=== PATIENT | female | born 1940 | race Caucasian/White ===

== ENCOUNTER → 2020-02-13 11:51 | Outpatient (CLI) | payer MEDICARE, OTHER, SELFPAY ==
--- NOTE | ~2020-02-13 | XR_ITS ---
XR cervical spine 4-5V DATE: 02/13/2020 12:27 INDICATION: Neck pain TECHNIQUE: Upright AP, open-mouth, lateral and swimmer views COMPARISON: None FINDINGS: There is straightening and mild reversal of the cervical spine. C1 and C2 are normally aligned and the odontoid process is intact. No fracture or dislocation or lock ed facet. No prevertebral soft tissue swelling. There is mild anterolisthesis at C2-3. There is moderately prominent degenerative disc disease at C3-4. There is severe degenerative disease and mild retrolisthesis at C4-5 and C5-6. There is severe degene rative disease at C6-7. There is uncovertebral joint spurring at C3-4, C4-5, C5-6 and C6-7. IMPRESSION: Straightening/reversal cervical curvature Extensive degenerative disc disease at C4-5 through C6-7, with associated mild retrolisthesis at C4-5 and C5-6 Reviewed, dictated and finalized at location A.
--- NOTE | ~2020-02-13 | XR_ITS ---
EXAMINATION: XR ankle LT min 3V DATE: 02/13/2020 12:27 INDICATION: Left ankle pain. TECHNIQUE: 4 views of left ankle were obtained. COMPARISON: None. FINDINGS: Bone alignment is normal. No fracture. Joint spaces are well maintained. There are enthesop hytes at the plantar and posterior aspects of calcaneal tuberosity. Ankle soft tissue swelling is not ed. IMPRESSION: 1. No fracture. Reviewed, dictated and finalized at location A. IMPRESSION: 1. No fracture.
== END ==
PROVIDERS: PCP Family Medicine; Visit Provider Family Medicine
DX: M25.572 Pain in left ankle and joints of left foot (principal); M50.323 Other cervical disc degeneration at C6-C7 level
CPT/HCPCS: 72050; 73610

== ENCOUNTER 2020-03-23 09:05 | Outpatient (CLI) | payer MEDICARE, OTHER, SELFPAY ==
--- NOTE | ~2020-03-23 | XR_ITS ---
EXAMINATION: XR ankle LT min 3V DATE: 03/23/2020 09:39 INDICATION: Left ankle pain. TECHNIQUE: 3 views of left ankle with weightbearing were obtained. COMPARISON: Left ankle radiographs 02/13/2020 FINDINGS: Pes planus is noted. No fracture. There is a 5.2 cm lesion in the intramedullary space of d istal tibial metadiaphysis in a pattern of chondroid matrix, likely an enchondroma. Osteopenia is not ed. Joint spaces are normal. There are enthesophytes at the plantar and posterior aspects of calcanea l tuberosity. Ankle soft tissue swelling is noted. IMPRESSION: 1. Pes planus. 2. Sclerotic lesion in distal tibial metadiaphysis, likely an enchondroma. Reviewed, dictated and finalized at location B. CTOR OF OPTIMIZATION
== END 2020-03-23 09:06 | disposition home or self-care (01) ==
LOC: CHSLAB 09:08
PROVIDERS: PCP Family Medicine; Visit Provider Orthopaedic Surgery
DX: M25.572 Pain in left ankle and joints of left foot (principal)
CPT/HCPCS: 73610

== ENCOUNTER 2020-04-07 14:05 | Outpatient (CLI) | payer MEDICARE, OTHER, SELFPAY ==
--- NOTE | ~2020-04-07 | MM_ITS ---
EXAMINATION: MM screening fallon BI w miladis HISTORY: Screening mammogram TECHNIQUE: Craniocaudal and mediolateral oblique 3-D tomosynthesis images were obtained and synthetic 2-D images were generated. CAD analysis was submitted and interpreted. COMPARISON: 12/13/2018, 03/15/2017, 03/08/2016 bilateral digital screening mammogram examinations BREAST PARENCHYMAL COMPOSITION: The breasts are almost entirely fatty. FINDINGS: There are scattered bilateral benign calcifications as well as some arterial calcification. There is no evidence of suspicious mass, calcification, or architectural distortion to suggest malig ivan in either breast. There has been no suspicious interval change. IMPRESSION: 1. No mammographic evidence of malignancy. 2. Recommend routine screening mammography in one year. BI-RADS Category 2: Benign finding(s). Reviewed, dictated and finalized at location A. 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
--- NOTE | ~2020-04-07 | DEXA_ITS ---
Bone Density Report Name: Taylor Perez Age: 79 Sex: Female Ethnicity: White Date of : 1940 Indication: osteopenia; height loss; prior fracture; hysterectomy; Referring Provider: YECENIA MEHTA Study: Bone densitometry was performed. Exam Date: April 07, 2020 Accession number: [id number] Bone Density: Region BMD T-score Z-score Classification AP Spine (L1, L2, L3) 0.906 -1.0 1.6 Normal Femoral Neck (Right) 0.490 -3.2 -0.9 Osteoporosis Total Hip (Right) 0.680 -2.2 -0.1 Osteopenia World Health Organization criteria for BMD impression classify patients as: Normal (T-score at or above -1.0), Osteopenia (T-score between -1.0 and -2.5), or Osteoporosis (T-score at or below -2.5). 10-year Fracture Risk: FRAX not reported because: Some T-score for Spine Total or Hip Total or Femoral Neck at or below -2.5 Prior hip or vertebral fracture Previous Exams: Region Exam Age BMD T-score BMD Change BMD Change Date g/cm2 vs Baseline vs Previous AP Spine(L1, L2, L3) 04/07/2020 79 0.906 -1.0 0.154(20.5%)# 0.065(7.8%)* 03/15/2017 76 0.840 -1.6 0.089(11.8%)# 0.015(1.8%)# 02/12/2015 74 0.825 -1.8 0.073(9.8%)# 0.077(10.3%)# 12/15/2010 69 0.748 -2.5 -0.004(-0.5%) 0.016(2.2%) 10/21/2008 67 0.732 -2.6 -0.020(-2.6%) -0.020(-2.6%) 03/23/2005 64 0.752 -2.4 Total Hip(Right) 04/07/2020 79 0.680 -2.2 0.016(2.4%)# 0.007(1.0%) 03/15/2017 76 0.673 -2.2 0.009(1.4%)# -0.014(-2.0%)# 02/12/2015 74 0.687 -2.1 0.023(3.5%)# -0.010(-1.4%)# 12/15/2010 69 0.697 -2.0 0.033(5.0%)* 0.039(6.0%)* 10/21/2008 67 0.657 -2.3 -0.007(-1.0%) -0.007(-1.0%) 03/23/2005 64 0.664 -2.3 *Denotes significance at 95% confidence level, LSC for AP Spine = 0.022 g/cm2, LSC for Total Hip = 0.027 g/cm2 Clinical Information Provided by Patient: Have had a previous hip or vertebral fracture Has had a low trauma fracture Has used the following medications: Vitamin D, Calcium Has the following medical conditions: Hysterectomy Patient maximum height was 64 Menopause Age: 49 No regular weight bearing exercise Drinks caffeinated beverages Onset of menses at age 10 Number of children 2 Impression: The patient has established osteoporosis, based on the Right Femoral Neck T-score and the existence of a prior fracture. The patient has risk factors, including: previous fracture. No significant bone loss was observed. Discussion: HIGH RISK OF FRACTURE. BONE DENSITY IS UNDESIRABLY
== END 2020-04-07 14:06 | disposition home or self-care (01) ==
LOC: ANHIMG 14:08
PROVIDERS: PCP Family Medicine; Visit Provider Family Medicine
DX: Z12.31 Encounter for screening mammogram for malignant neoplasm of breast (principal); Z78.0 Asymptomatic menopausal state; M81.0 Age-related osteoporosis without current pathological fracture; M16.11 Unilateral primary osteoarthritis, right hip
CPT/HCPCS: 77063; 77067; 77080

== ENCOUNTER 2020-06-29 17:20 | Emergency (ER) | payer MEDICARE, OTHER, SELFPAY ==
--- NOTE | ~2020-06-29 | XR_ITS ---
XR ankle LT min 3V DATE: 06/29/2020 17:58 INDICATION: Left ankle pain following twisting injury. Ashley a pop. TECHNIQUE: 4 views COMPARISON: 03/23/2020 left ankle FINDINGS: Diffuse osteopenia. Plantar calcaneal enthesopathy. There is mild to moderate medial soft tissue swelling of the ankle. No fracture or dislocation of the ankle or disruption of the ankle mortise is detected. No periosteal reaction or bone destruction. Probable os tibiale externum, normal variant. IMPRESSION: Mild to moderate medial soft tissue swelling of the ankle No fracture or dislocation is evident Reviewed, dictated and finalized at location A.
[2020-06-29 17:32] VITALS: BP 130/88; PULSE 80; RESP 18; TEMP 36.6; O2SAT 98
--- NOTE | 2020-06-29 17:44 | ED.LOWEXIN ---
HPI - Extremity Injury (Lower) General Chief Complaint: Fall Stated Complaint: pain in L ankle Time Seen by Provider: 06/29/20 17:40 Source: patient and RN notes reviewed Mode of arrival: wheelchair Limitations: no limitations History of Present Illness complaint: ankle injury Onset (ago): hour(s) (2) Injury: Left: ankle Type of Injury: eversion Place: home Severity: moderate Relieving factors: nothing Exacerbating factors: weight bearing, movement and palpation Context: fall and walking Associated symptoms: snap/pop sensation Other symptoms: none Treatments prior to arrival: cold therapy Related Data Home Medications Medication Instructions Recorded Confirmed brimonidine 0.1 % eye drops 1 drop EACH EYE Q8H 05/14/19 06/29/20 cholecalciferol (vitamin D3) 50 2,000 unit PO DAILY 05/14/19 06/29/20 mcg (2,000 unit) tablet coenzyme Q10 100 mg capsule 100 mg PO DAILY 05/14/19 06/29/20 ibuprofen 200 mg tablet 200 mg PO Q6H PRN 05/14/19 06/29/20 multivitamin 1 tablet PO DAILY 05/14/19 06/29/20 C,E,zinc,copper [id number] See Rx Instructions .ROUTE .COMPLEX 03/23/20 06/29/20 omega-3 fatty acids 1,000 mg 1,000 mg PO DAILY 03/23/20 06/29/20 capsule vitamin B complex 1 tablet PO DAILY 03/23/20 06/29/20 Allergies Allergy/AdvReac Type Severity Reaction Status Date / Time cephalexin Allergy Unknown Unknown Verified 03/23/20 11:00 meperidine Allergy Unknown Unknown Verified 03/23/20 11:00 alendronate sodium AdvReac Intermediate upset Verified 03/23/20 11:00 [From Fosamax] stomach Review of Systems Review of Systems: All systems reviewed & are unremarkable except as noted in HPI and below PMFSH Past Medical History Medical History Ankle arthritis Arthritis Bleeding nose GERD (gastroesophageal reflux disease) Hearing loss High cholesterol Hoarseness HTN (hypertension) Vitamin D deficiency disease Wears glasses Surgical History Surgical History H/O: hysterectomy History of hip surgery History of knee surgery Family History Family History Mother Family history of malignant neoplasm Family history of lymphoma, Onset Age: 81 Sibling Family history of diabetes mellitus in first degree relative Father Family history of pancreatic cancer, Onset Age: 58 Other Arthritis Cerebrovascular accident Diabetes mellitus Family history of lung cancer High cholesterol Hypertension Social History Social History Smoking status: Never smoker Alcohol intake: never Gender identity (if verbalized by the patient): Female Exam Const: General: healthy appearing, no acute distress and alert Nutritional Appearance: well nourished Orientation/consciousness: patient oriented x3 HENMT: Head: normal to inspection Ears: external ears normal Eyes: Conjunctivae: conjunctivae normal Pupils: Equal, round and reactive pupils present EOM: EOMs intact bilaterally Neck: Neck: normal visual inspection Resp: Effort & Inspection: normal respiratory effort Auscultation: clear to auscultation bilaterally Cardio: Rate: regular rate Rhythm: regular rhythm GI: GI Palp: Yes Soft to palpation and No Tenderness to palpation present (GI) Auscultation: normal bowel sounds Back/Spine/Pelvis: Cervical Spine: cervical ROM normal Thoracic/Lumbar Spine: thoraco-lumbar ROM normal Skin: General skin exam: normal color Rashes: no rashes Neuro: General: patient oriented x3, moves all extremities, no meningeal signs and no focal motor deficits Speech: normal speech Extrem: General: normal exam except as noted and no clubbing, cyanosis or edema Left lower extremity: ankle Details: tenderness Location: of the medial malleolus, swelling Details: medially and abnormal ROM Details: pain with ac
[2020-06-29 18:48] VITALS: BP 130/80; PULSE 90; RESP 18; TEMP 36.6; O2SAT 98
--- NOTE | 2020-07-06 17:15 | PC.NURSE ---
late note 06/29/2020 1830 air splint applied 1845 toes laya well, no discomforter
== END 2020-06-29 18:49 | disposition home or self-care (01) ==
PROVIDERS: Emergency Provider Emergency Medicine; PCP Family Medicine
DX: S93.402A Sprain of unspecified ligament of left ankle, initial encounter (principal); W19.XXXA Unspecified fall, initial encounter
CPT/HCPCS: 29515; 73610; 99282; 99283; L4350

== ENCOUNTER → 2021-08-18 12:16 | Outpatient (CLI) | payer MEDICARE, OTHER, SELFPAY ==
--- NOTE | ~2021-08-18 | XR_ITS ---
EXAM: XR thoracic spine 2V, [id number] HISTORY: M54.6 - Pain in thoracic spine COMPARISON: None available FINDINGS: Severely decreased bone density. Scoliosis. Multilevel mild degenerative disc disease. Sen escent lung changes. Aortic ectasia. Cholecystectomy. IMPRESSION: No acute osseous finding in the chest, ribs or thoracic spine. Reviewed, dictated and finalized at location K. IMPRESSION: No acute osseous finding in the chest, ribs or thoracic spine.
== END ==
PROVIDERS: PCP Family Medicine; Visit Provider Family Medicine
DX: M54.6 Pain in thoracic spine (principal); R07.81 Pleurodynia
CPT/HCPCS: 71101; 72070

== ENCOUNTER 2021-08-22 15:18 | Emergency (ER) | payer MEDICARE, OTHER, SELFPAY ==
--- NOTE | ~2021-08-22 | XR_ITS ---
EXAM: XR ankle LT min 3V HISTORY: ankle fracture on foot radiographs COMPARISON: X-ray of left foot, same date. FINDINGS: Transverse fracture of the medial malleolus, with lateral displacement. Oblique fracture o f the left distal fibula, extending to the joint line, with lateral displacement. Lateral displacemen t of the talus relative to the tibial plafond. No definite posterior malleolus fracture. Overlying so ft tissue swelling. IMPRESSION: Laterally displaced bimalleolar left ankle fracture, with lateral tibiotalar dislocation. Reviewed, dictated and finalized at location K. IMPRESSION: Laterally displaced bimalleolar left ankle fracture, with lateral tibiotalar di slocation.
--- NOTE | ~2021-08-22 | XR_ITS ---
EXAM: XR finger 4th LT min 2V, XR finger 5th LT min 2V HISTORY: abnormality on hand exam COMPARISON: X-ray hand, same date FINDINGS: Decreased mineralization. Mild scattered degenerative changes, most severe in the left fif th DIP. Curvilinear ossific density projects along posterior aspect of the left fourth PIP, likely an avulsion fracture fragment from the proximal fourth middle phalange. No other fracture detected. IMPRESSION: Likely small avulsion fracture of the dorsal aspect of the left fourth middle phalange. Reviewed, dictated and finalized at location K. IMPRESSION: Likely small avulsion fracture of the dorsal aspect of the left fourth middle p halange.
--- NOTE | ~2021-08-22 | XR_ITS ---
EXAM: XR foot LT min 3V HISTORY: lateral pain and swelling after rolling it COMPARISON: None available FINDINGS: Decreased mineralization. No foot fracture or dislocation. No lytic or blastic lesion. Mil d hallux valgus. Mild degenerative change at the first MTP. Large os articularis. No erosion or perio steal change. Incidental note of medial and lateral malleolus fractures with overlying soft tissue sw elling. IMPRESSION: Incidental note of medial and lateral malleolus fractures, recommend dedicated ankle x-rays for furth er evaluation. No acute osseous finding in the left foot. Reviewed, dictated and finalized at location K. IMPRESSION: Incidental note of medial and lateral malleolus fractures, recommend dedicated ankle x-rays for further evaluation. No acute osseous finding in the left foot.
--- NOTE | ~2021-08-22 | XR_ITS ---
EXAM: XR hand LT min 3V HISTORY: pain swelling after a fall @ 4-5th digits COMPARISON: None available FINDINGS: Normal mineralization. No definite acute fracture or dislocation. Linear opacity projectin g over the fourth or fifth digit in the lateral view of uncertain significance. Lateral view is limit ed due to overlapping fingers. Old ulnar styloid fracture. No lytic or blastic lesion. Scattered mild degenerative changes. No erosion or periosteal change. Soft tissues within normal limits. IMPRESSION: Radiopacity probably projecting over the fourth PIP, may represent a fracture fragment artifact or de bris. Recommend dedicated radiographs of the fourth and fifth fingers. Reviewed, dictated and finalized at location K. IMPRESSION: Radiopacity probably projecting over the fourth PIP, may represent a fracture f ragment artifact or debris. Recommend dedicated radiographs of the fourth and f ifth fingers.
[2021-08-22 17:15] VITALS: BP 188/99; PULSE 71; RESP 18; TEMP 36.6; O2SAT 97
--- NOTE | 2021-08-22 18:12 | ED.GENADULT ---
HPI - General Adult General Chief complaint: Fall Stated complaint: left ankle injury Source: patient and family Mode of arrival: ambulatory Limitations: no limitations History of Present Illness HPI narrative: Taylor is an 80F with a PMH of osteoporosis, GERD, HTN, and OA that presented to the ED after a fall. She had an inversion ankle sprain and rolled out of a chair and landed on her left hand. She did not hit her head or neck. There was no LOC. He developed a lot of swelling and pain in her left ankle and hand so she came to the ED. Related Data Home Medications Medication Instructions Recorded Confirmed cholecalciferol (vitamin D3) 50 2,000 unit PO DAILY 05/14/19 09/14/21 mcg (2,000 unit) tablet (Vitamin D3) coenzyme Q10 100 mg capsule (Co 100 mg PO DAILY 05/14/19 09/14/21 Q-10) pyridoxine (vitamin B6) 100 mg 100 mg PO DAILY 03/02/21 09/14/21 tablet brimonidine 0.2 % eye drops 1 drp EACH EYE BID 09/02/21 09/14/21 calcium citrate 250 mg 2 tablet PO BID 09/14/21 09/14/21 calcium-vitamin D3 5 mcg (200 unit) tablet (Citracal Regular) cyanocobalamin (vitamin B-12) 1,000 mcg PO DAILY 09/14/21 09/14/21 1,000 mcg tablet famotidine 1 tablet PO DAILY 09/14/21 09/14/21 multivitamin 1 tablet PO DAILY 09/14/21 09/14/21 w-min#[id number] 2.8 mg-500 mcg-500 mcg tablet vitamin A-vitamin C-vit E-min 1 tablet PO DAILY 09/14/21 09/14/21 tablet Allergies Allergy/AdvReac Type Severity Reaction Status Date / Time alendronate sodium AdvReac Intermediate upset Verified 09/06/21 12:24 [From Fosamax] stomach cephalexin AdvReac Unknown YEAST Verified 09/06/21 12:24 INFECTION meperidine AdvReac Unknown LOW BLOOD Verified 09/06/21 12:24 PRESSURE, N/V Review of Systems Constitutional: Constitutional: Reports no additional constitutional complaints Eyes: Eyes: Reports no additional eye complaints ENT: Reports system reviewed and no additional complaints, except as documented Cardiovascular: Cardiovascular: Reports no additional cardiovascular complaints Respiratory: Respiratory: Reports no additional respiratory complaints Gastrointestinal: Gastrointestinal: Reports no additional gastrointestinal complaints Genitourinary: Genitourinary: Reports no additional female genitourinary complaints Musculoskeletal: Musculoskeletal: Reports as per HPI Integumentary/Breasts: Skin/Breast: Reports system reviewed and no additional complaints, except as docu Neurologic: Reports system reviewed and no additional complaints, except as documented Psychiatric: Psychiatric: Reports no additional psychiatric complaints Endocrine: Endocrine: Reports no additional endocrine complaints Hematologic/Lymphatic: Hematologic/Lymphatic: Reports no additional hematologic/lymphatic complaints Allergic/Immunologic: Allergic/Immunologic: Reports no additional allergic/immunologic complaints [facility] Past Medical History Medical History Arthritis Gastroesophageal reflux disease Glaucoma Hearing loss High cholesterol Hypertension Osteopenia Skin cancer Vitamin D deficiency disease Surgical History Surgical History History of abdominal supracervical subtotal hysterectomy (04/2014) History of benign breast biopsy History of bilateral salpingo-oophorectomy (04/2014) History of colonoscopy Internal hemorrhoids and diverticulosis. History of laparoscopic cholecystectomy (08/2016) History of meniscectomy of right knee (08/2012) History of open reduction and internal fixation (ORIF) procedure (09/06/21) Displaced left ankle trimalleolar fracture. History of repair of hip fracture (09/2008) Internal fixation with gamma nail of a left intertrochanteric hip fracture. History of sacrocolpopexy (04/2014) For uterine prolapse. Status post trigger finger release (08/2009) Right 3rd finger.
[2021-08-22] MEDS: HYDROcodone/acetaminophen (*CRX) 5-325 MG TABLET 1 TAB PO (18:45)
--- NOTE | 2021-08-22 19:29 | PC.NURSE ---
report to GALILEA prater
[2021-08-22 19:30] VITALS: BP 169/110; PULSE 75; RESP 20; O2SAT 99
--- NOTE | 2021-08-22 19:33 | PC.NURSE ---
report to GALILEA prater
[2021-08-22 19:40] VITALS: BP 174/76; PULSE 72; RESP 20; O2SAT 97
--- NOTE | 2021-08-22 21:29 | PC.NURSE ---
Pt resting in bed c family at side, ice in place to splinted Lt ankle/foot. Awaiting call back from [facility] for bed placement.
[2021-08-22 21:35] VITALS: BP 183/105; PULSE 76; RESP 20; O2SAT 96
[2021-08-22 22:47] LABS: SARS-CoV-2 Ag Negative (Negative)
[2021-08-23 00:04] VITALS: BP 120/88; PULSE 65; RESP 20; TEMP 36.4; O2SAT 100
--- NOTE | 2021-08-23 00:40 | PC.NURSE ---
Report given to [facility] for pt transfer. Pt stable, no c/o at this time.
== END 2021-08-23 00:45 | disposition short-term general hospital (02) ==
PROVIDERS: Emergency Provider Family Medicine; PCP Family Medicine
DX: S82.892A Other fracture of left lower leg, initial encounter for closed fracture (principal); S62.655A Nondisplaced fracture of middle phalanx of left ring finger, initial encounter for closed fracture; W19.XXXA Unspecified fall, initial encounter; Z20.822 Contact with and (suspected) exposure to COVID-19; I10 Essential (primary) hypertension; K21.9 Gastro-esophageal reflux disease without esophagitis
CPT/HCPCS: 73130; 73140; 73610; 73630; 87426; 99285; A9270; C9803

== ENCOUNTER 2021-08-23 02:05 | Inpatient (IN) | payer MEDICARE, OTHER, SELFPAY ==
--- NOTE | ~2021-08-23 | XR_ITS ---
XR surgery orthopedic DATE: 08/24/2021 15:53 INDICATION: Bimalleolar ankle fracture/lateral dislocation TECHNIQUE: 2 spot views of the left ankle 27.6 seconds fluoroscopy time 1.75 mGy COMPARISON: 08/22/2021 left ankle FINDINGS: Again noted is a bimalleolar fracture/lateral dislocation. There is mild residual lateral d isplacement at the medial and lateral malleolar fractures and lateral subluxation. IMPRESSION: Bimalleolar fracture/lateral subluxation Reviewed, dictated and finalized at [facility]. Reviewed, dictated and finalized at [facility].
--- NOTE | ~2021-08-23 | CT_ITS ---
EXAMINATION: CT ankle LT wo con DATE: 08/26/2021 14:45 INDICATION: Left ankle fracture and pain status post reduction. TECHNIQUE: Computed tomography (CT) of the left ankle was performed without intravenous contrast. Aut omated exposure control and iterative reconstruction technique were employed. The dose-length product was 303.68 mGy-cm. 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 There is a comminuted, predominantly oblique fracture of medial malleolus. The main distal fracture fragment demonstrates 2 mm lateral displacement and 2 mm posterio r displacement. There is a comminuted, predominantly oblique fracture of distal fibula. The medial as pect of the fracture line is 3 mm proximal to the level of the tibial plafond posteriorly and at the level of the tibial plafond anteriorly. The main distal fracture fragment demonstrates 3 mm lateral d isplacement. There is a comminuted, predominantly coronal fracture of posterior malleolus with less t silver 2 mm displacement. There are small subchondral cysts of the talar dome. There is mild midfoot ost eoarthritis. There are enthesophytes at the posterior and plantar aspects of calcaneal tuberosity. IMPRESSION: 1. Trimalleolar ankle fracture with interval improvement in alignment. Reviewed, dictated and finalized at [facility].
--- NOTE | ~2021-08-23 | XR_ITS ---
EXAM: XR hand LT min 3V HISTORY: TRAUMA, PAIN, SWELLING LEFT HAND 4TH DIGIT COMPARISON: 08/22/2021. FINDINGS: Decreased mineralization. Redemonstration of the small avulsion fracture off the dorsal as pect of the left fourth middle phalange. No other acute fracture or dislocation. No lytic or blastic lesion. Scattered mild degenerative changes. Old ulnar styloid fracture. No erosion or periosteal michell nge. Soft tissues within normal limits. IMPRESSION: Stable small avulsion fracture off the dorsal aspect of the left fourth middle phalange. Reviewed, dictated and finalized at [facility].
[2021-08-23 01:34] VITALS: BP 156/96; PULSE 72; RESP 18; TEMP 37.1; O2SAT 95; BMI 27.8
--- NOTE | 2021-08-23 04:04 | ADMGEN ---
This patient, Taylor Perez, was admitted to 3 [facility] Surg Room 330-02 at 0115. Patient/family oriented to hospital policies and general routines including ID bracelet, bed and alarms, visiting hours, pain management, procedures, bathroom and other care routines, personal items, smoking policy, room service/diet, and visiting hours. Information on how to activate the Rapid Response Team has been discussed. Patient/Family are encouraged to report perceived risks to care and to ask questions if they do not understand what they are told or what they should do.
--- NOTE | 2021-08-23 12:47 | PM.CNOR ---
Assessment and Plan Assessment and plan (1) Bimalleolar ankle fracture: Qualifiers: Encounter type: initial encounter Fracture type: closed Laterality: left Qualified Code(s): S82.842A - Displaced bimalleolar fracture of left lower leg, initial encounter for closed fracture Code(s): S82.843A - Displaced bimalleolar fracture of unspecified lower leg, initial encounter for closed fracture Status: Acute Assessment and Plan: ALISON IS A 80 YO FEMALE WITH HX OF LEFT ANKLE INJURY AND NOW WITH A LEFT BIMALLEOLAR ANKLE FRACTURE WITH SIGNIFICANT DISPLACEMENT. SHE WILL NEED ORIF LEFT ANKLE. SHE WILL NEED TO BE EXAMINED UNDER GENERAL ANESTHESIA AND HER SKIN EXAMINED FOR ANY SIGNIFICANT SWELLING AND ECCHYMOSIS. SHE MAY REQUIRE A REPEAT CLOSED REDUCTION WITH SPLINTING IN ORDER TO ALLOW FOR DECREASE IN SOFT TISSUE SWELLING AND IMPROVEMENT OF HER ECCHYMOSIS IF SHE IS TOO SWOLLEN. XRAYS WERE REVIEWED AND SHOW A DISPLACED LEFT BIMALLEOLAR ANKLE FRACTURE. DISCUSSED NONOPERATIVE AND OPERATIVE TREATMENT OPTIONS WITH THE PATIENT. THE PATIENT'S QUESTIONS WERE ANSWERED. THE PATIENT DESIRES OPERATIVE TREATMENT. DISCUSSED __CLOSED REDUCTION AND SPLINTING WITH POSSIBLE ORIF LEFT ANKLE FRACTURE . RISKS OF SURGERY INCLUDING BUT NOT LIMITED TO NEUROVASCULAR DAMAGE, WOUND COMPLICATIONS, BLOOD CLOT, PULMONARY EMBOLUS, STROKE, VA, ANESTHETIC RISKS UP TO AND INCLUDING WERE REVIEWED. CONTINUED PAIN AND POSSIBLE DYSFUNCTION WERE EXPLAINED. NO GUARANTEES WERE OFFERED. THE PATIENT UNDERSTANDS AND WISHES TO PROCEED. History of Present Illness HPI Consult date: 08/23/21 Chief complaint: Ankle Fracture Narrative: ALISON IS HERE FOR HER LEFT ANKLE INJURY SHE SUSTAINED YESTERDAY AFTERNOON. SHE WAS SEEN IN THE ED AT [facility] THEN TRANSFERRED TO [place] FOR DEFINITIVE TREATMENT. SHE UNDERWENT CLOSED REDUCTION IN THE ED AND PLACED IN A SPLINT FOR A LEFT BIMALLEOLAR ANKLE FRACTURE. SHE C/O LEFT ANKLE PAIN. SHE DENIES ANY OTHER LOWER OR UPPER EXTREMITY PAIN ASIDE FROM LEFT HAND PAIN. SHE HAS ECCHYMOSIS AND TENDERNESS AND DIFFICULTY MOVING THE 4TH FINGER. Review of Systems Review of Systems: All systems reviewed & are unremarkable except as noted in HPI and below Constitutional: Constitutional: Reports no additional constitutional complaints Eyes: Eyes: Reports no additional eye complaints ENT: Reports system reviewed and no additional complaints, except as documented Cardiovascular: Cardiovascular: Reports no additional cardiovascular complaints Respiratory: Respiratory: Reports no additional respiratory complaints Gastrointestinal: Gastrointestinal: Reports no additional gastrointestinal complaints Genitourinary: Genitourinary: Reports no additional female genitourinary complaints Musculoskeletal: Musculoskeletal: Reports as per HPI and Reports other (LEFT HAND PAIN) Integumentary/Breasts: Skin/Breast: Reports system reviewed and no additional complaints, except as docu Neurologic: Reports system reviewed and no additional complaints, except as documented Psychiatric: Psychiatric: Reports no additional psychiatric complaints Endocrine: Endocrine: Reports no additional endocrine complaints Hematologic/Lymphatic: Hematologic/Lymphatic: Reports no additional hematologic/lymphatic complaints Allergic/Immunologic: Allergic/Immunologic: Reports no additional allergic/immunologic complaints PMF Past Medical History Medical History Ankle arthritis Anosmia Arthritis Bleeding nose GERD (gastroesophageal reflux disease) Hearing loss High cholesterol Hoarseness HTN (hypertension) Vitamin D deficiency disease Wears glasses Surgical History Surgical History H/O: hysterectomy History of hip surgery History of knee surgery Family History Family History (Reviewed 08/23/21 @ 12:51 by Bridger Stephenson
--- NOTE | 2021-08-23 13:03 | WPDHPUPDATE1 ---
History and Physical Update Update Date/Time: 08/23/21 13:03 History and Physical has been reviewed, including an updated exam of the patient. There are NO changes in the patient's condition. Risks, benefits, and alternatives have been discussed and questions answered. Patient agrees to proceed with procedure.
[2021-08-23 13:48] VITALS: BP 177/85; PULSE 75; RESP 18; TEMP 36.5; O2SAT 97
--- NOTE | 2021-08-23 13:52 | PM.IMHP ---
H&P: HPI History of Present Illness Date/Time: 08/23/21 13:52 Chief Complaint: fall from stool w traumatic injury Narrative: 80-year-old female with glaucoma, GERD, osteoarthritis, hypertension, and diet-controlled high cholesterol is brought to the emergency room after falling from his stool where we she was sitting trying to trial any peer if she. Patient states that she fell down to her left side striking her 4th finger and her ankle. She was unable to stand without assistance and was immediately brought to the emergency room where she was found to a bimalleolar fracture and a small avulsion fracture of the left 4th middle phalange. Review of systems is positive for chronic joint pains associated with her osteoarthritis and ongoing dysphagia to pills which she has previously undergone esophageal dilation with Gastroenterology. 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 De Jesus so she can establish with him. Review of Systems Review of Systems: All systems reviewed & are unremarkable except as noted in HPI and below PMFSH Past Medical History Medical History Ankle arthritis Anosmia Arthritis Bleeding nose GERD (gastroesophageal reflux disease) Hearing loss High cholesterol Hoarseness HTN (hypertension) Vitamin D deficiency disease Wears glasses Surgical History Surgical History H/O: hysterectomy History of hip surgery History of knee surgery Family History Family History Mother Family history of malignant neoplasm Family history of lymphoma, Onset Age: 81 Sibling Family history of diabetes mellitus in first degree relative Father Family history of pancreatic cancer, Onset Age: 58 Other Arthritis Cerebrovascular accident Diabetes mellitus Family history of lung cancer High cholesterol Hypertension Social History Social History Smoking status: Never smoker Second hand tobacco smoke exposure: No Alcohol intake: former Substance use: never Substance use type: does not use Gender identity (if verbalized by the patient): Female Spiritual care concerns: No Meds Home Medications and Allergies Home Medications Medication Instructions Recorded Confirmed Type brimonidine 0.1 % eye drops 1 drop EACH EYE Q8H 05/14/19 08/23/21 History cholecalciferol (vitamin D3) 50 2,000 unit PO DAILY 05/14/19 08/23/21 History mcg (2,000 unit) tablet coenzyme Q10 100 mg capsule 100 mg PO DAILY 05/14/19 08/23/21 History ibuprofen 200 mg tablet 200 mg PO Q6H PRN 05/14/19 08/23/21 History multivitamin 1 tablet PO DAILY 05/14/19 08/23/21 History pyridoxine (vitamin B6) 100 mg 100 mg PO DAILY 03/02/21 08/23/21 History tablet quinapril 40 mg tablet 40 mg PO DAILY #90 tablet 03/08/21 08/23/21 Rx metoprolol tartrate 50 mg PO DAILY 08/23/21 08/23/21 History Allergies Allergy/AdvReac Type Severity Reaction Status Date / Time cephalexin Allergy Unknown Unknown Verified 08/03/21 10:03 meperidine Allergy Unknown Unknown Verified 08/03/21 10:03 alendronate sodium AdvReac Intermediate upset Verified 08/03/21 10:03 [From Fosamax] stomach Vital Signs Vital Signs - 24 hr 08/23/21 01:34 08/23/21 13:48 Temperature 98.7 F 97.7 F Pulse Rate 72 75 Respiratory Rate 18 18 Blood Pressure 156/96 H 177/85 H Pulse Oximetry 95 97 Exam Const: General: comfortable and no acute distress HENMT: Mouth: Yes moist mucous membranes Eyes: General: appearance normal, both eyes and all related structures Sclera: sclerae normal EOM: EOMs intact bilaterally Neck: Neck: supple and no JVD Lymphatic: lymphadenopathy not noted Resp: Effort & Inspection: normal res
--- NOTE | 2021-08-23 15:38 | WPDANESEPPF ---
Anes - Initial Pre Proc Eval Procedure: Operation Date: 08/23/21 17:00 Proposed Procedures p Closed, Possible Open Reduction Internal Fixation Left Ankle Fracture - Bridger Ernst MD Date/Time: 08/23/21 15:38 Surgeon: Swapnil Wilson MD Pre Op Diagnosis: Ankle Fracture Patient Data Age: 80 Gender: F Height: 1.63 m Weight: 73.4 kg Last Vital Signs Temp 36.5 C 08/23/21 13:48 Pulse 75 08/23/21 13:48 Resp 18 08/23/21 13:48 BP 177/85 H 08/23/21 13:48 Pulse Ox 97 08/23/21 13:48 Allergies Allergy/AdvReac Type Severity Reaction Status Date / Time cephalexin Allergy Unknown Unknown Verified 08/03/21 10:03 meperidine Allergy Unknown Unknown Verified 08/03/21 10:03 alendronate sodium AdvReac Intermediate upset Verified 08/03/21 10:03 [From Fosamax] stomach Home Medications Medication Instructions Recorded Confirmed Type brimonidine 0.1 % eye drops 1 drop EACH EYE Q8H 05/14/19 08/23/21 History cholecalciferol (vitamin D3) 50 2,000 unit PO DAILY 05/14/19 08/23/21 History mcg (2,000 unit) tablet coenzyme Q10 100 mg capsule 100 mg PO DAILY 05/14/19 08/23/21 History ibuprofen 200 mg tablet 200 mg PO Q6H PRN 05/14/19 08/23/21 History multivitamin 1 tablet PO DAILY 05/14/19 08/23/21 History pyridoxine (vitamin B6) 100 mg 100 mg PO DAILY 03/02/21 08/23/21 History tablet quinapril 40 mg tablet 40 mg PO DAILY #90 tablet 03/08/21 08/23/21 Rx metoprolol tartrate 50 mg PO DAILY 08/23/21 08/23/21 History Patient hx anesthesia problems: none Family hx anesthesia problems: none Results Review: All pre-operative results and documents have been reviewed as part of the pre-operative evaluation. [facility] Past Medical History Medical History Ankle arthritis Anosmia Arthritis Bleeding nose GERD (gastroesophageal reflux disease) Hearing loss High cholesterol Hoarseness HTN (hypertension) Vitamin D deficiency disease Wears glasses Surgical History Surgical History H/O: hysterectomy History of hip surgery History of knee surgery Family History Family History Mother Family history of malignant neoplasm Family history of lymphoma, Onset Age: 81 Sibling Family history of diabetes mellitus in first degree relative Father Family history of pancreatic cancer, Onset Age: 58 Other Arthritis Cerebrovascular accident Diabetes mellitus Family history of lung cancer High cholesterol Hypertension Social History Social History Smoking status: Never smoker Second hand tobacco smoke exposure: No Alcohol intake: former Substance use: never Substance use type: does not use Gender identity (if verbalized by the patient): Female Spiritual care concerns: No Anes - Eval Final PreProcedure Day of Procedure 08/23/21 15:38 Patient weight: overweight Heart: regular rate and rhythm Lungs: clear to auscultation Airway: Mallampati scale class II Neurological: other (alert) Last oral intake: >/= 8 hours ASA classification: III Emergent: no Anesthetic plan: proceed Anesthesia type and monitoring: general LMA and standard monitoring Results Review: All pre-operative results and documents have been reviewed as part of the pre-operative evaluation. Informed Consent: The patient's anesthetic plan and its attendant risks and benefits were discussed with the patient/family/POA. Questions were solicited and answers provided to the satisfaction of the patient/family/POA.
[2021-08-23 15:50] VITALS: BP 162/91; PULSE 81; RESP 20; TEMP 37.4; O2SAT 99
[2021-08-23] MEDS: LACTATED RINGERS 1,000 ML 30 ML IV CONT (15:51)
--- NOTE | 2021-08-23 15:58 | SUR.PREOP ---
CASE CANCELLED. WILL BE TOMORROW. DR CUMMINGS IN TO SPEAK TO PT.
--- NOTE | 2021-08-23 16:02 | SUR.PREOP ---
NOTIFIED FLOOR, PT RETURNING.
[2021-08-23] MEDS: HYDROcodone/acetaminophen (*CRX) 5-325 MG TABLET 1 TAB PO (17:17)
[2021-08-23] MEDS: DOCUSATE SODIUM 100 MG CAPSULE PO (17:18)
[2021-08-23] MEDS: DEXTROSE 5%/0.9% SOD CHL 1,000 ML 85 ML IV CONT (17:18)
[2021-08-23 20:45] VITALS: PULSE 95; RESP 18; O2SAT 95
[2021-08-23] MEDS: BRIMONIDINE TARTRATE 0.1% 5 ML OPHTH DROPS 1 DROP EACH EYE (20:47)
[2021-08-23 22:00] VITALS: BP 135/72; PULSE 95; RESP 18; TEMP 36.6; O2SAT 95
[2021-08-24] VITALS (12 sets, daily range): BP systolic 105–168; BP diastolic 74–98; PULSE 78–96; RESP 12–19; TEMP 36.2–36.7; O2SAT 92–100
[2021-08-24] MEDS: HYDROcodone/acetaminophen (*CRX) 5-325 MG TABLET 1 TAB PO (06:15)
[2021-08-24 06:21] LABS: Basophils Percent Auto 0.5 % (0.2-1.2); Eosinophils Absolute Auto 0.1 K/mm3 (0-0.3); Eosinophils Percent Auto 1.7 % (0-4.4); Hematocrit 37.7 % (37.0-47.0); Hemoglobin 12.5 g/dL (12.0-15.0); Immature Granulocyte Absolute 0.04 K/mm3 (0.00-0.031); Immature Granulocyte Percent A 0.5 % (0-0.5); Lymphocytes Absolute Auto 1.93 K/mm3 (0.9-3.2); Lymphocytes Percent Auto 25.2 % (18.3-44.2); Mean Corpuscular HGB Conc 33.2 g/dl (32-36); Mean Corpuscular Hemoglobin 34.2 pg (26-34); Mean Platelet Volume 10.3 fl (7.4-10.4); Monocytes Absolute Auto 0.9 K/mm3 (0.1-0.6); Monocytes Percent Auto 11.9 % (2.6-8.5); Neutrophils Absolute Auto 4.6 K/mm3 (1.3-6.7); Neutrophils Percent Auto 60.2 % (45.5-73.1); Platelet Count Result 150 k/mm3 (150-375); Red Blood Count 3.66 M/mm3 (4.2-5.4); Red Cell Distribution Width 12.6 % (11.5-14.5); White Blood Count 7.7 K/mm3 (4.5-10.0)
[2021-08-24 06:38] LABS: Anion Gap 6 mmol/L (8-16); Blood Urea Nitrogen 14 mg/dL (7-17); Calcium 8.2 mg/dL (8.4-10.2); Carbon Dioxide 23 mmol/L (22-30); Chloride 109 mmol/L (98-107); Estimated CRCL calculation 53 ml/min; Estimated Glomerular Filt Rate > 60; Glucose 105 mg/dL (65-110); Magnesium 1.9 mg/dL (1.6-2.3); Potassium 3.6 mmol/L (3.4-5.0); Sodium 138 mmol/L (137-145)
[2021-08-24] MEDS: CHOLECALCIFEROL 1,000 UNITS TABLET 2000 UNITS PO (10:34)
[2021-08-24] MEDS: METOPROLOL TARTRATE 50 MG TAB PO (10:35)
[2021-08-24] MEDS: PYRIDOXINE HCL 50 MG TABLET 100 MG PO (10:35)
[2021-08-24] MEDS: DOCUSATE SODIUM 100 MG CAPSULE PO ×2 (10:35→18:34)
[2021-08-24] MEDS: MULTIVITAMINS THERAPEUTIC TAB (*BKC) 1 TABLET PO (10:35)
[2021-08-24] MEDS: lisinopriL 20 MG TABLET 40 MG PO (10:36)
--- NOTE | 2021-08-24 11:22 | WPDHPUPDATE1 ---
History and Physical Update Update Date/Time: 08/24/21 11:22 History and Physical has been reviewed, including an updated exam of the patient. There are NO changes in the patient's condition. Risks, benefits, and alternatives have been discussed and questions answered. Patient agrees to proceed with procedure.
--- NOTE | 2021-08-24 12:41 | WPDGICN ---
Assessment and Plan Assessment and plan (1) Dysphagia: Code(s): R13.10 - Dysphagia, unspecified Status: Acute Assessment and Plan: Patient has difficulty swallowing feeling as though large pills become stuck in the upper portion of her chest in the throat area. I would recommend an EGD to evaluate this more thoroughly. However given her acute ankle fracture which will require surgery would defer this would suggest that EGD be performed as an outpatient. Patient has had previous exam by Dr. Kemp. She has become aware of Dr. De Jesus by advertise mailing in the past or I can perform this procedure. Would recommend elective outpatient referral for EGD to Gastroenterology at [place] for EGD. (2) Bimalleolar ankle fracture: Qualifiers: Encounter type: initial encounter Fracture type: closed Laterality: left Qualified Code(s): S82.842A - Displaced bimalleolar fracture of left lower leg, initial encounter for closed fracture Code(s): S82.843A - Displaced bimalleolar fracture of unspecified lower leg, initial encounter for closed fracture Status: Acute Assessment and Plan: Ankle fracture is currently being addressed by surgery anticipate surgical repair today. GI Consult Note Consult date/time: 08/24/21 12:41 HPI: Taylor Perez is a 80 year old female I am asked to see for dysphagia. Patient was in her usual state of health until yesterday when she fell and suffered an ankle fracture. She present emergency room was found to have a by malleolar ankle fracture. Surgery is anticipated today. Patient on review of systems with primary care service was found to have complaints of dysphagia. She states she has had dysphagia for many years. Review of records reveal in 2017 she underwent endoscopy by Dr. Kemp which revealed gastritis but no evidence of esophageal difficulties. Patient reports at 1 point she saw in [place] is unclear whether esophageal dilatation was performed. Patient states that she currently has difficulty with large pills. She feels as though the stick in the upper portion of her chest. Review of Systems Review of Systems: All systems reviewed & are unremarkable except as noted in HPI and below PMFSH Past Medical History Medical History Ankle arthritis Anosmia Arthritis Bleeding nose GERD (gastroesophageal reflux disease) Hearing loss High cholesterol Hoarseness HTN (hypertension) Vitamin D deficiency disease Wears glasses Surgical History Surgical History H/O: hysterectomy History of hip surgery History of knee surgery Family History Family History Mother Family history of malignant neoplasm Family history of lymphoma, Onset Age: 81 Sibling Family history of diabetes mellitus in first degree relative Father Family history of pancreatic cancer, Onset Age: 58 Other Arthritis Cerebrovascular accident Diabetes mellitus Family history of lung cancer High cholesterol Hypertension Social History Social History Smoking status: Never smoker Second hand tobacco smoke exposure: No Alcohol intake: former Substance use: never Substance use type: does not use Gender identity (if verbalized by the patient): Female Spiritual care concerns: No Meds Home Medications and Allergies Home Medications Medication Instructions Recorded Confirmed Type brimonidine 0.1 % eye drops 1 drop EACH EYE Q8H 05/14/19 08/23/21 History cholecalciferol (vitamin D3) 50 2,000 unit PO DAILY 05/14/19 08/23/21 History mcg (2,000 unit) tablet coenzyme Q10 100 mg capsule 100 mg PO DAILY 05/14/19 08/23/21 History ibuprofen 200 mg tablet 200 mg PO Q6H PRN 05/14/19 08/23/21 History mu
--- NOTE | 2021-08-24 14:15 | PM.IMPN ---
Progress Note: A&P Assessment and Plan (1) Bimalleolar ankle fracture: Qualifiers: Encounter type: initial encounter Fracture type: closed Laterality: left Qualified Code(s): S82.842A - Displaced bimalleolar fracture of left lower leg, initial encounter for closed fracture Code(s): S82.843A - Displaced bimalleolar fracture of unspecified lower leg, initial encounter for closed fracture Status: Acute (2) Bimalleolar avulsion fracture of left ankle: Code(s): S82.842A - Displaced bimalleolar fracture of left lower leg, initial encounter for closed fracture Status: Acute (3) Ankle fracture: Code(s): S82.899A - Other fracture of unspecified lower leg, initial encounter for closed fracture Status: Inactive (4) Phalanx, distal fracture of finger: Code(s): S62.639A - Displaced fracture of distal phalanx of unspecified finger, initial encounter for closed fracture Status: Inactive (5) Thoracic back pain: Code(s): M54.6 - Pain in thoracic spine Status: Acute (6) GERD (gastroesophageal reflux disease): Qualifiers: Esophagitis presence: without esophagitis Qualified Code(s): K21.9 - Gastro-esophageal reflux disease without esophagitis Code(s): K21.9 - Gastro-esophageal reflux disease without esophagitis Status: Acute (7) HTN (hypertension): Qualifiers: Hypertension type: essential hypertension Qualified Code(s): I10 - Essential (primary) hypertension Code(s): I10 - Essential (primary) hypertension Status: Acute Additional Plan admit to med surg VS per protocol pain control cont home meds NPO for surgery finger splint per ortho awaiting orthopedic surgery Seen by GI see recommendations for swallowing issues Subjective Date/time seen: 08/24/21 14:15 Interval history: 80-year-old female with glaucoma, GERD, osteoarthritis, hypertension, and diet-controlled high cholesterol is brought to the emergency room after falling from his stool where we she was sitting trying to trial any peer if she. Patient states that she fell down to her left side striking her 4th finger and her ankle. Pt seen by orthopedics going for surgery today Pt having swallowing issues seen by GI today see recommendations Review of Systems Review of Systems: All systems reviewed & are unremarkable except as noted in HPI and below Exam Const: General: cooperative and healthy appearing; No in distress Nutritional Appearance: overweight Orientation/consciousness: oriented to person HENMT: Head: normal to inspection Resp: Effort & Inspection: no respiratory distress Auscultation: no rhonchi and no wheezes Cardio: Rate: regular rate Rhythm: regular rhythm GI: Inspection: normal to inspection GI Palp: No abdominal tenderness, No Guarding due to palpation present (GI) and No Hepatomegaly present Auscultation: normal bowel sounds Neuro: General: oriented to person Extrem: General: normal exam except as noted Left lower extremity: ankle (wrapped in soft splint ); abnormal ROM Objective Data Vital Signs Vital Signs: Vital Signs - 24 hr 08/23/21 15:50 08/23/21 20:45 08/23/21 22:00 Temperature 37.4 C 36.6 C Pulse Rate 81 95 95 Respiratory Rate 20 18 18 Blood Pressure 162/91 H 135/72 Pulse Oximetry 99 95 95 08/24/21 05:27 08/24/21 10:35 Temperature 36.6 C Pulse Rate 96 96 Respiratory Rate 18 Blood Pressure 168/88 H Pulse Oximetry 93 Intake/Output Intake/Output: Intake & Output 08/21/21 08/22/21 08/23/21 08/24/21 23:59 23:59 23:59 23:59 Intake Total 50 100 Output Total 900 600 Balance -850 -500 Meds/Results Medications: Active Medications Generic Name Dose Route Start Last Admin Trade Name Freq PRN Reason Stop Dose Admin Acetaminophen 650 mg 08/23/21 02:05 Acetaminophen 325 Mg Tablet PO Q4H PRN Mild Pain (1-3) or Fever Hydrocodone Bitart/Acetaminophen 1 t
--- NOTE | 2021-08-24 14:24 | WPDANESEFPP ---
Anes - Eval Final PreProcedure Day of Procedure 08/24/21 14:24 Patient weight: overweight Heart: regular rate and rhythm Lungs: clear to auscultation Airway: Mallampati scale class II Neurological: alert and oriented Last oral intake: >/= 8 hours ASA classification: III Emergent: no Anesthetic plan: proceed Anesthesia type and monitoring: general LMA and standard monitoring Results Review: All pre-operative results and documents have been reviewed as part of the pre-operative evaluation. Informed Consent: The patient's anesthetic plan and its attendant risks and benefits were discussed with the patient/family/POA. Questions were solicited and answers provided to the satisfaction of the patient/family/POA.
[2021-08-24] MEDS: LACTATED RINGERS 1,000 ML 30 ML IV CONT (15:47)
--- NOTE | 2021-08-24 16:10 | W.PM.PROC2 ---
Procedure Note - Detailed Date of Procedure 08/24/21 Pre-op Diagnosis LEFT BIMALLEOLAR ANKLE FRACTURE Post-op Diagnosis Same Procedure Performed CLOSED REDUCTION LEFT ANKLE FRACTURE Surgeon Bridger Ernst MD Anesthesia General Description of Procedure THE PATIENT WAS TAKEN TO THE OPERATING ROOM IN STABLE CONDITION AND PLACED UNDER GENERAL ANESTHESIA. THE LEFT ANKLE SPLINT WAS REMOVED. THE SKIN WAS EXAMINED. THERE WAS EXTENSIVE ECCHYMOSIS ON BOTH THE MEDIAL AND LATERAL SIDES OF THE ANKLE AND SEVERE SWELLING. IT WAS CONCLUDED THAT THE ANKLE WAS NOT APPROPRIATE FOR ORIF DUE TO SOFT TISSUE SWELLING. THE ANKLE THEN WAS REDUCED AND PLACED IN A MANJINDER RYAN SPLINT. THE PATIENT'S GENERAL ANESTHESIA WAS REVERSED AND WAS SENT TO RECOVERY ROOM IN STABLE CONDITION Estimated Blood Loss 0 Complications No immediate complications Condition Stable Disposition PACU
[2021-08-24] MEDS: fentaNYL CITRATE INJ (*CRX) 100 MCG/2 ML VIAL 25 MCG IV PUSH ×4 (16:15→16:30)
[2021-08-24] MEDS: SENNA/DOCUSATE SODIUM TABLET 2 TAB PO (18:37)
[2021-08-24] MEDS: BRIMONIDINE TARTRATE 0.1% 5 ML OPHTH DROPS 1 DROP EACH EYE (22:33)
[2021-08-24] MEDS: HYDROcodone/acetaminophen (*CRX) 7.5-325 MG TABLET 1 TAB PO (22:37)
[2021-08-25] VITALS: BP 151/88; PULSE 83; RESP 18; TEMP 36.2; O2SAT 93
[2021-08-25 05:48] VITALS: BP 121/95; PULSE 70; RESP 18; TEMP 36.1; O2SAT 95
--- NOTE | 2021-08-25 07:49 | WPDGIPROGNO ---
Progress Note: A&P Assessment and Plan (1) Dysphagia: Code(s): R13.10 - Dysphagia, unspecified Status: Acute Assessment and Plan: Patient with chronic dysphagia. Will plan on elective outpatient EGD when her ankle fractures been healed. At the present time soft diet advised. Any large pills should be crushed or liquid for ID given. EGD should be deferred until her acute medical illness is stabilized. This can be performed electively as an outpatient. (2) Bimalleolar ankle fracture: Qualifiers: Encounter type: initial encounter Fracture type: closed Laterality: left Qualified Code(s): S82.842A - Displaced bimalleolar fracture of left lower leg, initial encounter for closed fracture Code(s): S82.843A - Displaced bimalleolar fracture of unspecified lower leg, initial encounter for closed fracture Status: Acute Subjective Date/time seen: 08/25/21 07:49 Patient alert comfortable this morning. Able to swallow most food without any difficulty. Her ankle has not yet been fixed. she does report some difficulty with large pills swallowing. This is a chronic condition. Review of Systems Review of Systems: All systems reviewed & are unremarkable except as noted in HPI and below Exam Narrative: Physical exam reveals patient to be alert. Vital signs stable. HEENT exam is unremarkable. Patient is anicteric. Lungs are clear. Heart without murmur. Abdomen soft nontender with no organomegaly. Extremities reveal left ankle in a bandage. Objective Data Vital Signs Vital Signs: Vital Signs - 24 hr 08/24/21 10:35 08/24/21 14:28 08/24/21 15:47 Temperature 98.0 F 97.2 F L Pulse Rate 96 78 85 Respiratory Rate 16 12 Blood Pressure 105/98 H 164/86 H Pulse Oximetry 98 100 08/24/21 16:00 08/24/21 16:15 08/24/21 16:30 Temperature Pulse Rate 87 85 87 Respiratory Rate 14 16 14 Blood Pressure 157/84 H 155/86 H 152/80 H Pulse Oximetry 98 98 94 08/24/21 16:46 08/24/21 17:02 08/24/21 17:19 Temperature Pulse Rate 87 90 96 Respiratory Rate 12 16 12 Blood Pressure 156/84 H 144/78 H 155/84 H Pulse Oximetry 95 100 100 08/24/21 19:16 08/24/21 20:00 08/25/21 00:00 Temperature 97.2 F L 97.2 F L Pulse Rate 95 95 83 Respiratory Rate 19 19 18 Blood Pressure 153/74 H 151/88 H Pulse Oximetry 92 92 93 08/25/21 05:48 Temperature 97.0 F L Pulse Rate 70 Respiratory Rate 18 Blood Pressure 121/95 H Pulse Oximetry 95 Intake/Output Intake/Output: Intake & Output 08/22/21 08/23/21 08/24/21 08/25/21 23:59 23:59 23:59 23:59 Intake Total 50 790 Output Total 900 1575 750 Balance -850 -785 -750 Meds/Results Medications: Active Medications Generic Name Dose Route Start Last Admin Trade Name Freq PRN Reason Stop Dose Admin Acetaminophen 650 mg 08/24/21 17:31 Acetaminophen 325 Mg Tablet PO Q6H PRN Pain Rated 1-3 Hydrocodone Bitart/Acetaminophen 1 tab 08/24/21 17:31 08/24/21 22:37 Hydrocodone/Acetaminophen (*Crx) 7.5-325 Mg Tablet PO 1 tab Q6H PRN Administration Pain Rated 4-6 Al Hydrox/Mg Hydrox/Simethicone 30 ml 08/23/21 02:05 Mag Hydrox/Al Hydrox/Simeth 30 Ml Udc PO QID PRN Dyspepsia Bisacodyl 10 mg 08/23/21 02:05 Bisacodyl 10 Mg Suppository RECTAL ONCE PRN Constipation Brimonidine Tartrate 1 drop 08/23/21 14:00 08/25/21 07:06 Brimonidine Tartrate 0.1% 5 Ml Ophth Drops EACH EYE Not Given Q8HR ALIICA Diazepam 5 mg 08/24/21 17:31 Diazepam (*Crx) 5 Mg Tablet PO Q8H PRN Muscle Spasm Docusate Sodium 100 mg 08/23/21 09:00 08/24/21 18:34 Docusate Sodium 100 Mg Capsule PO 100 mg BID ALICIA Administration Fentanyl Citrate 25 mcg 08/23/21 15:39 08/24/21 16:30 Fentanyl Citrate Inj (*Crx) 100 Mcg/2 Ml Vial IV PUSH 25 mcg Q2M PRN Administration Pain Hydralazine HCl 10 mg 08/23/21 13:52 Hydralazine Hcl 20 Mg/Ml Vial IV PUSH Q8H PRN
[2021-08-25 08:00] VITALS: PULSE 70; RESP 18; O2SAT 95
[2021-08-25] MEDS: CHOLECALCIFEROL 1,000 UNITS TABLET 2000 UNITS PO (09:38)
[2021-08-25] MEDS: lisinopriL 20 MG TABLET 40 MG PO (09:38)
[2021-08-25] MEDS: METOPROLOL TARTRATE 50 MG TAB PO (09:39)
[2021-08-25] MEDS: MULTIVITAMINS THERAPEUTIC TAB (*BKC) 1 TABLET PO (09:39)
[2021-08-25] MEDS: DOCUSATE SODIUM 100 MG CAPSULE PO (09:39)
[2021-08-25] MEDS: PYRIDOXINE HCL 50 MG TABLET 100 MG PO (09:39)
[2021-08-25] MEDS: SENNA/DOCUSATE SODIUM TABLET 2 TAB PO (09:40)
[2021-08-25] MEDS: polyethylene glycoL 3350 17 GM POWD.PACK PO (09:40)
--- NOTE | 2021-08-25 13:45 | PM.IMPN ---
Progress Note: A&P Assessment and Plan (1) Bimalleolar ankle fracture: Qualifiers: Encounter type: initial encounter Fracture type: closed Laterality: left Qualified Code(s): S82.842A - Displaced bimalleolar fracture of left lower leg, initial encounter for closed fracture Code(s): S82.843A - Displaced bimalleolar fracture of unspecified lower leg, initial encounter for closed fracture Status: Acute (2) Bimalleolar avulsion fracture of left ankle: Code(s): S82.842A - Displaced bimalleolar fracture of left lower leg, initial encounter for closed fracture Status: Acute (3) Ankle fracture: Code(s): S82.899A - Other fracture of unspecified lower leg, initial encounter for closed fracture Status: Inactive (4) Phalanx, distal fracture of finger: Code(s): S62.639A - Displaced fracture of distal phalanx of unspecified finger, initial encounter for closed fracture Status: Inactive (5) Thoracic back pain: Code(s): M54.6 - Pain in thoracic spine Status: Acute (6) GERD (gastroesophageal reflux disease): Qualifiers: Esophagitis presence: without esophagitis Qualified Code(s): K21.9 - Gastro-esophageal reflux disease without esophagitis Code(s): K21.9 - Gastro-esophageal reflux disease without esophagitis Status: Acute (7) HTN (hypertension): Qualifiers: Hypertension type: essential hypertension Qualified Code(s): I10 - Essential (primary) hypertension Code(s): I10 - Essential (primary) hypertension Status: Acute Additional Plan admit to med surg VS per protocol pain control cont home meds Unfortunately pt unable to have ORIF due to significant amount of swelling around ankle pt requesting to go to Rehab placement and then return for surgery cannot manage her a home Pt having swallowing issues seen by GI today, EGD can be done later Subjective Date/time seen: 08/25/21 13:45 Interval history: 80-year-old female with glaucoma, GERD, osteoarthritis, hypertension, and diet-controlled high cholesterol is brought to the emergency room after falling from his stool where we she was sitting trying to trial any peer if she. Patient states that she fell down to her left side striking her 4th finger and her ankle. Unfortunately pt unable to have ORIF due to significant amount of swelling around ankle pt requesting to go to Rehab placement and then return for surgery cannot manage her a home Pt having swallowing issues seen by GI today, EGD can be done later Review of Systems Review of Systems: All systems reviewed & are unremarkable except as noted in HPI and below Exam Const: General: cooperative, healthy appearing, comfortable and no acute distress; No in distress Nutritional Appearance: overweight Orientation/consciousness: oriented to person HENMT: Head: normal to inspection Resp: Effort & Inspection: normal respiratory effort and no respiratory distress Auscultation: clear to auscultation bilaterally, no rhonchi and no wheezes Cardio: Rate: regular rate Rhythm: regular rhythm GI: Inspection: normal to inspection and non-distended Auscultation: normal bowel sounds Urinary Catheter: Urinary Catheter: patent and draining and urine clear Skin: General skin exam: normal color and no rashes or lesions noted Neuro: General: oriented to person Cognition (Neuro): normal cognition Speech: normal speech Motor exam (neuro): 5/5 motor strength present throughout (LLE not evaluated ) Extrem: General: normal exam except as noted Left lower extremity: ankle (wrapped in soft splint ); abnormal ROM Psych: Mental Status: mental status grossly normal Affect: normal affect and No Anxious affect present Objective Data Vital Signs Vital Signs: Vital Signs - 24 hr 08/24/21 14:28 08/24/21 15:47 08/24/21 16:00 Temperature 36.7 C 36.2 C L Pulse Rate 78 85 87 Respiratory Rate 16 12 14
[2021-08-25] MEDS: BRIMONIDINE TARTRATE 0.1% 5 ML OPHTH DROPS 1 DROP EACH EYE (15:31)
[2021-08-25 20:00] VITALS: PULSE 92; RESP 18; O2SAT 99
[2021-08-25] MEDS: HYDROcodone/acetaminophen (*CRX) 7.5-325 MG TABLET 1 TAB PO (21:40)
[2021-08-25 22:00] VITALS: BP 134/90; PULSE 72; RESP 18; TEMP 37; O2SAT 94
[2021-08-26] MEDS: HYDROcodone/acetaminophen (*CRX) 7.5-325 MG TABLET 1 TAB PO ×3 (03:15→17:34)
[2021-08-26 06:00] VITALS: BP 137/65; PULSE 92; RESP 18; TEMP 36.2; O2SAT 99
[2021-08-26 08:00] VITALS: PULSE 92; RESP 18; O2SAT 99
[2021-08-26] MEDS: PYRIDOXINE HCL 50 MG TABLET 100 MG PO (09:17)
[2021-08-26] MEDS: SENNA/DOCUSATE SODIUM TABLET 2 TAB PO (09:17)
[2021-08-26] MEDS: MULTIVITAMINS THERAPEUTIC TAB (*BKC) 1 TABLET PO (09:18)
[2021-08-26] MEDS: DOCUSATE SODIUM 100 MG CAPSULE PO (09:18)
[2021-08-26] MEDS: METOPROLOL TARTRATE 50 MG TAB PO (09:18)
[2021-08-26] MEDS: CHOLECALCIFEROL 1,000 UNITS TABLET 2000 UNITS PO (09:18)
[2021-08-26] MEDS: lisinopriL 20 MG TABLET 40 MG PO (09:19)
[2021-08-26 11:01] LABS: EDCOVIDSCREEN Negative (Negative)
[2021-08-26 14:00] VITALS: BP 146/74; PULSE 77; RESP 16; TEMP 36.9; O2SAT 97
--- NOTE | 2021-08-26 15:04 | PM.DS ---
DS: Admitting Diagnosis Discharge Date August 26, 2021 Admitting Diagnosis Ankle fracture DS: Discharge Diagnosis Discharge Diagnosis (1) Bimalleolar avulsion fracture of left ankle: Code(s): S82.842A - Displaced bimalleolar fracture of left lower leg, initial encounter for closed fracture Status: Acute (2) Ankle fracture: Code(s): S82.899A - Other fracture of unspecified lower leg, initial encounter for closed fracture Status: Inactive Assessment and Plan: Unable to operate at this time secondary to swelling, being discharged to rehab with close outpatient management by Orthopedic surgery to determine when she can have her ORIF (3) Phalanx, distal fracture of finger: Code(s): S62.639A - Displaced fracture of distal phalanx of unspecified finger, initial encounter for closed fracture Status: Inactive Assessment and Plan: Finger splinting per Ortho (4) GERD (gastroesophageal reflux disease): Qualifiers: Esophagitis presence: without esophagitis Qualified Code(s): K21.9 - Gastro-esophageal reflux disease without esophagitis Code(s): K21.9 - Gastro-esophageal reflux disease without esophagitis Status: Acute (5) HTN (hypertension): Qualifiers: Hypertension type: essential hypertension Qualified Code(s): I10 - Essential (primary) hypertension Code(s): I10 - Essential (primary) hypertension Status: Acute (6) Dysphagia: Code(s): R13.10 - Dysphagia, unspecified Status: Acute Assessment and Plan: Consult placed to GI for chronic dysphagia with associated history of esophageal dilation and need for outpatient management DS: Summary Hospital Course Reason for hospitalization: Fall with ankle pain Hospital Course: 80-year-old female with past medical history significant for GERD, osteoarthritis, hypertension and diet-controlled hyperlipidemia is presenting to the ER after she fell off of a stool. She states she had her 4th finger in her ankle. She was unable to bear weight on her foot. In the ER, she was found to have a by malleolar fracture and a small avulsion fracture of the left 4th middle phalanges. Of note, she has chronic dysphagia and needs to find a carrier driver nearby so Dr. De Jesus was consulted for close outpatient management due to her history of requiring esophageal dilation. GI recommended an EGD done on outpatient basis after her ankle is corrected and stabilized. Orthopedic surgery took the patient to the OR on August 24 and it was found that the ankle was not appropriate for repair secondary to significant soft tissue swelling. Therefore, the ankle was reduced and placed in a Nathaniel Fernandez splint and they recommended discharge to rehab facility until swelling goes down and an ORIF can be done safely. Patient was discharged in good condition to rehab facility with close outpatient management by Gastroenterology Orthopedic surgery. Status at Discharge Functional status at discharge: uses cane/walker Overall status at discharge: patient is progressing back to baseline Time Spent with Patient Time attestation: Total time spent providing and/or coordinating discharge services: Time spent: Greater than 30 minutes Exam Const: General: no acute distress HENMT: Mouth: Yes moist mucous membranes Eyes: General: appearance normal, both eyes and all related structures Resp: Auscultation: clear to auscultation bilaterally Cardio: Rate: regular rate Rhythm: regular rhythm GI: Inspection: non-distended GI Palp: Yes Soft to palpation and No Tenderness to palpation present (GI) Skin: General skin exam: no rashes or lesions noted Extrem: Other: Splint in place to left lower extremity DS: Data Data Completed and Pending Labs on day of discharge: Labs from last 24 hours 08/26/21 10:32 SARS-CoV-2 IgG/IgM Ag?Rapid Negative Discharge Plan Discharge Attending physician on discharge: Syl
--- NOTE | 2021-08-26 16:17 | PC.NURSE ---
Attempt to call report to receiving facility x2. Nursing did not answer phone. Call back number given to facility.
== END 2021-08-26 18:30 | DRG 563 ==
PROVIDERS: Hospitalist; Orthopaedic Surgery; Admitting Provider Internal Medicine; PCP Family Medicine; Visit Provider Student in an Organized Health Care Education/Training Program
PROC: 0QSHXZZ Reposition Left Tibia, External Approach (ICD-10-PCS; principal; 2021-08-24 15:00)
DX: S82.842A Displaced bimalleolar fracture of left lower leg, initial encounter for closed fracture (principal); S62.625A Displaced fracture of middle phalanx of left ring finger, initial encounter for closed fracture; R13.10 Dysphagia, unspecified; W08.XXXA Fall from other furniture, initial encounter; Z20.822 Contact with and (suspected) exposure to COVID-19; E55.9 Vitamin D deficiency, unspecified; E78.00 Pure hypercholesterolemia, unspecified; H91.90 Unspecified hearing loss, unspecified ear; H40.9 Unspecified glaucoma; I10 Essential (primary) hypertension; K21.9 Gastro-esophageal reflux disease without esophagitis; M54.6 Pain in thoracic spine; M19.079 Primary osteoarthritis, unspecified ankle and foot
CPT/HCPCS: 36415; 73130; 73700; 80048; 83735; 85025; 87426; 97110; 97161; 97165; 97530; 97535; A9270; C9803; J1100; J2405; J2704; J3010; J7042; J7120

== ENCOUNTER 2021-09-06 12:10 | Inpatient (IN) | payer MEDICARE, OTHER, SELFPAY ==
[2021-09-02 09:04] VITALS: BMI 27.7
--- NOTE | 2021-09-02 09:33 | PC.NURSE ---
Report to the Outpatient Waiting Room, entrance under the green pavilion located off [facility], at time ___6:00AM____ on date __09/06/21 . OR Time: __7:30AM . - You and your visitor will be asked a series of questions to screen for COVID 19 for your protection. - Only one visitor is allowed at this time. - The patient visitor is requested to leave or wait in car when not with patient. - A mask is required within the hospital. Patients may have clear liquids (water, carbonated beverages, clear teas, apple juice) until 3 hours prior to surgery with a maximum of 20 ounces. - No food from midnight until time of surgery - Infants may have breast milk until 4 hours before surgery, formula 6 hours prior to surgery. - Children will be allowed to drink immediately following surgery. If applicable, please bring a bottle or sippy cup to assist with drinking. Juice, water, soda, and popsicles are readily available. For infants on formula, please bring formula the day of surgery. Pacifiers are allowed. Take the following medications with a SIP of water the morning of surgery: __METOPROLOL, EYE DROPS, HYDROCODONE NEEDED Medications to discontinue per physician HOLD ALL VITAMINS/SUPPLEMENTS 3 DAYS PRE-OP Date to take last dose 09/02/21 Please no make-up, nail kyrgyz, hairspray, perfume, deodorant, or body powder the day of surgery. No jewelry (including any body piercings) or valuables the day of surgery, leave them at home. Please take a shower or bath the night before, or the morning of, surgery with an antibacterial soap. Wear comfortable, loose fitting clothing. Children are encouraged to wear pajamas. - Jewelry must be removed prior to entering the operating room. Rings and piercings that are not removed may be cut off. - The hospital will not accept responsibility for valuables. - Please leave all valuables, including medications, at home the day of surgery. If you are going home after surgery, a licensed cdl truck driver must drive you home. - NO public transportation without another adult. - We recommend that an adult stay with you for 24 hours following discharge. - We also recommend that you do not drive, make important decision, drink alcoholic beverages, or take any drugs that were not prescribed by your health care provider for at least 24 hours after your discharge time. For Pediatric surgeries, we recommend two adults accompany the child home (only one inside the building at this time). Follow any additional instructions given to you from your surgeon. If you or anyone in your household have experienced Covid symptoms in the past week, please notify your surgeon or the nurse liaison at the phone number below for possible testing. Telephone instructions given to __PATIENT AND TERESA (SNF NURSE)__and asked if any additional questions and then verbalized understanding. Patient advised to call surgeon office or pre surgery nurse liaison [phone] if any additional questions.
--- NOTE | 2021-09-03 08:23 | PM.IMHP ---
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 Patient originally injured her ankle on 08/22. She lost balance falling at home. She went to the emergency room had x-rays done which showed a displaced bimalleolar ankle fracture. She had a subsequent CT scan done of the ankle which did show subtle impaction of the posterior lateral margin of the distal tibia as well. So this is a trimalleolar ankle fracture. She has had significant swelling and surgery has been delayed to allow the swelling to reduce enough so that it would be safe to proceed with surgery. She presents today for ORIF of the left ankle. Chief Complaint: Left ankle trimalleolar ankle fracture. Review of Systems Review of Systems: All systems reviewed & are unremarkable except as noted in HPI and below PMFSH Past Medical History Medical History Ankle arthritis Anosmia Arthritis Bleeding nose GERD (gastroesophageal reflux disease) Hearing loss High cholesterol Hoarseness HTN (hypertension) Vitamin D deficiency disease Wears glasses Surgical History Surgical History H/O: hysterectomy History of hip surgery History of knee surgery Family History Family History Mother Family history of malignant neoplasm Family history of lymphoma, Onset Age: 81 Sibling Family history of diabetes mellitus in first degree relative Father Family history of pancreatic cancer, Onset Age: 58 Other Arthritis Cerebrovascular accident Diabetes mellitus Family history of lung cancer High cholesterol Hypertension Social History Social History Smoking status: Never smoker Second hand tobacco smoke exposure: No Alcohol intake: never Substance use: never Substance use type: does not use Living arrangements: with family Additional living arrangements comments: NORMALLY LIVES WITH , IN RESIDENTIAL CURRENTLY Gender identity (if verbalized by the patient): Female Spiritual care concerns: No Meds Home Medications and Allergies Home Medications Medication Instructions Recorded Confirmed Type cholecalciferol (vitamin D3) 50 2,000 unit PO DAILY 05/14/19 09/02/21 History mcg (2,000 unit) tablet coenzyme Q10 100 mg capsule 100 mg PO DAILY 05/14/19 09/02/21 History ibuprofen 200 mg tablet 200 mg PO Q6H PRN 05/14/19 09/02/21 History multivitamin 1 tablet PO DAILY 05/14/19 09/02/21 History pyridoxine (vitamin B6) 100 mg 100 mg PO DAILY 03/02/21 09/02/21 History tablet quinapril 40 mg tablet 40 mg PO DAILY #90 tablet 03/08/21 09/02/21 Rx metoprolol tartrate 75 mg PO BID 08/23/21 09/02/21 History docusate sodium 100 mg PO BID #30 cap 08/26/21 09/02/21 Rx polyethylene glycol 3350 [Miralax] 17 g PO QAM #30 ea 08/26/21 09/02/21 Rx brimonidine 1 drp EACH EYE BID 09/02/21 09/02/21 History cyanocobalamin (vitamin B-12) 2,000 mcg PO DAILY 09/02/21 09/02/21 History ferrous sulfate 325 mg PO DAILY 09/02/21 09/02/21 History hydrocodone-acetaminophen 1 tablet PO Q4-6H PRN 09/02/21 09/02/21 History Allergies Allergy/AdvReac Type Severity Reaction Status Date / Time alendronate sodium AdvReac Intermediate upset Verified 09/02/21 08:53 [From Fosamax] stomach cephalexin AdvReac Unknown YEAST Verified 09/02/21 08:53 INFECTION meperidine AdvReac Unknown LOW BLOOD Verified 09/02/21 08:53 PRESSURE, N/V Exam Narrative: 80-year-old female alert pleasant. As a 5/ she had moderate swelling in the left ankle. No blistering noted. Prominent bruising noted. 2+ dorsalis pedis pulse palpable. She complains of no numbness or tingling in the foot. Resp: Auscultation: clear to auscu
[2021-09-06] VITALS (19 sets, daily range): BP systolic 129–171; BP diastolic 64–94; PULSE 66–91; RESP 12–18; TEMP 36.3–37; O2SAT 95–100
--- NOTE | ~2021-09-06 | XR_ITS ---
EXAMINATION: XR surgery orthopedic DATE: 09/06/2021 09:51 INDICATION: ORIF left ankle fracture. TECHNIQUE: 7 fluoroscopic images of the left ankle were obtained during procedure performed by Dr. Alfie lowry. Radiologist was not present for the imaging or procedure. The amount of fluoroscopy time used during this procedure was 1.3 minutes. COMPARISON: Left ankle radiographs dated 08/22/[address] dated 08/26/2021 FINDINGS: Interval open reduction internal fixation of the previously seen trimalleolar fracture of the left an kle. The lateral malleolar fractures fixed with lateral plate and screws and the medial malleolar fra ctures fixed with a pair of cannulated lag screws. The posterior malleolar fracture is unfixed. Align ment appears near-anatomic. No other fractures identified. Joint spaces appear relatively preserved. Expected small amount of postoperative intra-articular gas at the tibiotalar joint. IMPRESSION: 1. Near-anatomic alignment post internal fixation of a trimalleolar fracture at the left ankle. Reviewed, dictated and finalized at location B.
[2021-09-06] MEDS: LACTATED RINGERS 1,000 ML 30 ML IV CONT ×2 (06:35→10:20)
[2021-09-06] MEDS: KETOROLAC 15 MG/ML VIAL (*BKC) IV PUSH (06:42)
--- NOTE | 2021-09-06 06:51 | WPDANESEPPF ---
Anes - Initial Pre Proc Eval Procedure: Operation Date: 09/06/21 07:30 Proposed Procedures p Open Reduction Internal Fixation Left Ankle Trimalleolar Fracture - Antolin Milian MD Date/Time: 09/06/21 06:51 Surgeon: Antolin Milian MD Pre Op Diagnosis: Displaced Left Ankle Trimalleolar Fracture Patient Data Age: 80 Gender: F Height: 1.6 m Weight: 71 kg Allergies Allergy/AdvReac Type Severity Reaction Status Date / Time alendronate sodium AdvReac Intermediate upset Verified 09/02/21 08:53 [From Fosamax] stomach cephalexin AdvReac Unknown YEAST Verified 09/02/21 08:53 INFECTION meperidine AdvReac Unknown LOW BLOOD Verified 09/02/21 08:53 PRESSURE, N/V Home Medications Medication Instructions Recorded Confirmed Type cholecalciferol (vitamin D3) 50 2,000 unit PO DAILY 05/14/19 09/02/21 History mcg (2,000 unit) tablet coenzyme Q10 100 mg capsule 100 mg PO DAILY 05/14/19 09/02/21 History ibuprofen 200 mg tablet 200 mg PO Q6H PRN 05/14/19 09/02/21 History multivitamin 1 tablet PO DAILY 05/14/19 09/02/21 History pyridoxine (vitamin B6) 100 mg 100 mg PO DAILY 03/02/21 09/02/21 History tablet quinapril 40 mg tablet 40 mg PO DAILY #90 tablet 03/08/21 09/02/21 Rx metoprolol tartrate 75 mg PO BID 08/23/21 09/02/21 History docusate sodium 100 mg PO BID #30 cap 08/26/21 09/02/21 Rx polyethylene glycol 3350 [Miralax] 17 g PO QAM #30 ea 08/26/21 09/02/21 Rx brimonidine 1 drp EACH EYE BID 09/02/21 09/02/21 History cyanocobalamin (vitamin B-12) 2,000 mcg PO DAILY 09/02/21 09/02/21 History ferrous sulfate 325 mg PO DAILY 09/02/21 09/02/21 History hydrocodone-acetaminophen 1 tablet PO Q4-6H PRN 09/02/21 09/02/21 History Patient hx anesthesia problems: none Family hx anesthesia problems: none Results Review: All pre-operative results and documents have been reviewed as part of the pre-operative evaluation. [facility] Past Medical History Medical History Ankle arthritis Anosmia Arthritis Bleeding nose GERD (gastroesophageal reflux disease) Hearing loss High cholesterol Hoarseness HTN (hypertension) Vitamin D deficiency disease Wears glasses Surgical History Surgical History H/O: hysterectomy History of hip surgery History of knee surgery Family History Family History Mother Family history of malignant neoplasm Family history of lymphoma, Onset Age: 81 Sibling Family history of diabetes mellitus in first degree relative Father Family history of pancreatic cancer, Onset Age: 58 Other Arthritis Cerebrovascular accident Diabetes mellitus Family history of lung cancer High cholesterol Hypertension Social History Social History Smoking status: Never smoker Second hand tobacco smoke exposure: No Alcohol intake: never Substance use: never Substance use type: does not use Living arrangements: with family Additional living arrangements comments: NORMALLY LIVES WITH , IN LONG-TERM CURRENTLY Gender identity (if verbalized by the patient): Female Spiritual care concerns: No Anes - Eval Final PreProcedure Day of Procedure 09/06/21 06:51 Patient weight: overweight Heart: regular rate and rhythm Lungs: clear to auscultation Airway: Mallampati scale class II Neurological: alert and oriented Last oral intake: >/= 8 hours ASA classification: III Emergent: no Anesthetic plan: proceed Anesthesia type and monitoring: general LMA and standard monitoring Results Review: All pre-operative results and documents have been reviewed as part of the pre-operative evaluation. Informed Consent: The patient's anesthetic plan and its attendant risks and benefits were discussed with the patient/family/POA. Questions were solicited an
--- NOTE | 2021-09-06 07:01 | SUR.PREOP ---
HAIR REMOVAL AND SCRUB HELD, ESTRELLA WRAP REMAINS IN PLACE
--- NOTE | 2021-09-06 07:20 | WPDHPUPDATE1 ---
History and Physical Update Update Date/Time: 09/06/21 07:20 History and Physical has been reviewed, including an updated exam of the patient. Swelling is vastly improved. There is a 1.5 by 1 cm area of dark purple skin over the shelli medial portion of ankle with intact epithelium. Risks, benefits, and alternatives have been discussed and questions answered. Patient agrees to proceed with procedure.
--- NOTE | 2021-09-06 07:22 | SUR.PREOP ---
DR. BAPTISTE HERE TO SEE PT , PROCEEDING WITH SURGERY, HAIR REMOVAL AND SCRUB DONE.
[2021-09-06] MEDS: CLINDAMYCIN 900 MG/D5W 50 ML 900 MG/50 ML PIGGYBACK 50 MG IVPB (07:30)
[2021-09-06] MEDS: ceFAZolin 2 GM/D5W 50 ML 2 GM/50 ML BAG IVPB (07:52)
[2021-09-06] MEDS: ceFAZolin SODIUM 1 GM VIAL IRRIGATION (08:15)
[2021-09-06 08:27] LABS: Appearance Urine Cloudy (Clear); Bilirubin Urine Negative (Negative); Blood Urine 1+ (Negative); Glucose Urine UA Negative (Negative); Ketones Urine Negative (Negative); Leukocyte Esterase Ur 2+ LEU/UL (Negative); Nitrate Urine Positive (Negative); Protein Urine 1+ mg/dL (Negative); Specific Grav Ur 1.015 (1.001-1.035); Urobilinogen Urine 0.2 mg/dL (<2.0); pH Urine 7.5 (5.0-9.0)
[2021-09-06 08:29] LABS: Add Urine Microscopic? YES; Color Urine Light Yellow (Yellow)
[2021-09-06 08:34] LABS: Bacteria Urine Trace /hpf; Mucus Urine Rare /lpf; Squamous Epithelial Cell Urine Rare /hpf (Few); WBC Clumps Urine Present /HPF; WBC Urine 51-75 /hpf
--- NOTE | 2021-09-06 10:35 | W.PM.PROC2 ---
Procedure Note - Detailed Date of Procedure 09/06/21 Pre-op Diagnosis Displaced Left Ankle Trimalleolar Fracture Post-op Diagnosis Same Procedure Performed Open reduction internal fixation of left ankle trimalleolar fracture without fixation of posterior lip Surgeon Antolin Milian MD [employer] Anesthesia General Description of Procedure Patient was brought to the operating room and general anesthesia was administered. She received clindamycin and vancomycin preoperatively. The clindamycin was in error. She should have received Ancef 2 g and this was given before the tourniquet was elevated. The left leg was scrubbed with the chlorhexidine cloth. It was prepped with DuraPrep covered with Ioban. A 5 in longitudinal incision was made centered over the lateral malleolus fracture which was Dias B type. We knew from the CT scan that there was extensive comminution. The fracture was 16 days ago so there was some organized hematoma that was removed. The fracture was difficult to reduce despite appropriate exposure. We therefore approach the medial side through a 2 in longitudinal incision exposing the fracture and removing organized hematoma and achieving a reduction with a towel clip and stabilizing this with a single K-wire. There was some limited comminution posteriorly but the medial and anterior surfaces of the medial malleolus and corresponding tibial metaphysis were intact. We then reduced a large lateral lateral malleolus fragment to the shaft and this was stabilized by a X Braid suture. A clamp was left on the distal spike of the shaft fragment compressing the lateral malleolus to the spike. 1/3 tubular locking plate 7 holes was carefully contoured applied to the fracture. A cortical screw was placed and compression mode in the 3rd from most proximal hole allowing the compression of plate to bone to further reduce the lateral malleolus. We maintain length lateral malleolus with a towel clip on the distal fragment proximal to the very distal tip which was also a separate comminuted fragment and this aligned the mortise anatomically under fluoro and with tension on the lateral malleolus maintain to achieve proper length of the lateral malleolus construct, 2 locking screws were placed in the distal fragment. On release of traction from the towel clip, the fracture was noted to be stable. We placed 3 more locking screws 2 in the proximal 2 holes and 1 in the 4th from proximal pole leaving the remaining screw that was over the zone of marked comminution of the primary fracture without a screw. We had cortical contact anteriorly because of the cerclage suture but we had a notable defect posteriorly where there were numerous flakes of bone and the posterior soft tissues leaving a defect posteriorly and we planned to use AppLovin demineralized bone matrix 1 cc, paste. Placement of the DBM was deferred until the very end of the operation. We then approached the medial side again. The Arthrex set not have K-wires so we used the 4.0 cannulated Synthes screw set and placed 2 parallel K-wires perpendicular fracture after achieving anatomic reduction holding it with a bone clamp. The bone quality of the surface the medial malleolus was normal but the cancellous bone in the tibial metaphysis was extremely soft. We placed 250 mm longer threaded cannulated screws and fortunately both of these achieved fair purchase and excellent compression and anatomic alignment of the malleolus fracture was achieved. Final fluoroscopic images were obtained which showed the small posterior malleolus fracture fragment was lateral minimal displacement. Ankle alignment was anatomic. We had the tourniquet down at about 65 minutes while we were placing the last screws in the lateral malleolus and we did put up again when bleeding made visualization difficult for the medial malleolus and it was put down again I think total tourniquet time was approximately 80 minutes.
[2021-09-06] MEDS: fentaNYL CITRATE INJ (*CRX) 100 MCG/2 ML VIAL 25 MCG IV PUSH ×6 (10:37→11:32)
--- NOTE | 2021-09-06 12:33 | ADMGEN ---
This patient, Taylor Perez, was admitted to 2 Medical Room 257-01. Patient/family oriented to hospital policies and general routines including ID bracelet, bed and alarms, visiting hours, pain management, procedures, bathroom and other care routines, personal items, smoking policy, room service/diet, and visiting hours. Information on how to activate the Rapid Response Team has been discussed. Patient/Family are encouraged to report perceived risks to care and to ask questions if they do not understand what they are told or what they should do. Report received from GALILEA Kumar.
--- NOTE | 2021-09-06 13:05 | WPDCN ---
Assessment and Plan Assessment and plan (1) Displaced trimalleolar fracture of left ankle: Code(s): S82.852A - Displaced trimalleolar fracture of left lower leg, initial encounter for closed fracture Status: Acute Assessment and Plan: Postoperative day 0, status post ORIF trimalleolar fracture. Wound care, pain control, and DVT prophylaxis deferred to Dr. Milian. (2) Hypertension: Code(s): I10 - Essential (primary) hypertension Status: Acute Assessment and Plan: Blood pressures were reviewed and they are stable postoperatively. Continue antihypertensives and monitor daily. (3) Glaucoma: Code(s): H40.9 - Unspecified glaucoma Status: Acute Assessment and Plan: Continue eyedrops. (4) Urinary tract infection: Code(s): N39.0 - Urinary tract infection, site not specified Status: Acute Assessment and Plan: Likely due to Geronimo catheter that was in place while she was at rehab. Geronimo catheter has been removed. Empiric ceftriaxone, pending urine culture. Additional Plan Thank you for allowing us to participate in this patient's care. Please do not hesitate to contact us with any questions. Supervising physician for this medical consultation is Dr. Chintan Palomo. HPI Data of Consult Date/Time: 09/06/21 13:05 Requesting Physician: Antolin Milian MD Reason for consultation: Post-operative medical management. Primary Care Provider: Mora Canada MD Consult Narrative Narrative: This is a very pleasant 80-year-old female with hypertension who was admitted today by Dr. Milian for fixation of a trimalleolar fracture of the left ankle. She lost her balance and sustained a ground level fall on 08/22/2021 at which time imaging showed a displaced by malleolar fracture. A subsequent however confirmed a trimalleolar fracture. Due to significant swelling surgery has been delayed and she was brought in today for repair. Her surgery was performed under general anesthesia with no immediate complication documented an and estimated blood loss of 50 mL. At the time my evaluation she is resting comfortably and she has minimal discomfort. She has been up to the chair and to the bathroom with assistance and is doing well. On discharge she will likely go to a rehab facility before returning home in fact she has been at [facility] since her fracture she has been nonweightbearing. Today she reported suprapubic discomfort and her urinalysis is consistent with the UTI and apparently she has had a Geronimo catheter in since admission to [facility]. Currently she has no complaints and she specifically denies fever, chills, sweats, nausea, and vomiting. Review of Systems Review of Systems: Twelve systems were reviewed. No fever, chills, or sweats. No recent cold or flu symptoms. No sick contacts. No chest pain or shortness of breath. No history of venous thromboembolism. Except as documented, all other systems were reviewed and are negative. [facility] Past Medical History Medical History Arthritis Gastroesophageal reflux disease Glaucoma Hearing loss High cholesterol Hypertension Osteopenia Skin cancer Vitamin D deficiency disease Surgical History Surgical History History of abdominal supracervical subtotal hysterectomy (04/2014) History of benign breast biopsy History of bilateral salpingo-oophorectomy (04/2014) History of colonoscopy Internal hemorrhoids and diverticulosis. History of laparoscopic cholecystectomy (08/2016) History of meniscectomy of right knee (08/2012) History of open reduction and internal fixation (ORIF) procedure (09/06/21) Displaced left ankle trimalleolar fracture. History of repair of hip fracture (09/2008) Internal fixation with gamma nail of a left intertroc
[2021-09-06] MEDS: oxyCODONE HCL (*CRX) 2.5 MG TAB IR PO ×3 (13:11→21:04)
[2021-09-06] MEDS: GENTAMICIN SULFATE INJ 120 MG in DEXTROSE 5% 100 ML 100 MG IVPB (13:11)
[2021-09-06] MEDS: BRIMONIDINE TARTRATE 0.2% OP SOLN 5 ML BTL 1 DROP EACH EYE (16:18)
[2021-09-06] MEDS: SENNA/DOCUSATE SODIUM TABLET 2 TAB PO (16:18)
[2021-09-06] MEDS: ACETAMINOPHEN 500 MG TABLET 1000 MG PO (17:05)
[2021-09-06] MEDS: METOPROLOL TARTRATE 25 MG TABLET 75 MG PO (21:04)
[2021-09-06] MEDS: FAMOTIDINE 20 MG TABLET PO (21:04)
[2021-09-07] VITALS (9 sets, daily range): BP systolic 102–160; BP diastolic 51–82; PULSE 70–86; RESP 16–18; TEMP 36.2–36.9; O2SAT 93–97
[2021-09-07 06:04] LABS: Anion Gap 4 mmol/L (8-16); Blood Urea Nitrogen 15 mg/dL (7-17); Calcium 8.3 mg/dL (8.4-10.2); Carbon Dioxide 29 mmol/L (22-30); Chloride 107 mmol/L (98-107); Estimated CRCL calculation 51 ml/min; Estimated Glomerular Filt Rate > 60; Glucose 95 mg/dL (65-110); Potassium 3.8 mmol/L (3.4-5.0); Sodium 140 mmol/L (137-145)
[2021-09-07 06:11] LABS: Basophils Percent Auto 0.6 % (0.2-1.2); Eosinophils Absolute Auto 0.1 K/mm3 (0-0.3); Eosinophils Percent Auto 1.2 % (0-4.4); Hematocrit 30.2 % (37.0-47.0); Hemoglobin 10.2 g/dL (12.0-15.0); Immature Granulocyte Absolute 0.02 K/mm3 (0.00-0.031); Immature Granulocyte Percent A 0.3 % (0-0.5); Lymphocytes Absolute Auto 1.82 K/mm3 (0.9-3.2); Lymphocytes Percent Auto 27.7 % (18.3-44.2); Mean Corpuscular HGB Conc 33.8 g/dl (32-36); Mean Corpuscular Volume 100.7 fl (80-100); Mean Platelet Volume 9.2 fl (7.4-10.4); Monocytes Absolute Auto 0.7 K/mm3 (0.1-0.6); Monocytes Percent Auto 10.8 % (2.6-8.5); Neutrophils Absolute Auto 3.9 K/mm3 (1.3-6.7); Neutrophils Percent Auto 59.4 % (45.5-73.1); Platelet Count Result 268 k/mm3 (150-375); Red Cell Distribution Width 12.3 % (11.5-14.5); White Blood Count 6.6 K/mm3 (4.5-10.0)
--- NOTE | 2021-09-07 06:30 | PM.PNORT ---
Subjective Subjective Date/Time Seen: 09/07/21 06:30 POD 1 alert avss, NVI pain is well controlled, pt will work with PT today , pt wants to discuss options for rehab. Pt urine cx is pending, will start bactrim till cx are done Objective Data Vital Signs Vital Signs: Vital Signs - 24 hr 09/06/21 10:25 09/06/21 10:40 09/06/21 10:55 Temperature 36.8 C Pulse Rate 79 76 91 Respiratory Rate 16 15 16 Blood Pressure 139/83 143/82 H 130/83 Pulse Oximetry 99 100 95 Oxygen Delivery Simple Face Mask Simple Face Mask Simple Face Mask Oxygen Flow Rate 8 8 8 09/06/21 11:10 09/06/21 11:25 09/06/21 11:40 Temperature Pulse Rate 77 88 78 Respiratory Rate 18 18 13 Blood Pressure 141/94 H 140/67 129/70 Pulse Oximetry 99 95 100 Oxygen Delivery Room Air Nasal Cannula Nasal Cannula Oxygen Flow Rate 2 2 09/06/21 11:55 09/06/21 12:20 09/06/21 12:35 Temperature 36.3 C L 36.8 C Pulse Rate 83 80 85 Respiratory Rate 12 16 16 Blood Pressure 145/66 H 147/76 H 133/74 Pulse Oximetry 99 100 99 Oxygen Delivery Nasal Cannula Oxygen Flow Rate 2 09/06/21 13:00 09/06/21 14:20 09/06/21 14:25 Temperature 36.6 C Pulse Rate 83 Respiratory Rate 16 Blood Pressure 144/75 H Pulse Oximetry 98 Oxygen Delivery Room Air Room Air Oxygen Flow Rate 09/06/21 14:00 09/06/21 12:30 09/06/21 12:50 Temperature 36.4 C Pulse Rate 85 Respiratory Rate 18 Blood Pressure 135/71 Pulse Oximetry 97 100 97 Oxygen Delivery Nasal Cannula Room Air Oxygen Flow Rate 2 09/06/21 18:33 09/06/21 20:04 09/06/21 21:04 Temperature 37.0 C Pulse Rate 91 86 83 Respiratory Rate 18 Blood Pressure 134/64 Pulse Oximetry 99 98 Oxygen Delivery Room Air Oxygen Flow Rate 09/06/21 21:52 09/06/21 20:00 09/07/21 01:48 Temperature 36.3 C L 36.8 C Pulse Rate 83 83 80 Respiratory Rate 18 18 18 Blood Pressure 135/64 160/81 H Pulse Oximetry 96 96 97 Oxygen Delivery Room Air Oxygen Flow Rate 09/07/21 05:55 Temperature 36.9 C Pulse Rate 73 Respiratory Rate 18 Blood Pressure 134/70 Pulse Oximetry 94 Oxygen Delivery Oxygen Flow Rate Intake/Output Intake/Output: Intake & Output 09/04/21 09/05/21 09/06/21 09/07/21 23:59 23:59 23:59 23:59 Intake Total 3030 400 Output Total 300 Balance 2730 400 Meds/Results Medications: Active Medications Generic Name Dose Route Start Last Admin Trade Name Freq PRN Reason Stop Dose Admin Acetaminophen 1,000 mg 09/06/21 18:00 09/07/21 00:00 Acetaminophen 500 Mg Tablet PO 1,000 mg Q6HR ALICIA Administration Apixaban 2.5 mg 09/07/21 09:00 Apixaban 2.5 Mg Tablet PO 10/11/21 21:01 Q12HR ALICIA Brimonidine Tartrate 1 drop 09/06/21 17:00 09/06/21 16:18 Brimonidine Tartrate 0.2% Op Soln 5 Ml Btl EACH EYE 1 drop BID ALICIA Administration Calcium Citrate 1 tablet 09/06/21 17:00 09/06/21 16:18 Calcium Citrate 315 Mg/Vitamin D 250 Units Tab PO 1 tablet BID ALICIA Administration Famotidine 20 mg 09/06/21 21:00 09/06/21 21:04 Famotidine 20 Mg Tablet PO 20 mg Q12HR ALICIA Administration Hydroxyzine Pamoate 50 mg 09/06/21 12:10 Hydroxyzine Pamoate 25 Mg Capsule PO Q4H PRN Itching Vancomycin HCl 1,000 mg in 250 mls @ 250 mls/hr 09/06/21 19:00 09/06/21 19:43 Vancomycin 1,000 Mg/D5w 250 Ml IVPB 09/07/21 07:59 Infused Q12H ALICIA Infusion Cefazolin Sodium 1 gm in 50 mls @ 100 mls/hr 09/06/21 16:00 09/07/21 00:29 Ancef 1 Gm/D5w 50 Ml Pm IVPB 09/07/21 08:29 Infused Q8H ALICIA Infusion Ceftriaxone Sodium/Dextrose 1 gm in 50 mls @ 100 mls/hr 09/07/21 01:00 09/07/21 00:54 Rocephin 1 Gm/D5w 50 Ml IVPB 100 mls/hr Q24H ALICIA Administration Lisinopril 40 mg 09/07/21 09:00 Lisinopril 20 Mg Tablet PO DAILY ALICIA Metoprolol Tartrate 75 mg 09/06/21 21:00 09/06/21 21:04 Metoprolol Tartrate 25 Mg Tablet PO 75 mg Q12HR ALICIA Administration Naloxone HCl 0.1 mg 09/06/21 12:1
[2021-09-07] MEDS: oxyCODONE HCL (*CRX) 2.5 MG TAB IR PO ×6 (06:35→20:47)
[2021-09-07] MEDS: ACETAMINOPHEN 500 MG TABLET 1000 MG PO ×4 (06:35→17:50)
[2021-09-07] MEDS: BRIMONIDINE TARTRATE 0.2% OP SOLN 5 ML BTL 1 DROP EACH EYE ×2 (09:20→17:53)
[2021-09-07] MEDS: polyethylene glycoL 3350 17 GM POWD.PACK PO (09:20)
[2021-09-07] MEDS: METOPROLOL TARTRATE 25 MG TABLET 75 MG PO ×2 (09:21→20:48)
[2021-09-07] MEDS: APIXABAN 2.5 MG TABLET PO ×2 (09:21→20:48)
[2021-09-07] MEDS: lisinopriL 20 MG TABLET 40 MG PO (09:21)
[2021-09-07] MEDS: SENNA/DOCUSATE SODIUM TABLET 2 TAB PO ×2 (09:21→17:50)
[2021-09-07] MEDS: hydrOXYzine pamoate 25 MG CAPSULE 50 MG PO (09:22)
[2021-09-07] MEDS: CHOLECALCIFEROL 1,000 UNITS TABLET 2000 UNITS PO (09:22)
[2021-09-07] MEDS: FAMOTIDINE 20 MG TABLET PO ×2 (09:22→20:48)
--- NOTE | 2021-09-07 09:42 | PM.IMPN ---
Progress Note: A&P Assessment and Plan (1) Displaced trimalleolar fracture of left ankle: Code(s): S82.852A - Displaced trimalleolar fracture of left lower leg, initial encounter for closed fracture Status: Acute Assessment and Plan: Postoperative day 1, status post ORIF trimalleolar fracture. Wound care, pain control, and DVT prophylaxis deferred to Dr. Milian. (2) Hypertension: Code(s): I10 - Essential (primary) hypertension Status: Acute Assessment and Plan: Blood pressures were reviewed and they are stable postoperatively. Continue antihypertensives and monitor daily. (3) Glaucoma: Code(s): H40.9 - Unspecified glaucoma Status: Acute Assessment and Plan: Continue eyedrops. (4) Urinary tract infection: Code(s): N39.0 - Urinary tract infection, site not specified Status: Acute Assessment and Plan: Likely due to Geronimo catheter that was in place while she was at rehab. Geronimo catheter has been removed. Patient is currently on IV antibiotics will transition to oral antibiotics this evening. Pending urine cultures Obtain a post residual void bladder scan Subjective Date/time seen: 09/07/21 09:42 Interval history: Patient is alert and oriented x4. She is sitting up in the chair performed occupational therapy needs. Patient denies any acute pain however she does complain of emptying her bladder. Will obtain an bladder scan post residual voids. Patient has been on iv antibioticx3 will transition to cefdinir this evening. Patient denies any acute dysphagia. She was on room air. No acute events reported by RN during the night. Patient did report that she lives with her significant other and has difficulty mobilizing. Case Management on board for home health needs. Review of Systems Review of Systems: All systems reviewed & are unremarkable except as noted in HPI and below Exam Narrative: General: Well-developed female appearing younger than her stated age. Weight: 60.9 kg. BMI: 26.9. HEENT: PERRL, EOMI. Sclerae anicteric. Oral mucosa moist. Oropharynx clear. Neck: Supple. Respiratory: Lungs are clear to auscultation bilaterally. Cardiovascular: Regular rate and rhythm with S1-S2. Gastrointestinal: Abdomen is soft, nontender, and nondistended with positive bowel sounds. Skin: Warm and dry. No rash or lesions on limited exam. Extremities: No cyanosis, clubbing, or edema. Radial and pedal pulses intact. Musculoskeletal: Left lower leg is casted. Sensation intact in the toes distal to the surgical site. Neurological: Alert. Cranial nerves 2-12 grossly intact. No gross focal deficits to casual conversation. Psychiatric: Pleasant and cooperative with normal mood and affect. Judgment and insight intact. Objective Data Vital Signs Vital Signs: Vital Signs - 24 hr 09/06/21 10:25 09/06/21 10:40 09/06/21 10:55 Temperature 98.3 F Pulse Rate 79 76 91 Respiratory Rate 16 15 16 Blood Pressure 139/83 143/82 H 130/83 Pulse Oximetry 99 100 95 Oxygen Delivery Simple Face Mask Simple Face Mask Simple Face Mask Oxygen Flow Rate 8 8 8 09/06/21 11:10 09/06/21 11:25 09/06/21 11:40 Temperature Pulse Rate 77 88 78 Respiratory Rate 18 18 13 Blood Pressure 141/94 H 140/67 129/70 Pulse Oximetry 99 95 100 Oxygen Delivery Room Air Nasal Cannula Nasal Cannula Oxygen Flow Rate 2 2 09/06/21 11:55 09/06/21 12:20 09/06/21 12:35 Temperature 97.3 F L 98.3 F Pulse Rate 83 80 85 Respiratory Rate 12 16 16 Blood Pressure 145/66 H 147/76 H 133/74 Pulse Oximetry 99 100 99 Oxygen Delivery Nasal Cannula Oxygen Flow Rate 2 09/06/21 13:00 09/06/21 14:20 09/06/21 14:25 Temperature 97.8 F Pulse Rate 83 Respiratory Rate 16 Blood Pressure 144/75 H Pulse Oximetry 98 Oxygen Delivery Room Air Room Air Oxygen Flow Rate 09/06/21 14:00 09/06/21 12:30 09/06/21 12:50 Temperature 97.6 F Pulse Rate 85
[2021-09-07] MEDS: CEFDINIR 300 MG CAPSULE PO (20:48)
[2021-09-08] VITALS (7 sets, daily range): BP systolic 115–141; BP diastolic 62–75; PULSE 69–90; RESP 14–18; TEMP 36.4–36.8; O2SAT 92–97
[2021-09-08] MEDS: oxyCODONE HCL (*CRX) 2.5 MG TAB IR PO ×7 (00:04→21:56)
[2021-09-08] MEDS: ACETAMINOPHEN 500 MG TABLET 1000 MG PO ×4 (00:04→18:19)
[2021-09-08 05:54] LABS: Basophils Percent Auto 0.5 % (0.2-1.2); Eosinophils Absolute Auto 0.2 K/mm3 (0-0.3); Eosinophils Percent Auto 3.6 % (0-4.4); Hematocrit 31.4 % (37.0-47.0); Hemoglobin 10.3 g/dL (12.0-15.0); Immature Granulocyte Absolute 0.02 K/mm3 (0.00-0.031); Immature Granulocyte Percent A 0.3 % (0-0.5); Lymphocytes Absolute Auto 2.03 K/mm3 (0.9-3.2); Lymphocytes Percent Auto 33.6 % (18.3-44.2); Mean Corpuscular HGB Conc 32.8 g/dl (32-36); Mean Corpuscular Hemoglobin 33.8 pg (26-34); Mean Platelet Volume 8.9 fl (7.4-10.4); Monocytes Absolute Auto 0.7 K/mm3 (0.1-0.6); Monocytes Percent Auto 10.9 % (2.6-8.5); Neutrophils Absolute Auto 3.1 K/mm3 (1.3-6.7); Neutrophils Percent Auto 51.1 % (45.5-73.1); Platelet Count Result 267 k/mm3 (150-375); Red Blood Count 3.05 M/mm3 (4.2-5.4); Red Cell Distribution Width 12.6 % (11.5-14.5); White Blood Count 6.1 K/mm3 (4.5-10.0)
[2021-09-08 06:09] LABS: Alanine Aminotransferase 43 U/L (6-35); Albumin Level 3.3 g/dL (3.5-5.1); Alkaline Phosphatase 89 U/L (38-126); Anion Gap 2 mmol/L (8-16); Aspartate Amino Transferase 46 U/L (14-36); Bilirubin,Total 0.5 mg/dL (0.2-1.3); Blood Urea Nitrogen 13 mg/dL (7-17); Calcium 8.5 mg/dL (8.4-10.2); Carbon Dioxide 28 mmol/L (22-30); Chloride 105 mmol/L (98-107); Estimated CRCL calculation 51 ml/min; Estimated Glomerular Filt Rate > 60; Glucose 92 mg/dL (65-110); Potassium 3.7 mmol/L (3.4-5.0); Sodium 135 mmol/L (137-145)
[2021-09-08] MEDS: CEFDINIR 300 MG CAPSULE PO ×2 (07:57→21:56)
[2021-09-08] MEDS: SENNA/DOCUSATE SODIUM TABLET 2 TAB PO (07:57)
[2021-09-08] MEDS: BRIMONIDINE TARTRATE 0.2% OP SOLN 5 ML BTL 1 DROP EACH EYE ×2 (07:58→16:20)
[2021-09-08] MEDS: CHOLECALCIFEROL 1,000 UNITS TABLET 2000 UNITS PO (07:58)
[2021-09-08] MEDS: lisinopriL 20 MG TABLET 40 MG PO (07:58)
[2021-09-08] MEDS: METOPROLOL TARTRATE 25 MG TABLET 75 MG PO ×2 (07:58→21:56)
[2021-09-08] MEDS: FAMOTIDINE 20 MG TABLET PO ×2 (07:58→21:56)
[2021-09-08] MEDS: APIXABAN 2.5 MG TABLET PO ×2 (07:59→21:56)
--- NOTE | 2021-09-08 09:41 | PM.IMPN ---
Progress Note: A&P Assessment and Plan (1) Displaced trimalleolar fracture of left ankle: Code(s): S82.852A - Displaced trimalleolar fracture of left lower leg, initial encounter for closed fracture <Meghana Kinza Horn PA-C - Last Filed: 09/08/21 09:50> Status: Acute <Meghana JMatthieu Stimac, PA-C - Last Filed: 09/08/21 09:50> Assessment and Plan: Postoperative day 2, status post ORIF trimalleolar fracture. Tolerated procedure well. Pain is well controlled. Wound care, pain control, and DVT prophylaxis deferred to Dr. Milian. Continue PT/OT <Meghana J. Stimac, PA-C - Last Filed: 09/08/21 09:50> (2) Hypertension: Code(s): I10 - Essential (primary) hypertension <Meghana JMatthieu Billingsac, PA-C - Last Filed: 09/08/21 09:50> Status: Acute <Meghana J. Stimac, PA-C - Last Filed: 09/08/21 09:50> Assessment and Plan: Blood pressures were reviewed and have remained stable. Last BP 124/62 Continue antihypertensives and monitor daily. <Meghana J. Stimac, PA-C - Last Filed: 09/08/21 09:50> (3) Glaucoma: Code(s): H40.9 - Unspecified glaucoma <Meghana J. Manuelitoac, PA-C - Last Filed: 09/08/21 09:50> Status: Acute <Meghana J. Stimac, PA-C - Last Filed: 09/08/21 09:50> Assessment and Plan: No acute issues Continue eyedrops. <Meghana J. Stimac, PA-C - Last Filed: 09/08/21 09:50> (4) Urinary tract infection: Code(s): N39.0 - Urinary tract infection, site not specified <Meghana J. Stimac, PA-C - Last Filed: 09/08/21 09:50> Status: Acute <Meghana J. Stimac, PA-C - Last Filed: 09/08/21 09:50> Assessment and Plan: Likely due to Geronimo catheter that was in place while she was at rehab. Geronimo catheter removed Urine culture with growth of Gram-negative bacilli, final cultures pending Continue with p.o. cefdinir while awaiting final culture and susceptibility report. Tailor antibiotics accordingly <Meghana Horn PA-C - Last Filed: 09/08/21 09:50> Subjective Date/time seen: 09/08/21 09:41 Taylor Perez is an 80-year-old female with a history hypertension, hyperlipidemia, osteopenia who is seen in follow-up for left ankle fracture s/p ORIF on 09/06/2021. She is doing well today. States her ankle pain is 0/10. She is tolerating therapy. She was able to get up and use the bedside commode today. She did some exercises on the side of the bed was able to transfer to the chair. She reports a good appetite. She denies shortness breath, cough, chest pain. She had a regular bowel movement yesterday. Denies dysuria, hematuria, urgency, or frequency. No nausea or vomiting. <Meghana Horn PA-C - Last Filed: 09/08/21 09:50> Review of Systems Review of Systems: All systems reviewed & are unremarkable except as noted in HPI and below <MARTINEZ Hillman Last Filed: 09/08/21 09:50> Exam Narrative: General: Well-nourished, well-appearing 80-year-old female, sitting up in bed, comfortable, NARD Neuro: awake, alert and oriented x4, speech clear, no focal neuro deficits noted HEENMT: normocephalic, atraumatic, EOMI, sclerae anicteric, moist oral mucosa Respiratory: clear to auscultation bilaterally, nonlabored breathing Cardio: regular rate, regular rhythm with S1-S2 Abdomen: nondistended, normoactive bowel sounds, soft, nontender to palpation Extremities: Left ankle wrapped in splint, able to wiggle left toes, brisk capillary refill, sensation intact, RLE without edema, erythema, or tenderness to palpation, right DP pulse 2+ Skin: no rashes or lesions, warm and dry Psych: appropriate mood and affect, judgment and insight intact <MARTINEZ Hillman Last Filed: 09/08/21 09:50> Objective Data Vital Signs Vital Signs: Vital Signs - 24 hr 09/07/21 09:55 09/07/21 13:55 09/07/21 18:00 Temperature 97.1 F L 98.4 F 97.6 F Pulse Rate 74 70 86 Respiratory Rate 16 18 18 Blood Pressure 138/
--- NOTE | 2021-09-08 12:35 | PCOTNOTE ---
Attempted to see patient for OT, patient lying in bed and reports just getting into bed. Patient declined ADLs at this time - I'd like to rest...I'm tired. Patient not seen for OT. Will continue plan of care tomorrow.
--- NOTE | 2021-09-08 16:49 | PM.PNORT ---
Progress Note: A&P Assessment and Plan (1) Displaced trimalleolar fracture of left ankle: Code(s): S82.852A - Displaced trimalleolar fracture of left lower leg, initial encounter for closed fracture Status: Acute Plan Patient is now postop day 2. After open reduction internal fixation of trimalleolar left ankle fracture. Her urine from the catheter is growing greater than 100,000 CFU of g negative bacillus. Identification and susceptibilities should be available tomorrow. They are not available yet today. She is taking Cefdiner as prescribed by the hospitalist service until we know the susceptibilities. She is asymptomatic with respect to this. Her left ankle is doing well. She has it properly elevated and she is quite comfortable she has no pain she has intact sensation the foot and wiggles her toes. She is on Eliquis for DVT prophylaxis. She is more alert today. It seems yesterday when I saw her she had just a little bit of confusion. She discussed that she is waiting for rehab facility placement arrangements to be made and that her family will be here tomorrow and participate in the decision-making process as to which facility she will go to. From my standpoint she can be discharged when acceptance to rehab facility has been squared away. the manager medicare is currently working on this. Subjective Subjective Date/Time Seen: 09/08/21 16:49 Objective Data Vital Signs Vital Signs: Vital Signs - 24 hr 09/07/21 18:00 09/07/21 20:48 09/07/21 20:00 Temperature 36.4 C Pulse Rate 86 71 71 Respiratory Rate 18 18 Blood Pressure 119/81 Pulse Oximetry 96 96 Oxygen Delivery Room Air 09/07/21 22:24 09/08/21 01:56 09/08/21 05:44 Temperature 36.6 C 36.6 C 36.4 C L Pulse Rate 71 71 69 Respiratory Rate 16 18 16 Blood Pressure 102/51 L 141/75 H 124/62 Pulse Oximetry 93 97 94 Oxygen Delivery 09/08/21 07:58 09/08/21 08:00 09/08/21 14:00 Temperature 36.4 C L Pulse Rate 70 70 75 Respiratory Rate 16 16 Blood Pressure 115/73 Pulse Oximetry 94 92 Oxygen Delivery Room Air Intake/Output Intake/Output: Intake & Output 05/22/22 05/23/22 05/24/22 05/25/22 23:59 23:59 23:59 23:59 Intake Total 3030 1989 940 Output Total 300 Balance 2730 1989 940 Meds/Results Medications: Active Medications Generic Name Dose Route Start Last Admin Trade Name Freq PRN Reason Stop Dose Admin Acetaminophen 1,000 mg 09/06/21 18:00 09/08/21 12:03 Acetaminophen 500 Mg Tablet PO 1,000 mg Q6HR ALICIA Administration Apixaban 2.5 mg 09/07/21 09:00 09/08/21 07:59 Apixaban 2.5 Mg Tablet PO 10/11/21 21:01 2.5 mg Q12HR ALICIA Administration Brimonidine Tartrate 1 drop 09/06/21 17:00 09/08/21 16:20 Brimonidine Tartrate 0.2% Op Soln 5 Ml Btl EACH EYE 1 drop BID ALICIA Administration Calcium Citrate 1 tablet 09/06/21 17:00 09/08/21 16:20 Calcium Citrate 315 Mg/Vitamin D 250 Units Tab PO 1 tablet BID ALICIA Administration Cefdinir 300 mg 09/07/21 21:00 09/08/21 07:57 Cefdinir 300 Mg Capsule PO 300 mg Q12HR ALICIA Administration Famotidine 20 mg 09/06/21 21:00 09/08/21 07:58 Famotidine 20 Mg Tablet PO 20 mg Q12HR ALICIA Administration Hydroxyzine Pamoate 50 mg 09/06/21 12:10 09/07/21 09:22 Hydroxyzine Pamoate 25 Mg Capsule PO 50 mg Q4H PRN Administration Itching Lisinopril 40 mg 09/07/21 09:00 09/08/21 07:58 Lisinopril 20 Mg Tablet PO 40 mg DAILY ALICIA Administration Metoprolol Tartrate 75 mg 09/06/21 21:00 09/08/21 07:58 Metoprolol Tartrate 25 Mg Tablet PO 75 mg Q12HR ALICIA Administration Naloxone HCl 0.1 mg 09/06/21 12:10 Naloxone Hcl 0.4 Mg/Ml Vial IV PUSH Q2M PRN Opiate Reversal Ondansetron HCl 4 mg 09/06/21 12:10 Ondansetron Inj 4 Mg/2 Ml Vial IV PUSH Q4H PRN Nausea And Vomiting Oxycodone HCl 2.5 mg 09/06/21 12:10 Oxycodone Hcl (*Crx) 2.5 Mg Tab Ir PO Q4H MA
[2021-09-09] MEDS: ACETAMINOPHEN 500 MG TABLET 1000 MG PO ×4 (01:55→17:36)
[2021-09-09] MEDS: oxyCODONE HCL (*CRX) 2.5 MG TAB IR PO ×5 (01:56→16:46)
[2021-09-09 02:01] VITALS: BP 142/56; PULSE 74; RESP 16; TEMP 36.8; O2SAT 99
[2021-09-09 05:34] LABS: Basophils Percent Auto 0.5 % (0.2-1.2); Eosinophils Absolute Auto 0.2 K/mm3 (0-0.3); Hematocrit 31.4 % (37.0-47.0); Immature Granulocyte Absolute 0.02 K/mm3 (0.00-0.031); Immature Granulocyte Percent A 0.3 % (0-0.5); Lymphocytes Absolute Auto 1.95 K/mm3 (0.9-3.2); Mean Corpuscular HGB Conc 31.8 g/dl (32-36); Mean Corpuscular Hemoglobin 33.3 pg (26-34); Mean Corpuscular Volume 104.7 fl (80-100); Mean Platelet Volume 9.2 fl (7.4-10.4); Monocytes Absolute Auto 0.6 K/mm3 (0.1-0.6); Monocytes Percent Auto 10.7 % (2.6-8.5); Neutrophils Absolute Auto 3.1 K/mm3 (1.3-6.7); Neutrophils Percent Auto 52.5 % (45.5-73.1); Platelet Count Result 296 k/mm3 (150-375); Red Cell Distribution Width 12.6 % (11.5-14.5); White Blood Count 5.9 K/mm3 (4.5-10.0)
[2021-09-09 05:50] LABS: Alanine Aminotransferase 34 U/L (6-35); Albumin Level 3.1 g/dL (3.5-5.1); Alkaline Phosphatase 88 U/L (38-126); Anion Gap 4 mmol/L (8-16); Aspartate Amino Transferase 38 U/L (14-36); Bilirubin,Total 0.4 mg/dL (0.2-1.3); Blood Urea Nitrogen 12 mg/dL (7-17); Calcium 8.4 mg/dL (8.4-10.2); Carbon Dioxide 26 mmol/L (22-30); Chloride 109 mmol/L (98-107); Estimated CRCL calculation 45 ml/min; Estimated Glomerular Filt Rate > 60; Glucose 95 mg/dL (65-110); Potassium 3.7 mmol/L (3.4-5.0); Sodium 139 mmol/L (137-145)
[2021-09-09 06:42] VITALS: BP 147/70; PULSE 72; RESP 16; TEMP 36.8; O2SAT 94
[2021-09-09] MEDS: polyethylene glycoL 3350 17 GM POWD.PACK PO (08:21)
[2021-09-09 08:22] VITALS: PULSE 82
[2021-09-09] MEDS: SENNA/DOCUSATE SODIUM TABLET 2 TAB PO ×2 (08:22→16:46)
[2021-09-09] MEDS: METOPROLOL TARTRATE 25 MG TABLET 75 MG PO (08:22)
[2021-09-09] MEDS: FAMOTIDINE 20 MG TABLET PO (08:23)
[2021-09-09] MEDS: CEFDINIR 300 MG CAPSULE PO (08:23)
[2021-09-09] MEDS: APIXABAN 2.5 MG TABLET PO (08:23)
[2021-09-09] MEDS: lisinopriL 20 MG TABLET 40 MG PO (08:23)
[2021-09-09] MEDS: CHOLECALCIFEROL 1,000 UNITS TABLET 2000 UNITS PO (08:23)
[2021-09-09] MEDS: BRIMONIDINE TARTRATE 0.2% OP SOLN 5 ML BTL 1 DROP EACH EYE ×2 (08:23→16:46)
[2021-09-09 09:52] VITALS: PULSE 74; O2SAT 94
--- NOTE | 2021-09-09 11:15 | PM.IMPN ---
Progress Note: A&P Assessment and Plan (1) Displaced trimalleolar fracture of left ankle: Code(s): S82.852A - Displaced trimalleolar fracture of left lower leg, initial encounter for closed fracture <Meghanaanisha Horn PA-C - Last Filed: 09/09/21 11:20> Status: Acute <Meghanaanisha Billingsac, PA-C - Last Filed: 09/09/21 11:20> Assessment and Plan: Postoperative day 3, status post ORIF trimalleolar fracture. Tolerated procedure well. Pain is well controlled. Wound care, pain control, and DVT prophylaxis deferred to Orthopedic surgery Continue PT/OT <Meghana J. Manuelitoac, PA-C - Last Filed: 09/09/21 11:20> (2) Hypertension: Code(s): I10 - Essential (primary) hypertension <Meghana JMatthieu Billingsac, PA-C - Last Filed: 09/09/21 11:20> Status: Acute <Meghana JMatthieu Stimac, PA-C - Last Filed: 09/09/21 11:20> Assessment and Plan: Blood pressures were reviewed and have been reasonably controlled. Last BP 147/70 Continue antihypertensives and monitor BP trends <Meghana J. Manuelitololis, PA-C - Last Filed: 09/09/21 11:20> (3) Glaucoma: Code(s): H40.9 - Unspecified glaucoma <Meghana J. Manuelitoac, PA-C - Last Filed: 09/09/21 11:20> Status: Acute <Meghana J. Manuelitoac, PA-C - Last Filed: 09/09/21 11:20> Assessment and Plan: No acute issues Continue eyedrops. <Meghana J. Manuelitoac, PA-C - Last Filed: 09/09/21 11:20> (4) Urinary tract infection: Code(s): N39.0 - Urinary tract infection, site not specified <Meghana J. Manuelitoac, PA-C - Last Filed: 09/09/21 11:20> Status: Acute <Meghana J. Stimac, PA-C - Last Filed: 09/09/21 11:20> Assessment and Plan: Likely due to Geronimo catheter that was in place while she was at rehab. Geronimo catheter removed Urine culture with growth of >100k Proteus mirabilis Continue p.o. cefdinir based on susceptibility report for total of 7 days of antibiotic therapy <Meghana Horn PA-C - Last Filed: 09/09/21 11:20> Additional Plan Appropriate for discharge from medical standpoint pending SNF acceptance <Meghana Horn PA-C - Last Filed: 09/09/21 11:20> Subjective Date/time seen: 09/09/21 11:15 <Meghana Horn PA-C - Last Filed: 09/09/21 11:20> Interval history: Date of service: 09/09/2021 Taylor Perez is an 80-year-old female with a history hypertension, hyperlipidemia, osteopenia who is seen in follow-up for left ankle fracture s/p ORIF on 09/06/2021. She is doing well today. She is participating in therapy and tolerating this well. She was able to get to the bedside commode today. She denies any issues with urination including dysuria or hematuria. She had a bowel movement yesterday. Denies abdominal pain, nausea, or vomiting. Tolerating her diet well. No shortness of breath, cough, chest pain. Denies dizziness or lightheadedness. <MARTINEZ Hillman Last Filed: 09/09/21 11:20> Review of Systems Review of Systems: All systems reviewed & are unremarkable except as noted in HPI and below <Meghana Horn PA-C - Last Filed: 09/09/21 11:20> Exam Narrative: General: Well-nourished, well-appearing 80-year-old female, sitting up in bed, comfortable, NARD Neuro: awake, alert and oriented x4, speech clear, no focal neuro deficits noted HEENMT: normocephalic, atraumatic, EOMI, sclerae anicteric, moist oral mucosa Respiratory: clear to auscultation bilaterally, nonlabored breathing Cardio: regular rate, regular rhythm with S1-S2 Abdomen: nondistended, normoactive bowel sounds, soft, nontender to palpation Extremities: Left ankle wrapped in splint, able to wiggle left toes, brisk capillary refill, sensation intact, RLE without edema, erythema, or tenderness to palpation, right DP pulse 2+ Skin: no rashes or lesions, warm and dry Psych: appropriate mood and affect, judgment and insight intact <Meghana Horn PA-C - Last Filed: 09/09/21 11:20> Objective Data
[2021-09-09 12:57] LABS: EDCOVIDSCREEN Negative (Negative)
[2021-09-09 14:03] VITALS: BP 114/74; PULSE 74; RESP 16; TEMP 36.5; O2SAT 97
--- NOTE | 2021-09-09 15:02 | PM.DS ---
DS: Admitting Diagnosis Discharge Date 09/09/2021 Admitting Diagnosis displaced left trimalleolar ankle fracture DS: Discharge Diagnosis Discharge Diagnosis (1) Trimalleolar fracture of ankle, closed: Code(s): S82.853A - Displaced trimalleolar fracture of unspecified lower leg, initial encounter for closed fracture Status: Acute Plan patient was admitted for open reduction internal fixation of left trimalleolar ankle fracture on Monday09/07/2021. DS: Summary Hospital Course Reason for hospitalization: Recovery after open reduction internal fixation left trimalleolar ankle fracture. Hospital Course: Patient was brought to the hospital for open reduction internal fixation of displaced left trimalleolar ankle fracture on 09/07/2021. After removing the splint and soft roll she was noticed to have a 1 cm area of pressure sore versus skin necrosis over the anteromedial ankle. The swelling that she had had was resolved to the extent it was safe to proceed with open reduction internal fixation. This was performed. She was noted to have a Geronimo catheter in placed and urinalysis showed 50-75 white blood cells with few bacteria seen and culture showed greater than 100,000 colony-forming units of Proteus arrival is which was sensitive to Cefdiner and prescription written for this. She has been working with physical therapy transferring bed to chair nonweightbearing. Her family is hoping to take her home if she can learn to safely transfer with assist of 1. She is being transferred to the [facility] acute Rehab Facility. I have spoke with Dr. Ninfa Jameson very on the phone about her. We are using Eliquis for DVT prophylaxis. She has been comfortable with pain well controlled after surgery controlled on a half of an oxycodone as needed. Tylenol so being used. Status at Discharge Cognitive/behavioral status at discharge: Patient is in good condition overall. I felt she showed some signs of forgetfulness on some evenings making rounds but completely alert and oriented and she seems much better these last 2 days. Time Spent with Patient Time attestation: Total time spent providing and/or coordinating discharge services: DS: Data Data Completed and Pending Labs on day of discharge: Labs from last 24 hours 09/09/21 09/09/21 09/09/21 12:37 05:14 05:14 WBC 5.9 RBC 3.00 L Hgb 10.0 L Hct 31.4 L MCV 104.7 H MCH 33.3 MCHC 31.8 L RDW 12.6 Plt Count 296 MPV 9.2 Immature Gran % (Auto) 0.3 Neut % (Auto) 52.5 Lymph % (Auto) 33.0 Maverick % (Auto) 10.7 H Eos % (Auto) 3.0 Baso % (Auto) 0.5 Lymph # (Auto) 1.95 Maverick # (Auto) 0.6 Eos # (Auto) 0.2 Baso # (Auto) 0.0 Abs Immat Gran (auto) 0.02 Absolute Neuts (auto) 3.1 Absolute Nucleated RBC 0.0 Nucleated RBC % 0.0 Sodium 139 Potassium 3.7 Chloride 109 H Carbon Dioxide 26 Anion Gap 4 L BUN 12 Creatinine 0.80 Estim Creat Clear Calc 45 Estimated GFR > 60 Glucose 95 Calcium 8.4 Total Bilirubin 0.4 AST 38 H ALT 34 Alkaline Phosphatase 88 Total Protein 6.0 L Albumin 3.1 L SARS-CoV-2 IgG/IgM Ag?Rapid Negative Discharge Plan Discharge Attending physician on discharge: Antolin Milian Consulting providers: Meghana Horn Discharging Clinician: Antolin Milian Anticipated Discharge Date/Time: 09/09/21 15:02 Patient Disposition: Inpatient Rehab Facility Activity: no shower Diet: as tolerated Wound Care Instructions: other - see discharge instructions Discharge Instructions: Use bedside commode transfers with assist of 2 strict nonweightbearing on left leg. When in bed 1 pillow under left calf, nontender heel. Physical therapy for bed to chair transfers and bed to commode transfers strict nonweightbearing left leg. Patient may use bedpan but must roll to the side for placement. She must never put pressure on th
== END 2021-09-09 19:10 | DRG 493 ==
LOC: ANH2MED 12:12
PROVIDERS: Nurse Practitioner Family; Physician Assistant; Physician Assistant Surgical; Admitting Provider Orthopaedic Surgery; PCP Family Medicine; Visit Provider Orthopaedic Surgery
PROC: 0QSK04Z Reposition Left Fibula with Internal Fixation Device, Open Approach (ICD-10-PCS; principal; 2021-09-06 07:30)
DX: S82.852A Displaced trimalleolar fracture of left lower leg, initial encounter for closed fracture (principal); T83.511A Infection and inflammatory reaction due to indwelling urethral catheter, initial encounter; K21.9 Gastro-esophageal reflux disease without esophagitis; E78.00 Pure hypercholesterolemia, unspecified; I10 Essential (primary) hypertension; E55.9 Vitamin D deficiency, unspecified; Z82.49 Family history of ischemic heart disease and other diseases of the circulatory system; Z80.8 Family history of malignant neoplasm of other organs or systems; Z83.3 Family history of diabetes mellitus; Z80.1 Family history of malignant neoplasm of trachea, bronchus and lung; H40.9 Unspecified glaucoma; Y84.6 Urinary catheterization as the cause of abnormal reaction of the patient, or of later complication, without mention of misadventure at the time of the procedure; M85.80 Other specified disorders of bone density and structure, unspecified site; B96.4 Proteus (mirabilis) (morganii) as the cause of diseases classified elsewhere; Z79.899 Other long term (current) drug therapy; Z20.822 Contact with and (suspected) exposure to COVID-19
CPT/HCPCS: 36415; 80048; 80053; 81001; 83735; 85025; 87070; 87077; 87086; 87186; 87426; 97110; 97161; 97165; 97530; 97535; A9270; C1713; C1769; C9803; J0690; J0696; J1100; J1580; J1885; J2370; J2405; J2704; J3010; J3370; J7120

== ENCOUNTER 2021-10-01 13:02 | Outpatient (CLI) | payer MEDICARE, OTHER, SELFPAY ==
--- NOTE | ~2021-10-01 | US_ITS ---
US venous doppler [facility] DATE: 10/01/2021 14:21 INDICATION: Postoperative swelling of left lower extremity TECHNIQUE: Real-time and color flow imaging and Doppler analysis of the veins of the left leg COMPARISON: None FINDINGS: The left greater saphenous vein is patent. The common femoral vein is patent. There is intraluminal thrombus and absence of compression of the left femoral vein. There is spontaneous and phasic flow and normal augmentation and color flow signal and normal edin henrik of the popliteal, posterior tibial and peroneal veins. IMPRESSION: Left femoral vein thrombosis Dr. Stack telephoned the report on 10/01/20[address] Barnes; I personally escorted the pa tient with her daughter to the emergency room per Dr. Barnes's instructions. Reviewed, dictated and finalized at [facility]. Reviewed, dictated and finalized at location A. IMPRESSION: Left femoral vein thrombosis Dr. Stack telephoned the report on 10/01/2021 [address] Barnes; I pers onally escorted the patient with her daughter to the emergency room per Dr. Alize lanza's instructions.
== END 2021-10-01 13:03 | disposition home or self-care (01) ==
PROVIDERS: PCP Family Medicine; Visit Provider Orthopaedic Surgery
DX: R60.0 Localized edema (principal); I82.412 Acute embolism and thrombosis of left femoral vein
CPT/HCPCS: 93971

== ENCOUNTER 2021-10-01 14:35 | Emergency (ER) | payer MEDICARE, OTHER, SELFPAY ==
[2021-10-01 14:43] VITALS: BP 139/68; PULSE 72; RESP 18; TEMP 36.6; O2SAT 100
--- NOTE | 2021-10-01 15:36 | ED.GENADULT ---
HPI - General Adult General Chief complaint: Recheck/Abnormal Lab/Rx Stated complaint: DVT L Leg Time Seen by Provider: 10/01/21 14:44 Source: RN notes reviewed History of Present Illness HPI narrative: Patient presents emergency department for from radiology for left leg DVT. Patient has a history of recent ankle fracture with surgery by Dr. Milian. The patient initially been on Eliquis postsurgery but 2 weeks ago Eliquis had been stopped and patient been started on a baby aspirin daily patient noted increased swelling in her leg and seen by Dr. Milian today who ordered a lower extremity ultrasound ultrasound came back positive for DVT and patient was sent to the ER for further evaluation. Patient denies any fevers or chills chest pain shortness of breath or any other symptoms Related Data Home Medications Medication Instructions Recorded Confirmed cholecalciferol (vitamin D3) 50 2,000 unit PO DAILY 05/14/19 09/14/21 mcg (2,000 unit) tablet (Vitamin D3) coenzyme Q10 100 mg capsule (Co 100 mg PO DAILY 05/14/19 09/14/21 Q-10) pyridoxine (vitamin B6) 100 mg 100 mg PO DAILY 03/02/21 09/14/21 tablet brimonidine 0.2 % eye drops 1 drp EACH EYE BID 09/02/21 09/14/21 calcium citrate 250 mg 2 tablet PO BID 09/14/21 09/14/21 calcium-vitamin D3 5 mcg (200 unit) tablet (Citracal Regular) cyanocobalamin (vitamin B-12) 1,000 mcg PO DAILY 09/14/21 09/14/21 1,000 mcg tablet famotidine 1 tablet PO DAILY 09/14/21 09/14/21 multivitamin 1 tablet PO DAILY 09/14/21 09/14/21 w-min#75-YW-ccjmizvr-lutein 2.8 mg-500 mcg-500 mcg tablet vitamin A-vitamin C-vit E-min 1 tablet PO DAILY 09/14/21 09/14/21 tablet Allergies Allergy/AdvReac Type Severity Reaction Status Date / Time alendronate sodium AdvReac Intermediate upset Verified 09/06/21 12:24 [From Fosamax] stomach cephalexin AdvReac Unknown YEAST Verified 09/06/21 12:24 INFECTION meperidine AdvReac Unknown LOW BLOOD Verified 09/06/21 12:24 PRESSURE, N/V Review of Systems Review of Systems: Gen.: Denies fevers or chills Respiratory: Denies shortness of breath CV: Denies chest pain GI: Denies abdominal pain nausea, emesis Musculoskeletal: See HPI Neuro: Denies numbness, tingling, weakness or focal weakness Skin: Denies rash Except as documented, all other systems reviewed and negative [facility] Past Medical History Medical History Arthritis Gastroesophageal reflux disease Glaucoma Hearing loss High cholesterol Hypertension Osteopenia Skin cancer Vitamin D deficiency disease Surgical History Surgical History History of abdominal supracervical subtotal hysterectomy (04/2014) History of benign breast biopsy History of bilateral salpingo-oophorectomy (04/2014) History of colonoscopy Internal hemorrhoids and diverticulosis. History of laparoscopic cholecystectomy (08/2016) History of meniscectomy of right knee (08/2012) History of open reduction and internal fixation (ORIF) procedure (09/06/21) Displaced left ankle trimalleolar fracture. History of repair of hip fracture (09/2008) Internal fixation with gamma nail of a left intertrochanteric hip fracture. History of sacrocolpopexy (04/2014) For uterine prolapse. Status post trigger finger release (08/2009) Right 3rd finger. Family History Family History Mother Family history of malignant neoplasm Family history of lymphoma, Onset Age: 81 Sibling Family history of diabetes mellitus in first degree relative Father Family history of pancreatic cancer, Onset Age: 58 Other Arthritis Cerebrovascular accident Diabetes mellitus Family history of lung cancer High cholesterol Hypertension Social History Social History Social His
--- NOTE | 2021-10-01 16:38 | PCCCNOTE ---
Late entry: Phone call received from Dr. Ely at 2:55pm, about checking coverage for either Eliquis or Xarelto. Met with patient and daughter in ED 18. Patient states that when she was in rehab she was alerted that her Eliquis would cost around 400 dollars which she told them she could not afford and was advised to take two baby aspirin. Asked patient if she used a trial card and she unsure. Called to [facility] to check coverage for Xarelto and they do not have 15mg or start guerra and are not able to check coverage at this time. Called to [facility], it is showing that might have coverage available for 90 days through [employer] unable to put an override through. Met with patient and looked at Part D coverage card which is showing Medicare/[employer] - . Called to spoke with Dom, he states that patient has a deductible to meet of $480 then the Xarelto will cost 11.36 per month. and that is why the Eliquis cost the same also. Asked what are the preferred pharmacies for the patient and he states [facility] or [facility] for mail order. Call reference # [id number]. Met with patient and daughter and explained the deductible coverage, patient verbalizes understanding. Advised that per conversation with Part D/Medicare her preferred pharmacy is [facility] or [facility]. For [facility] patient would prefer [facility], [facility] [address]. Called to [facility], they do not have starter pack but they do have 15mg tablets and 20mg tablets. Updated Dr. Ely. Provided patient with Xarelto Savings booklet that that the free trial card and the savings card for qualifying patients- advised to call project management specialist as soon as possible to see if would qualify for savings or any other support due to high deductible. Patient and daughter verbalized understanding.
[2021-10-01 16:45] LABS: Basophils Absolute Auto 0.1 K/mm3 (0.0-0.1); Basophils Percent Auto 0.6 % (0.2-1.2); Eosinophils Absolute Auto 0.2 K/mm3 (0-0.3); Eosinophils Percent Auto 1.9 % (0-4.4); Hematocrit 37.9 % (37.0-47.0); Hemoglobin 12.1 g/dL (12.0-15.0); Immature Granulocyte Absolute 0.03 K/mm3 (0.00-0.031); Immature Granulocyte Percent A 0.4 % (0-0.5); Lymphocytes Absolute Auto 2.17 K/mm3 (0.9-3.2); Lymphocytes Percent Auto 27.2 % (18.3-44.2); Mean Corpuscular HGB Conc 31.9 g/dl (32-36); Mean Corpuscular Hemoglobin 32.8 pg (26-34); Mean Corpuscular Volume 102.7 fl (80-100); Monocytes Absolute Auto 0.8 K/mm3 (0.1-0.6); Neutrophils Absolute Auto 4.8 K/mm3 (1.3-6.7); Neutrophils Percent Auto 59.9 % (45.5-73.1); Platelet Count Result 276 k/mm3 (150-375); Red Blood Count 3.69 M/mm3 (4.2-5.4); Red Cell Distribution Width 13.4 % (11.5-14.5)
[2021-10-01 16:59] LABS: Alanine Aminotransferase 21 U/L (6-35); Albumin Level 4.6 g/dL (3.5-5.1); Alkaline Phosphatase 116 U/L (38-126); Anion Gap 6 mmol/L (8-16); Aspartate Amino Transferase 36 U/L (14-36); Bilirubin,Total 0.3 mg/dL (0.2-1.3); Blood Urea Nitrogen 14 mg/dL (7-17); Calcium 9.7 mg/dL (8.4-10.2); Carbon Dioxide 30 mmol/L (22-30); Chloride 103 mmol/L (98-107); Estimated CRCL calculation 47 ml/min; Estimated Glomerular Filt Rate > 60; Glucose 96 mg/dL (65-110); Potassium 4.4 mmol/L (3.4-5.0); Sodium 139 mmol/L (137-145)
[2021-10-01 17:00] LABS: INR 1.1; Prothrombin Time 13.4 Seconds (11.1-14.7)
[2021-10-01 17:01] LABS: Partial Thromboplastin Time 30.9 SECONDS (22.3-36.8)
[2021-10-01] MEDS: RIVAROXABAN 15 MG TABLET PO (17:31)
== END 2021-10-01 17:38 | disposition home or self-care (01) ==
PROVIDERS: Emergency Provider Emergency Medicine; PCP Family Medicine
DX: I82.402 Acute embolism and thrombosis of unspecified deep veins of left lower extremity (principal); I10 Essential (primary) hypertension; E78.00 Pure hypercholesterolemia, unspecified; K21.9 Gastro-esophageal reflux disease without esophagitis; H40.9 Unspecified glaucoma; M19.90 Unspecified osteoarthritis, unspecified site; M85.80 Other specified disorders of bone density and structure, unspecified site; E55.9 Vitamin D deficiency, unspecified; Z85.828 Personal history of other malignant neoplasm of skin
CPT/HCPCS: 36415; 80053; 85025; 85610; 85730; 93971; 99283; A9270

== ENCOUNTER 2021-11-08 13:26 | Outpatient (CLI) | payer MEDICARE, OTHER, SELFPAY ==
--- NOTE | ~2021-11-08 | DEXA_ITS ---
Bone Density Report Name: ALISON NORMAN Age: 80 Sex: Female Ethnicity: White Date of : 1940 Indication: osteopenia; monitoring treatment; height loss; prior fracture; hysterectomy; postmenopausal Referring Provider: YECENIA MEHTA Study: Bone densitometry was performed. Exam Date: November 08, 2021 Accession number: [id number] Bone Density: Region BMD T-score Z-score Classification AP Spine(L1-L4) 0.903 -1.3 1.4 Osteopenia Femoral Neck (Right) 0.528 -2.9 -0.5 Osteoporosis Total Hip (Right) 0.688 -2.1 0.1 Osteopenia World Health Organization criteria for BMD impression classify patients as: Normal (T-score at or above -1.0), Osteopenia (T-score between -1.0 and -2.5), or Osteoporosis (T-score at or below -2.5). 10-year Fracture Risk: FRAX not reported because: Some T-score for Spine Total or Hip Total or Femoral Neck at or below -2.5 Treated for osteoporosis Previous Exams: Region Exam Age BMD T-score BMD Change BMD Change Date g/cm2 vs Baseline vs Previous AP Spine (L1-L4) 11/08/2021 80 0.903 -1.3 0.064 (7.6%)# 0.064 (7.6%)# 02/12/2015 74 0.839 -1.9 Total Hip(Right) 11/08/2021 80 0.688 -2.1 0.001 (0.1%)# 0.008 (1.2%) 04/07/2020 79 0.680 -2.2 -0.007 (-1.0%) 0.007 (1.0%) 03/15/2017 76 0.673 -2.2 -0.014 (-2.0%) -0.014 (-2.0%) 02/12/2015 74 0.687 -2.1 *Denotes significance at 95% confidence level, LSC for AP Spine = 0.022 g/cm2, LSC for Total Hip = 0.027 g/cm2 # Denotes dissimilar scan types or analysis methods Clinical Information Provided by Patient: Has had a low trauma fracture Is being treated for osteoporosis Has used the following medications: Vitamin D, Calcium Has the following medical conditions: Hysterectomy Patient maximum height was 64 Menopause Age: 49 No regular weight bearing exercise Drinks caffeinated beverages Onset of menses at age 10 Number of children 2 Impression: The patient has established osteoporosis, based on the Right Femoral Neck T-score and the existence of a prior fracture. The patient has risk factors, including: previous fracture. No significant bone loss was observed. Discussion: PATIENT UNDER TREATMENT WITH NO SIGNIFICANT BMD LOSS SINCE LAST EXAM. In an untreated patient, BMD typically declines with age. A lack of decline or gain is usually a sign that treatment is efficacious and fracture risk is reduced. It is important to ask patients whether they are taking their medications and to encourage continued and appropriate compliance with their osteopor
--- NOTE | ~2021-11-08 | MM_ITS ---
EXAMINATION: MM screening fallon BI w miladis HISTORY: Screening mammogram TECHNIQUE: Craniocaudal and mediolateral oblique 3-D tomosynthesis images were obtained and synthetic 2-D images were generated. CAD analysis was submitted and interpreted. COMPARISON: 04/07/2020, 12/13/2018, 03/15/2017 bilateral screening mammogram examinations BREAST PARENCHYMAL COMPOSITION: The breasts are almost entirely fatty. FINDINGS: There is no evidence of suspicious mass, calcification, or architectural distortion to sugg est malignancy in either breast. There has been no suspicious interval change. IMPRESSION: 1. No mammographic evidence of malignancy. 2. Recommend routine screening mammography in one year. BI-RADS Category 1: Negative Reviewed, dictated and finalized at location A.
== END 2021-11-08 13:27 | disposition home or self-care (01) ==
LOC: ANHIMG 13:27
PROVIDERS: PCP Family Medicine; Visit Provider Family Medicine
DX: Z12.31 Encounter for screening mammogram for malignant neoplasm of breast (principal); Z78.0 Asymptomatic menopausal state; M85.89 Other specified disorders of bone density and structure, multiple sites; M81.0 Age-related osteoporosis without current pathological fracture
CPT/HCPCS: 77063; 77067; 77080

== ENCOUNTER 2022-02-25 10:28 | Outpatient (CLI) | payer MEDICARE, OTHER, SELFPAY ==
--- NOTE | ~2022-02-25 | US_ITS ---
EXAMINATION: US venous doppler [facility] DATE: 02/25/2022 11:21 INDICATION: Chest pain TECHNIQUE: Mccray scale images without and with compression and Doppler images of the left lower extrem ity veins were obtained. COMPARISON: 10/01/2021 FINDINGS: The left common femoral vein, profunda femoral vein, femoral vein, popliteal vein, peroneal trunk, posterior tibial veins, and greater saphenous vein are patent. IMPRESSION: 1. Patent left lower extremity veins. No evidence of deep venous thrombosis. Reviewed, dictated and finalized at location B. [facility] [employer] [employer]
== END 2022-02-25 10:29 | disposition home or self-care (01) ==
PROVIDERS: PCP Family Medicine; Visit Provider Family Medicine
DX: R07.81 Pleurodynia (principal); I82.409 Acute embolism and thrombosis of unspecified deep veins of unspecified lower extremity
CPT/HCPCS: 93971

== ENCOUNTER 2022-07-04 08:55 | Emergency (ER) | payer MEDICARE, OTHER, SELFPAY ==
--- NOTE | ~2022-07-04 | XR_ITS ---
Right wrist Technique: PA, oblique, lateral, and ulnar deviation views were obtained. Clinical History: Pain Findings: Probable small dorsal triquetral fracture noted. No other fracture seen. Joint spaces are p reserved. Soft tissues are unremarkable. Impression: Probable small dorsal triquetral fracture. Reviewed, dictated and finalized at location . Impression: Probable small dorsal triquetral fracture.
--- NOTE | ~2022-07-04 | XR_ITS ---
Left Shoulder Technique: AP and scapular Y views were obtained. Clinical History: Pain Findings: No fracture or dislocation is seen. Osseous alignment is anatomic. Glenohumeral joint is in tact. There is mild AC joint degenerative change. Soft tissues are unremarkable. Impression: No fracture or dislocation. Mild AC joint degenerative change. Reviewed, dictated and finalized at location . Impression: No fracture or dislocation. Mild AC joint degenerative change.
--- NOTE | ~2022-07-04 | XR_ITS ---
Right elbow Technique: AP, oblique, and lateral views were obtained. Clinical History: Pain Findings: No acute fracture or dislocation is seen. Osseous alignment is anatomic. Joint spaces are p reserved. There is no displacement of the fat pads, and soft tissues are unremarkable. Impression: Unremarkable radiographs. Reviewed, dictated and finalized at location . Impression: Unremarkable radiographs.
--- NOTE | ~2022-07-04 | XR_ITS ---
Right Shoulder Technique: AP and scapular Y views were obtained. Clinical History: Pain Findings: No fracture or dislocation is seen. Osseous alignment is anatomic. There is moderate AC carli nt degenerative change. Glenohumeral joint is intact. Soft tissues are unremarkable. Impression: Moderate AC joint degenerative change. No fracture or dislocation. Reviewed, dictated and finalized at location . Impression: Moderate AC joint degenerative change. No fracture or dislocation.
[2022-07-04 09:09] VITALS: BP 196/92; PULSE 64; RESP 16; TEMP 36.5; O2SAT 98
[2022-07-04 10:09] VITALS: BP 208/94; PULSE 63; RESP 18; O2SAT 99
--- NOTE | 2022-07-04 10:19 | ED.UPPEXIN ---
HPI - Extremity Injury (Upper) General Chief Complaint: Extremity Injury, Upper Stated Complaint: R ARM INJURY Time Seen by Provider: 07/04/22 10:04 Source: patient Mode of arrival: ambulatory Limitations: no limitations History of Present Illness HPI narrative: This is an 81-year-old female that presents to the emergency department for right arm pain after an injury yesterday. Reports her dog pulled at the leash that she was holding yesterday. This twisted her arm. Since she has had pain from the shoulder down into the forearm. She did not fall. Also reports that her left shoulder has been hurting her since last year. No recent injuries or trauma to this arm. Would like this evaluated. She has not taken anything today for pain. She also did not take her blood pressure medication this morning. Denies fever, edema, erythema, numbness, or weakness. Related Data Home Medications Medication Instructions Recorded Confirmed cholecalciferol (vitamin D3) 50 2,000 unit PO DAILY 05/14/19 02/07/22 mcg (2,000 unit) tablet (Vitamin D3) pyridoxine (vitamin B6) 100 mg 100 mg PO DAILY 03/02/21 02/07/22 tablet brimonidine 0.2 % eye drops 1 drp EACH EYE BID 09/02/21 02/07/22 cyanocobalamin (vitamin B-12) 1,000 mcg PO DAILY 09/14/21 02/07/22 1,000 mcg tablet multivitamin 1 tablet PO DAILY 09/14/21 02/07/22 w-min#82-IT-yrxclnyw-lutein 2.8 mg-500 mcg-500 mcg tablet vitamin A-vitamin C-vit E-min 1 tablet PO DAILY 09/14/21 02/07/22 tablet acetaminophen 500 mg capsule 500 mg PO Q6H PRN 10/27/21 02/07/22 calcium carbonate 600 1 cap PO BID 12/01/21 02/07/22 mg-ergocalciferol (vit D2) 200 unit capsule Allergies Allergy/AdvReac Type Severity Reaction Status Date / Time alendronate sodium AdvReac Intermediate upset Verified 07/04/22 10:07 [From Fosamax] stomach cephalexin AdvReac Unknown YEAST Verified 07/04/22 10:07 INFECTION meperidine AdvReac Unknown LOW BLOOD Verified 07/04/22 10:07 PRESSURE, N/V Review of Systems Review of Systems: CONSTITUTIONAL: Denies fever SKIN: Denies rash MUSCULOSKELETAL: Reports joint pain, and myalgia. NEUROLOGIC: Denies numbness, or weakness. All systems reviewed & are unremarkable except as noted in HPI and below [facility] Past Medical History Medical History (Updated 07/04/22 @ 11:42 by Kanchan Soliman PA-C) Anemia Arthritis DVT (deep venous thrombosis) Gastroesophageal reflux disease Glaucoma Hearing loss High cholesterol Hypertension Osteopenia Skin cancer Vitamin D deficiency disease Surgical History Surgical History History of abdominal supracervical subtotal hysterectomy (04/2014) History of benign breast biopsy History of bilateral salpingo-oophorectomy (04/2014) History of colonoscopy Internal hemorrhoids and diverticulosis. History of laparoscopic cholecystectomy (08/2016) History of meniscectomy of right knee (08/2012) History of open reduction and internal fixation (ORIF) procedure (09/06/21) Displaced left ankle trimalleolar fracture. History of repair of hip fracture (09/2008) Internal fixation with gamma nail of a left intertrochanteric hip fracture. History of sacrocolpopexy (04/2014) For uterine prolapse. Status post trigger finger release (08/2009) Right 3rd finger. Family History Family History Mother Family history of malignant neoplasm Family history of lymphoma, Onset Age: 81 Sibling Family history of diabetes mellitus in first degree relative Father Family history of pancreatic cancer, Onset Age: 58 Other Arthritis Cerebrovascular accident Diabetes mellitus Family history of lung cancer High cholesterol Hypertension Social History Social History Social History: Surrogate decision maker: celestino Gonzales
[2022-07-04] MEDS: ACETAMINOPHEN 500 MG TABLET 1000 MG PO (10:53)
--- NOTE | 2022-07-04 11:22 | PC.NURSE ---
assumed care of pt. pt sleeping on stretcher, easily arroused by name. pt c/o right arm pain, 10/24. no other complaints at this time
[2022-07-04 11:23] VITALS: BP 179/83; PULSE 59; RESP 16; O2SAT 99
[2022-07-04 12:24] VITALS: BP 148/85; PULSE 68; RESP 16; O2SAT 97
== END 2022-07-04 12:26 | disposition home or self-care (01) ==
PROVIDERS: Emergency Provider Physician Assistant; PCP Family Medicine
DX: S62.114A Nondisplaced fracture of triquetrum [cuneiform] bone, right wrist, initial encounter for closed fracture (principal); D64.9 Anemia, unspecified; M19.90 Unspecified osteoarthritis, unspecified site; K21.9 Gastro-esophageal reflux disease without esophagitis; I10 Essential (primary) hypertension; X50.0XXA Overexertion from strenuous movement or load, initial encounter
CPT/HCPCS: 29125; 73030; 73080; 73110; 99284; A4565; A9270

== ENCOUNTER 2023-04-04 19:18 | Emergency (ER) | payer MEDICARE, OTHER, SELFPAY ==
--- NOTE | ~2023-04-04 | XR_ITS ---
EXAMINATION: XR shoulder RT min 2V DATE: 04/04/2023 20:58 INDICATION: Right shoulder pain. Injury. TECHNIQUE: 4 views of right shoulder were obtained. COMPARISON: Right shoulder radiographs 07/04/2022 FINDINGS: Bone alignment is normal. No fracture. There is mild osteoarthritis of glenohumeral joint a nd severe osteoarthritis of acromioclavicular joint. There is calcific tendinitis of the rotator cuff . IMPRESSION: 1. Polyarticular osteoarthritis. 2. Calcific tendinitis of the rotator cuff. Reviewed, dictated and finalized at location E. ICAL SALES CONSULTANT
--- NOTE | ~2023-04-04 | XR_ITS ---
EXAMINATION: XR chest 2V DATE: 04/04/2023 20:58 INDICATION: Cough. Right shoulder pain. TECHNIQUE: Frontal and lateral views of the chest were obtained. COMPARISON: Chest single view 01/10/2019 FINDINGS: There is mild scarring at right lung apex. There is mild atelectasis versus scarring at the lung bases. No pleural effusion or pneumothorax. The heart size is normal. Surgical clips in the rig ht upper quadrant are likely from cholecystectomy. IMPRESSION: 1. Mild scarring at right lung apex and mild atelectasis versus scarring at the lung bases. Reviewed, dictated and finalized at location E. R SERVICE SUPERVISOR
[2023-04-04 19:41] VITALS: BP 157/85; PULSE 87; RESP 15; TEMP 38.2; O2SAT 96
[2023-04-04 21:24] VITALS: O2SAT 99
--- NOTE | 2023-04-04 21:32 | ED.GENADULT ---
HPI - General Adult General Chief complaint: Fall Stated complaint: fall/right arm pain Time Seen by Provider: 04/04/23 21:18 Source: patient Mode of arrival: ambulatory Limitations: no limitations History of Present Illness HPI narrative: This is a 89-year-old female who presents to the ED with chief complaint of right shoulder pain after a fall that occurred 3 days ago. Reports that she was walking through home when her dog accidentally tripped her causing her to fall to the couch. She reports that she did land on the right side. She has no arthritis there and feels like the pain is slightly worsening. Upon triage patient was noted to have a fever of 100.7. She states that she has been dealing with sinus congestion and a slightly productive cough over the last week. Reports having some chills at night but no recorded fevers. States the cough seems to be persistent but not acutely worsening. Denies chest pain, shortness of breath Related Data Home Medications Medication Instructions Recorded Confirmed cholecalciferol (vitamin D3) 50 2,000 unit PO DAILY 05/14/19 03/29/23 mcg (2,000 unit) tablet (Vitamin D3) pyridoxine (vitamin B6) 100 mg 100 mg PO DAILY 03/02/21 03/29/23 tablet brimonidine 0.2 % eye drops 1 drp EACH EYE BID 09/02/21 03/29/23 cyanocobalamin (vitamin B-12) 1,000 mcg PO DAILY 09/14/21 03/29/23 1,000 mcg tablet multivitamin 1 tablet PO DAILY 09/14/21 03/29/23 w-min#45-YE-qqgjhujo-lutein 2.8 mg-500 mcg-500 mcg tablet coenzyme T28-dxlkiwu E 100 mg-100 cap PO DAILY 12/01/22 03/29/23 unit capsule calcium citrate 1,200 mg PO DAILY 12/05/22 03/29/23 docusate sodium 50 mg capsule 50 mg PO DAILY PRN 12/05/22 03/29/23 (Stool Softener) ibuprofen 200 mg tablet 400 mg PO BID 12/05/22 03/29/23 vutcplrl-dld- 250 mg-dha 90 1 cap PO DAILY 12/05/22 03/29/23 mg-epa 160 li-xadc-yrsh-zeax capsule (Ocuvite Adult 50 Plus) Allergies Allergy/AdvReac Type Severity Reaction Status Date / Time alendronate sodium AdvReac Intermediate upset Verified 03/29/23 12:00 [From Fosamax] stomach cephalexin AdvReac Unknown YEAST Verified 03/29/23 12:00 INFECTION meperidine AdvReac Unknown LOW BLOOD Verified 03/29/23 12:00 PRESSURE, N/V Review of Systems Review of Systems: All systems as dictated in [facility] Past Medical History Medical History Anemia Ankle arthralgia (~07/22/20) Ankle arthritis Anosmia Arthritis Bimalleolar ankle fracture Bimalleolar avulsion fracture of left ankle Displaced trimalleolar fracture of left ankle DVT (deep venous thrombosis) DVT prophylaxis Dysphagia Encephalopathy Gastroesophageal reflux disease Glaucoma Hearing loss High cholesterol HTN (hypertension) Hypertension Low vitamin D level Osteopenia Osteoporosis Paresthesia Post-menopausal Prediabetes Skin cancer Trimalleolar fracture of ankle, closed Vitamin D deficiency disease Surgical History Surgical History History of abdominal supracervical subtotal hysterectomy (04/2014) History of benign breast biopsy History of bilateral salpingo-oophorectomy (04/2014) History of colonoscopy Internal hemorrhoids and diverticulosis. History of laparoscopic cholecystectomy (08/2016) History of meniscectomy of right knee (08/2012) History of open reduction and internal fixation (ORIF) procedure (09/06/21) Displaced left ankle trimalleolar fracture. History of repair of hip fracture (09/2008) Internal fixation with gamma nail of a left intertrochanteric hip fracture. History of sacrocolpopexy (04/2014) For uterine prolapse. History of total left hip arthroplasty Status post trigger finger release (08/2009) Right 3rd finger. Family History Family History Mother Family history of malignan
[2023-04-04 21:50] LABS: Influenza A QL RT-PCR Negative (Negative); Influenza B QL RT-PCR Negative (Negative); RSV RNA, RT-PCR Negative (Negative); SARS-CoV-2 RNA PCR Negative (Negative)
[2023-04-04 21:51] LABS: Basophils Absolute Auto 0.1 K/mm3 (0.0-0.1); Basophils Percent Auto 0.9 % (0.2-1.2); Eosinophils Absolute Auto 0.1 K/mm3 (0-0.3); Hemoglobin 13.2 g/dL (12.0-15.0); Immature Granulocyte Absolute 0.03 K/mm3 (0.00-0.031); Immature Granulocyte Percent A 0.3 % (0-0.5); Lymphocytes Absolute Auto 2.29 K/mm3 (0.9-3.2); Lymphocytes Percent Auto 24.4 % (18.3-44.2); Mean Corpuscular Hemoglobin 33.8 pg (26-34); Mean Corpuscular Volume 102.3 fl (80-100); Mean Platelet Volume 9.8 fl (7.4-10.4); Monocytes Absolute Auto 1.1 K/mm3 (0.1-0.6); Monocytes Percent Auto 11.2 % (2.6-8.5); Neutrophils Absolute Auto 5.9 K/mm3 (1.3-6.7); Neutrophils Percent Auto 62.2 % (45.5-73.1); Platelet Count Result 221 k/mm3 (150-375); Red Blood Count 3.91 M/mm3 (4.2-5.4); White Blood Count 9.4 K/mm3 (4.5-10.0)
[2023-04-04 22:00] LABS: Alanine Aminotransferase 30 U/L (6-35); Albumin Level 4.4 g/dL (3.5-5.1); Alkaline Phosphatase 122 U/L (38-126); Anion Gap 10 mmol/L (8-16); Aspartate Amino Transferase 39 U/L (14-36); Bilirubin,Total 0.5 mg/dL (0.2-1.3); Blood Urea Nitrogen 15 mg/dL (7-17); Calcium 9.4 mg/dL (8.4-10.2); Carbon Dioxide 25 mmol/L (22-30); Chloride 105 mmol/L (98-107); Estimated CRCL calculation 52 ml/min; Estimated Glomerular Filt Rate > 60; Glucose 113 mg/dL (65-110); Sodium 140 mmol/L (137-145)
[2023-04-04 22:48] VITALS: PULSE 81; RESP 20; O2SAT 100
== END 2023-04-04 22:45 | disposition home or self-care (01) ==
PROVIDERS: Emergency Medicine; Emergency Provider Physician Assistant; PCP Family Medicine
DX: S49.91XA Unspecified injury of right shoulder and upper arm, initial encounter (principal); Z20.822 Contact with and (suspected) exposure to COVID-19; R05.9 Cough, unspecified; D64.9 Anemia, unspecified; M19.90 Unspecified osteoarthritis, unspecified site; K21.9 Gastro-esophageal reflux disease without esophagitis; I10 Essential (primary) hypertension; W01.0XXA Fall on same level from slipping, tripping and stumbling without subsequent striking against object, initial encounter
CPT/HCPCS: 36415; 71046; 73030; 80053; 85025; 87637; 99284; A4565

== ENCOUNTER 2023-11-09 15:54 | Outpatient (CLI) | payer MEDICARE, OTHER, SELFPAY ==
--- NOTE | ~2023-11-09 | MR_ITS ---
EXAMINATION: MR brain IAC wo/w con DATE: 11/09/2023 17:06 INDICATION: Bilateral temporal headaches TECHNIQUE: Magnetic resonance imaging (MRI) of the brain and brainstem was performed without and with 15 mL Multihance intravenous contrast. Sequences included sagittal and axial T1-weighted FSE, axial diffusion-weighted FS EPI, axial T2*-weighted GRE, axial T2-weighted FLAIR Propeller, axial T2-weight ed Propeller, small fqoat-zs-nxga coronal FIESTA, small wvbik-wn-mfaq coronal T1-weighted FSE, and sm all ptvdj-ob-kkfp axial T1-weighted SPGR. Postcontrast sequences included axial T1-weighted FSE, smal l clmlq-zz-xlxl coronal T1-weighted FSE, and small ikvne-hm-obbw axial T1-weighted SPGR. Apparent dif fusion coefficient (ADC) maps were created. COMPARISON: Head CT dated 11/03/2017 FINDINGS: There are no areas of restricted diffusion to suggest acute infarction. There is a 9 x 7 x 3 mm T1 an d T2 hyperintense lesion with peripheral low signal intensity rim on susceptibility weighted imaging without surrounding edema located within a gyrus of the left parietal lobe consistent with a cerebral cavernous malformation. Tiny focus of susceptibility artifact slightly to the left of the midline in the oliver consistent with the presence of chronic blood products potentially an additional tiny sheeba noma or microhemorrhage such as in the setting of hypertension. There are scattered areas of nonspeci fic increased T2-weighted signal intensity in the cerebral white matter, predominantly involving the deep and periventricular white matter. There are no intraparenchymal signal abnormalities seen on the other pulse sequences. Normal seventh/eighth cranial nerve complexes. No cerebellopontine angles ma sses. No evidence of mastoid or middle ear fluid. The ventricles are symmetric and normal in size. There are n o abnormal extra-axial fluid collections. Flow voids are seen in the cerebral arteries on the T2-weig hted sequences consistent with their expected patency. Visualized orbits and soft tissues are unremar kable. There are no areas of abnormal enhancement on the post contrast images. IMPRESSION: 1. No acute intracranial process or abnormally enhancing brain lesions. 2. 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 Second tiny focus of susce ptibility artifact in the right side of the oliver which could represent additional tiny cavernoma or f ocus of chronic microhemorrhage such as in the setting of hypertension. 3. Otherwise normal for age brain MRI with mild scattered nonspecific white matter T2 hyperintensity likely sequela of chronic small vessel ischemic disease. Reviewed, dictated and finalized at location A. IMPRESSION: 1. No acute intracranial process or abnormally enhancing brain lesions. 2. 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 Seco nd tiny focus of susceptibility artifact in the right side of the oliver which co uld represent additional tiny cavernoma or focus of chronic microhemorrhage suc h as in the setting of hypertension. 3. Otherwise normal for age brain MRI with mild scattered nonspecific white mat ter T2 hyperintensity likely sequela of chronic small vessel ischemic disease.
== END 2023-11-09 15:55 ==
LOC: MICIMG 15:55
PROVIDERS: PCP Family Medicine; Visit Provider Student in an Organized Health Care Education/Training Program
DX: Q28.3 Other malformations of cerebral vessels (principal); R90.82 White matter disease, unspecified
CPT/HCPCS: 70553; A9577

== ENCOUNTER 2024-06-14 20:09 | Emergency (ER) | payer MEDICARE, OTHER, SELFPAY ==
[2024-06-14 20:19] VITALS: BP 155/89; PULSE 64; RESP 18; TEMP 36.4; O2SAT 96
[2024-06-14 21:34] VITALS: PULSE 57; RESP 18; O2SAT 95
--- NOTE | 2024-06-14 23:28 | ED.FALL ---
HPI - Fall General Chief Complaint: Fall Stated Complaint: fall, tailbone injury Time Seen by Provider: 06/14/24 22:27 History of Present Illness HPI Narrative: 83-year-old female presenting to the emergency department for evaluation of tailbone left hip pain after injury and fall 3 days ago. Patient lives by herself and normally ambulates with the assistance of a cane. She just finished getting out of the shower and then slipped and fell onto her tailbone hitting the porcelain and landing backwards. Did not lose consciousness. Not any blood thinner medications. Endorses being able to get up after several attempts and has been going about her day for last 3 days without any issues but has been having some pain in her tailbone with certain movements especially with her left hip. Patient is concerned that she may have broken a bone. She denies any headache, vision changes, nausea, vomiting, chest pain, shortness a breath, abdominal pain or back pain. No extremity pain, no weakness or neuropathy in the legs. No sensory deficits. No loss of continence. She was otherwise in her normal state of health. Related Data Home Medications ?Medication ?Instructions ?Recorded ?Confirmed ?Last Taken ?Type cholecalciferol (vitamin D3) 50 2,000 unit PO DAILY 05/14/19 05/21/24 09/03/21 History mcg (2,000 unit) tablet (Vitamin D3) pyridoxine (vitamin B6) 100 mg 100 mg PO DAILY 03/02/21 05/21/24 09/03/21 History tablet brimonidine 0.2 % eye drops 1 drp EACH EYE BID 09/02/21 05/21/24 09/06/21 History cyanocobalamin (vitamin B-12) 1,000 mcg PO DAILY 09/14/21 05/21/24 Unknown History 1,000 mcg tablet multivitamin 1 tablet PO DAILY 09/14/21 05/21/24 Unknown History w-min#21-SJ-ahligcpm-lutein 2.8 mg-500 mcg-500 mcg tablet calcium citrate 1,200 mg PO DAILY 12/05/22 05/21/24 Unknown History jrwiglpb-qyj-[id number] 250 mg-dha 90 1 cap PO DAILY 12/05/22 05/21/24 Unknown History mg-epa 160 ls-cvce-naol-zeax capsule (Ocuvite Adult 50 Plus) docusate sodium 50 mg capsule 50 mg PO DAILY 08/09/23 05/21/24 Unknown History (Stool Softener) ibuprofen 200 mg tablet 200 mg PO Q6H PRN 08/09/23 05/21/24 Unknown History Allergies Allergy/AdvReac Type Severity Reaction Status Date / Time alendronate sodium (From AdvReac Intermediate upset Verified 06/14/24 20:23 Fosamax) stomach cephalexin AdvReac Unknown YEAST Verified 06/14/24 20:23 INFECTION meperidine AdvReac Unknown LOW BLOOD Verified 06/14/24 20:23 PRESSURE, N/V Review of Systems Review of Systems: As reviewed above in [facility] Past Medical History Medical History Cerebrovascular disease Chronic headache Cerebral cavernoma Prediabetes Anemia Low vitamin D level DVT (deep venous thrombosis) DVT prophylaxis Encephalopathy Trimalleolar fracture of ankle, closed Skin cancer Osteopenia Displaced trimalleolar fracture of left ankle Glaucoma Gastroesophageal reflux disease Hypertension Dysphagia Bimalleolar ankle fracture Bimalleolar avulsion fracture of left ankle Anosmia Arthritis High cholesterol Hearing loss Ankle arthritis Paresthesia Ankle arthralgia (~07/22/20) Osteoporosis Post-menopausal Vitamin D deficiency disease HTN (hypertension) Surgical History Surgical History History of open reduction and internal fixation (ORIF) procedure (09/06/21) Displaced left ankle trimalleolar fracture. History of benign breast biopsy History of laparoscopic cholecystectomy (08/2016) History of colonoscopy Internal hemorrhoids and diverticulosis. Status post trigger finger release (08/2009) Right 3rd finger. History of repair of hip fracture (09/2008) Internal fixation with gamma nail of a left intertrochanteric hip fracture. History of meniscectomy of right knee (08/2012) History of sacrocolpopexy (04/2014) For uterine prolapse. History of bilateral salpingo-oophorectomy (04/2014) History of abdominal supracervical subtotal hysterectomy (04/2014) History of total left hip arthroplasty Family History Family History Mother Family history of malignant neoplasm Family history of lymphoma, Onset Age: 81 Sibling Family history of diabetes mellitus in first degree relative Father Family history of pancreatic cancer, Onset Age: 58 Son Lung cancer Other Arthritis Cerebrovascular accident Diabetes mellitus Family history of lung cancer High cholesterol Hypertension Social History Social History Social History: Surrogate decision maker: Parker or Julieth Perez, and daughter. Code status: Full code. Smoking status: Never smoker Second hand tobacco smoke exposure: No Alcohol intake: never Substance use: never Substance use type: does not use Do You Feel Safe in your Home?: Yes Lack of Transportation: No Lack of Food: Never True Current Housing: I Have Housing Concerned About Future Housing: No Difficulty Paying Gas/Electric Bills: No Difficulty Paying for Meds: No Currently Unemployed: No Education: High School Diploma/GED Difficulty w/ Childcare or Family Care: No Living arrangements: with family Occupation/Education: retired Spiritual care concerns: No Exam Narrative: GENERAL: [Well-appearing, well-nourished, and in no acute distress.] HEAD: [Normocephalic, atraumatic.] EYES: [PERRLA and EOMI.] ENT: Nares clear, no rhinorrhea or epistaxis. Mucous membranes moist. NECK: Supple. CHEST: [Clear to auscultation. No respiratory distress.] HEART: [Regular rate and rhythm]. No murmur heard. [Normal peripheral pulses.] ABDOMEN: [Soft, nondistended], [nontender], [No rigidity or guarding] EXTREMITIES: Normal range of motion. [No edema.] There is focal tenderness to palpation over the coccyx and slightly over the left hip but no restricted range of motion. She has a positive left straight leg raise, negative right straight leg raise, EHL and FHL 5/5 strength, able to flex and extend at the hip, knee and ankles equally and symmetrically. No upper extremity injury. No spinal tenderness over the cervical, thoracic or lumbar region. No head injury. SKIN: Warm, dry, no rash. NEURO: [No focal deficits]. Alert and oriented [x3.] No incontinence. No saddle anesthesia. No weakness or numbness in the extremities. EHL and FHL 5/5 symmetric strength. Ambulates with a walker at baseline. PSYCH: [Normal mood and affect.] Course Vital Signs Vital signs: Vital Signs Temperature 36.4 C L 06/14/24 20:19 Pulse Rate 64 06/14/24 20:19 Respiratory Rate 18 06/14/24 20:19 Blood Pressure 155/89 H 06/14/24 20:19 Pulse Oximetry 96 06/14/24 20:19 Oxygen Delivery Room Air 06/14/24 20:19 Temperature 36.4 C L 06/14/24 20:19 Pulse Rate 60 06/15/24 01:40 Respiratory Rate 15 06/15/24 01:40 Blood Pressure 130/72 06/15/24 01:40 Pulse Oximetry 99 06/15/24 01:40 Oxygen Delivery Room Air 06/14/24 20:19 MDM - Fall MDM Narrative Medical decision making narrative: 83-year-old female presenting for evaluation of tailbone and left hip pain after a fall that seemed mechanical in nature 3 days ago. She finished showering then fell backwards into the bathtub landing on her tailbone and butt. She did not lose consciousness, did not strike her head, does not use blood thinners. She was able to get up and ambulate after having some assistance by her daughter. She has been going about her normal activities over last 3 days without any issues aside from some pain in her left side tailbone and hip. Positive left-sided straight leg raise. No neurological deficits, strength is symmetric in both legs. No saddle anesthesias, no incontinence. No red flag signs of cord injury. She is acting and mentating appropriately. No red flags for imaging of the head neck at this time. CT of the lumbar spine and hip was obtained, she was given ibuprofen for analgesia. Patient likely has a tailbone injury, bruised coccyx, less likely coccygeal fracture, less likely hip fracture or displaced fracture fragments. Will re-evaluated after analgesia and CT scan results. CT of the lumbar spine and left hip shows no acute osseous fractures. No displacement. No critical stenosis. Patient is safe for stable discharge home at this time. Patient ambulated in the ED without any difficulty. Medical Records Attestation: I reviewed the patient's medical records. Imaging Data Attestation: I personally reviewed and interpreted this imaging study as follows: Discharge Plan Discharge Clinical Impression: Tailbone injury, Ground-level fall Patient Disposition: Home, Self-Care Condition: Stable Instructions: Antibiotic Form Additional Instructions: Your CT scan shows no fractures or dislocations. Continue taking ibuprofen and Tylenol for aches and pains, follow-up with regular doctor. Return with any new concerns. Patient Language: Indonesian Prescriptions: No Action pyridoxine (vitamin B6) 100 mg tablet 100 mg PO DAILY calcium citrate 250 mg calcium tablet 1,200 mg PO DAILY Ocuvite Adult 50 Plus 250 mg (90 mg-160 mg) capsule 1 cap PO DAILY ibuprofen 200 mg tablet 200 mg PO Q6H PRN Stool Softener 50 mg capsule 50 mg PO DAILY trazodone 50 mg tablet 50 mg PO QHS Qty: 30 6RF Rx Instructions: start with half tablet at bedtime and may increase to 1 tablet after 3 days gabapentin 100 mg capsule 100 mg PO BID Qty: 90 4RF Rx Instructions: 1 capsule twice a day but may increase up to 1-3 capsule 2 to 3 times a day cholecalciferol (vitamin D3) [Vitamin D3] 2,000 unit tablet 2,000 unit PO DAILY Rx Instructions: take with water and meal metoprolol tartrate 100 mg tablet 150 mg PO BID Qty: 270 1RF lisinopril 40 mg tablet 40 mg PO DAILY Qty: 90 1RF brimonidine 0.2 % drops 1 drp EACH EYE BID cyanocobalamin (vitamin B-12) 1,000 mcg Tablet 1,000 mcg PO DAILY Rx Instructions: take with water and meal [id number] 2.8-500-500 mg-mcg-mcg Tablet 1 tablet PO DAILY Rx Instructions: take with food Follow-up/Referrals: Mora Canada MD [Primary Care Provider] - Time of Disposition: 01:30
[2024-06-14] MEDS: IBUPROFEN 600 MG TABLET PO (23:32)
[2024-06-15 00:13] VITALS: PULSE 59; RESP 15; O2SAT 97
[2024-06-15 01:40] VITALS: BP 130/72; PULSE 60; RESP 15; O2SAT 99
== END 2024-06-15 01:42 | disposition home or self-care (01) ==
PROVIDERS: Emergency Provider Student in an Organized Health Care Education/Training Program; PCP Family Medicine
DX: S39.92XA Unspecified injury of lower back, initial encounter (principal); I10 Essential (primary) hypertension; I67.9 Cerebrovascular disease, unspecified; E78.00 Pure hypercholesterolemia, unspecified; E55.9 Vitamin D deficiency, unspecified; H40.9 Unspecified glaucoma; R73.03 Prediabetes; M85.80 Other specified disorders of bone density and structure, unspecified site; M81.0 Age-related osteoporosis without current pathological fracture; M19.079 Primary osteoarthritis, unspecified ankle and foot; K21.9 Gastro-esophageal reflux disease without esophagitis; Z85.828 Personal history of other malignant neoplasm of skin; Z86.718 Personal history of other venous thrombosis and embolism; Z86.2 Personal history of diseases of the blood and blood-forming organs and certain disorders involving the immune mechanism; Z79.899 Other long term (current) drug therapy; W18.2XXA Fall in (into) shower or empty bathtub, initial encounter; M47.816 Spondylosis without myelopathy or radiculopathy, lumbar region; N20.0 Calculus of kidney
CPT/HCPCS: 72131; 73700; 99284; A9270

== ENCOUNTER 2024-09-18 16:37 | Outpatient (RCR) | payer MEDICARE, OTHER, SELFPAY ==
--- NOTE | 2024-09-18 18:01 | OPREHPOC ---
Outpatient Therapy Plan of Care This is a Multidisciplinary Plan of Care that may contain components documented by all disciplines (PT, OT, and ST.) PT Problem 1 PT Problem #1 Knowledge Deficit PT Goal 1 Goal / Goal Update Pt to verbalize and demonstrate understanding of HEP addressing L ankle mobility and strength. Target Visit 1 Progress Met
--- NOTE | 2024-09-18 18:01 | PTOPEVDC ---
Assessment and note entered by Regine Pham, PT Thank you for referring Taylor Perez to [facility].? An evaluation has been completed. No further treatment is needed. Evaluation Information Assessment Status Evaluation ICD-10 Condition Codes (PT) Pain in left ankle and joints of left foot M25.572 ,Difficulty Walking R26.2,Weakness R53.1 Onset 09/11/24 Subjective Information Pt reports she fell off a stool and broke her ankle in 3 places. She had surgery on it and went to PT and reports her ankle got better but now it' s gotten worse again. Per pt's doctor's order she has acquired flat foot over the years and pt reports her pain prevents her from walking and climbing stairs efficiently. Pt reports her surgeon wants her to get some ankle exercises to do at home. Reported Pain Level Pain Score 2: Self Report Assessment PT Clinical Summary Mrs. Perez is an 83 yo female referred to skilled PT for exercise prescription to improve ankle strength and mobility following previous ankle fracture and surgical fixation. Pt demonstrates limitations in active ankle ROM and gross L ankle strength, along with gait deficits such as excessive pronation during stance phase of gait. A home exercise program was developed with pt and her daughter addressing these limitations. Pt verbalized and demonstrated understanding with daughter observing. Educated pt and daughter to call with any questions. Plan of Care PT Services Indicated No Treatment Frequency and DC to independent HEP provided Duration
== END 2024-09-18 20:00 | disposition home or self-care (01) ==
LOC: CHSPT 16:37
PROVIDERS: Visit Provider Orthopaedic Surgery
DX: M76.822 Posterior tibial tendinitis, left leg (principal); M25.572 Pain in left ankle and joints of left foot; R26.2 Difficulty in walking, not elsewhere classified; R53.1 Weakness
CPT/HCPCS: 97110; 97161

== ENCOUNTER 2024-10-17 16:39 | Observation (INO) | payer MEDICARE, OTHER, SELFPAY ==
[2024-10-17] VITALS (15 sets, daily range): BP systolic 119–153; BP diastolic 68–128; PULSE 70–79; RESP 15–26; TEMP 37.1–37.6; O2SAT 93–98; BMI 24.9
--- NOTE | ~2024-10-17 | CT_ITS ---
History: Unsteady gait, Covid positive PROCEDURE: CT head without contrast. COMPARISON: None. Reference is made to an MRI examination of the brain performed 05/20/2024 TECHNIQUE: Axial imaging of the head performed from the skull base to the vertex without IV contrast. Sagittal a nd coronal reformations obtained. DLP: 681 mGy-cm FINDINGS: The ventricles are enlarged. The dilatation of the ventricles is proportional to the degree of sulcal prominence, not uncommon in the senescent brain. Decreased attenuation is identified within the periventricular white matter, likely secondary to micr ovascular ischemic disease, in a patient of this age. There is no mass, mass effect or midline shift. There is no abnormal extra-axial fluid collection or intracranial hemorrhage. Mucoperiosteal thickening within the bilateral ethmoid sinuses. Remaining paranasal sinuses are unremarkable. The mastoid air cells are well aerated. No acute displaced fractures within the overlying cranium. Impression: No acute intracranial hemorrhage or suspicious mass effect. Inflammatory sinus disease. Reviewed, dictated and finalized at location A. Impression: No acute intracranial hemorrhage or suspicious mass effect. Inflammatory sinus disease.
--- NOTE | ~2024-10-17 | XR_ITS ---
CHEST RADIOGRAPH CLINICAL HISTORY: weakness . COMPARISON: 04/04/2023 TECHNIQUE: Single portable view of the chest. FINDINGS The cardiomediastinal silhouette is enlarged, unchanged. The lungs are clear. IMPRESSION: No focal infiltrate or effusion. Reviewed, dictated and finalized at location A.
--- OUTSIDE RECORDS SUMMARY | 2024-10-17 16:42 | XMS_ITS | Continuity of Care Document ---
Author Organization [facility] [place] [address] [place] [address] Phone Care Team Providers Care Ad Clerk Name Role Phone Mc OD, Teo Unavailable Unavailable Procedures Procedure Date Cntct Lens Hydrophil Bifocal Medical Tax Contact Lens Check Contact Lens Check Contact Lens Check Office/outpatient Visit, Est Refraction Contact Lens Fit, Med Superv, Level 1 Au Visual Field Examination-Professional Ayana l-2009 Visual Field Examination(s) Office/outpatient Visit, Est No Script Fundus Photography W/ Report Visual Field Examination-Professional Ayana l--2008 Visual Field Examination(s) Eye Exam & Treatment Optic Nerve Head Eval IPO Reduced 15% No Script Refraction Office/outpatient Visit, Est Office/outpatient Visit, Est Fundus Photography W/ Report Visual Field Examination-Professional Ayana l-2006 Visual Field Examination(s) Office/outpatient Visit, Est Advance Directives Directive Yes / No Effective Date File Name No Information Encounters Encounter Description Practice Location Reason(s) For Visit Diagnoses Date Provider Providers Copied on Encounter [facility], [address], [place], [place], [address], tel:[phone] [facility] No Information Sep-2 2-201 0 Mc OD Teo. [address] [facility] , [address], [place], [address], [place]. tel:[phone] Referring Provider: Teo Mc OD A, [address] [facility] [address], [place], [address]. tel:[phone] [facility], [address] [place] [address] [address], [place], [place], [address], [place] tel:[phone] [facility] No Information Aug-2 7-201 0 Mc OD Teo. [address] [facility] , [address], [place], [address], [place]. tel:[phone] [facility], [address] [place] [address] [address], [place], [place], [address], [place] tel:[phone] [facility] No Information Aug-2 0-201 0 Mc OD Teo. [address] [facility] , [address], [place], [place], [facility], [place]. tel:[phone] [facility], [address] [place] [address] [address], [place], [place], [address], [place] tel:[phone] [facility] No Information Aug-1 3-201 0 Mc OD Teo. [address] [facility] , [address], [place], [place], [facility], [place]. tel:[phone] Office/outpat ient Visit, Est [facility], [address], [place], [place], [address], [place] tel:[phone] [facility] No Information Aug-0 5-201 0 Mc OD Teo. [address] [facility] , [address], [place], [address], [place]. tel:[phone] [facility], [address] [place] [address] [address], [place], [place], [address], [place] tel:[phone] [facility] No Information 2 6-201 0 Krishnasamy Arben. [address], [place], [address], [place]. tel:[phone] Referring Provider: Arben borden, [address], [place], [address]. tel:[phone] [facility], [address] [place] [address] [address], [place], [place], [address], [place] tel:[phone] [facility] No Information 0 9-201 0 Krishnasamy Arben. [facility] [address], [place], [facility], [place]. tel:[phone] Referring Provider: Arben borden, [address] [place], [place] [address]ate [facility] [address], [place], [place], [facility]. tel:[phone] Office/outpat ient Visit, [facility], [address] [place] [address] [address], [place], [place], [address], [place] tel:[phone] [facility] No Information 0 6-201 0 Krishnasamy Arben. [facility] [address], [place], [address], [place]. tel:[phone] Referring Provider: Arben borden, [facility] [address], [place], [facility]. tel:[phone] [facility], [address] [place] [address] [address], [place], [place], [address], [place] tel:[phone] [facility] No Information 0 8-200 9 Krishnasamy Arben. [address] [facility] [address], [place], [facility], [place]. tel:[phone] Referring Provider: Arben borden, [facility] [address], [place], [facility]. tel:[phone] [facility], [address], [place], [place], [address], [place] tel:[phone] [facility] No Information 0 6-200 9 Krishnasamy Arben. [address] [facility] [address], [place], [address], [place]. tel:[phone] Referring Provider: Arben borden, [address] [facility] [address], [place], [address]. tel:[phone] [facility], [address], [place], [place], [address], [place] tel:[phone] [facility] No Information 0 1-200 9 Krishnasamy Arben. [address], [address], [place]. tel:[phone] Office/outpat ient Visit, Est [facility], [address], [place], [place], [address], [place] tel:[phone] [facility] No Information 6-200 8 Krishnasamy Arben. [facility] [address], [place], [address], [place]. tel:[phone] Office/outpat ient Visit, Est [facility], [address], [place], [place], [address], [place] tel:[phone] [facility] No Information 1 5-200 7 Jina Kirby. [address] [facility] [place], [address], [place]. tel:[phone] Referring Provider: Kofi Sidhu, [address] [facility] [address], [place], [address] . tel:[phone] [facility], [address], [place], [place], [address], tel:[phone] [facility] No Information 0-200 7 Jina Kirby. [address] [facility] [place], [place], [address], . tel:[phone] Referring Provider: Kofi Sidhu, [address] [facility], [address] . tel:[phone] [facility], [address], [place], [place], [address], tel:[phone] [facility] No Information 4-200 7 Jina Kirby. [address] [facility], [facility] [place], [address], . tel:[phone] Referring Provider: Kofi Sidhu, [address] [place], [address] . tel:[phone] Office/outpat ient Visit, [facility], [address], [place], [place], [address], [place] tel:[phone] [facility] No Information 2-200 7 Jina Kirby. [address] [place], [place], [address], . tel:[phone] Family History Family Member Type Diagnosis Age At Onset No Information Payers Payer name Insurance type Covered republican ID Authoriza tion(s) No Information Social History Type Description Quantity Date Captured Comments Sex Female Smoking Status No Information Chief Complaint And Reason For Visit No Information Reason For Referral Reason For Referral No Information History Of Present Illness Encounter Date Complaint History Of Prese nt Illness No Information Functional Status Date Functional Assessmen t No Information Instructions Date Instruction Additional Infor mation No Information Assessments Type Assessment Date No Information Patient Care Teams Name Effective Dates (start - stop) Status Members No Information
--- OUTSIDE RECORDS SUMMARY | 2024-10-17 16:42 | XMS_ITS | Encounter Summary ---
Author Organization [facility] Address [address] [place] [address] Phone Care Team Providers Care Trade Sales Assistant Name Role Phone Mora Canada MD Primary Care Provider [phone] Mora Canada MD Unavailable [phone] Encounter Details Date Type Department Care Team (Late st Contact Info) Description 10/10/2024 Telephone [facility] General Neurology [facility] 6th [place] [address] [place] [address] Anika Perkins RN Social History Tobacco Use Types Packs/Day Years Used Date Smoking Tobacco: Former Cigarettes AUDIT-C Answer Date Recorded Q1: How often do you have a drink containing alc ohol? 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 Merritt- When EMGs are scheduled at [facility], they will need to know what extremities need to be tested. Would you please advise on this patient. She is scheduled next . Thanks, Anika Gómez [facility] stating she wasn't sure why the EMG was being done [phone] 10/17/24 [facility] documented in this encounter Plan of Treatment Not on file documented as of this encounter Visit Diagnoses Not on filedocumented in this encounter Care Teams Trade Sales Assistant Relationship Specialty Start Date End Date Mora Canada MD [address] [place] [place] [address] PCP - General Family Medicine 04/26/24 Mora Canada MD [address] [place] [address] Family Medicine 04/26/24 documented as of this encounter
--- OUTSIDE RECORDS SUMMARY | 2024-10-17 16:42 | XMS_ITS | Encounter Summary ---
Author Organization [facility] Address [address] [place] [address] Care Team Providers Care Plastering Supervisor Name Role Phone Mora Canada MD Primary Care Provider [phone] Mora Canada MD Unavailable Reason for Referral * MRI/CAT/PET Scan (Routine) - Closed Specialty Diagnoses / Procedures Referred By Contac t Referred To Contact Radiology Diagnoses Imbalance Sensory loss Procedures MRI Lumbar Spine WO Contrast Lars Merritt Jr., MD [address] [place] [address] Phone: tel: fax: [address] [address] Referral ID Status Reason Start Date Expiration Date Visits Re quested Visits Authorized [id number] Closed 09/19/2024 10/19/2025 1 1 Reason for Visit * MRI/CAT/PET Scan (Routine) - Closed Specialty Diagnoses / Procedures Referred By Contac t Referred To Contact Radiology Diagnoses Imbalance Sensory loss Procedures MRI Lumbar Spine WO Contrast Lars Merritt Jr., MD [address] [place] [address] Phone: tel: fax: [address] [place] [address] Referral ID Status Reason Start Date Expiration Date Visits Re quested Visits Authorized [id number] Closed 09/19/2024 10/19/2025 1 1 Encounter Details Date Type Department Care Team (Late st Contact Info) Description 10/17/2024 8:56 AM CDT Hospital Encounter [facility] [address] [place] [address] Imbalance; Sensory loss Social History Tobacco Use Types Packs/Day Years [...] on file 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 Gender Identity Female 02/17/2021 7:34 PM CDT Sexual Orientation Straight 02/17/2021 7: 34 PM CDT documented as of this encounter Plan of Treatment Not on file documented as of this encounter Procedures Procedure Name Priority Date/Time Associated Diagnosis Comments MRI LUMBAR SPINE WO CONTRAST Schedule Routine, Read Routine (OP Routine) 10/17/2024 10:18 AM CDT Imbalance Sensory loss documented in this encounter Results * MRI Lumbar Spine WO Contrast (10/17/2024 10:18 AM CDT) Anatomical Region Laterality Modality Spine N/A Magnetic Resonan ce 10/17/2024 1:16 PM CDT Narrative 10/17/2024 1:42 PM CDT EXAM DESCRIPTION: MRI LUMBAR SPINE WO CONTRAST REASON FOR STUDY: numbness and falls evaluation for myeloneuropathy Possible stroke. Numbness in legs and feet, mobility issues. Started about a year ago. TECHNIQUE: Sagittal and Axial imaging includes T1, T2, STIR sequences. COMPARISON: None available. FINDINGS: SEGMENTATION: Last well-formed disc space seen on series 19, image 35 to be labeled L5-S1. ALIGNMENT: Grade 1 retrolisthesis of T12 on L1 through L2 on L3. Grade 1 anterolisthesis of L3 on L4 and L4 on L5. VERTEBRAE: No acute compression fracture in the lumbar spine. Endplate degenerative changes ranging up to moderate to severe at L5-S1. Few scattered Schmorl's nodes. Rounded T1 and T2 hyperintense foci including in the L1 vertebral body in keeping with intraosseous hemangioma and/or focal fatty marrow. DISC HEIGHT: Diffuse disc desiccation and height loss ranging up to severe at L5-S1. HARDWARE: None in the spine. CORD/CAUDA: Conus medullaris terminates at L1. LOWER THORACIC: Incompletely imaged. Better assessed on the concurrently obtained thoracic spine MRI. INDIVIDUAL DISC LEVELS: L1-L2: Retrolisthesis of L1 on L2 with unroofing of the disc. Thickened ligamentum flavum and facet arthropathy. Flattening of the ventral thecal sac. Ykam-vcudrqc-djcp-right lateral recess effacement. Mild left and no significant right neural foraminal narrowing. L2-L3: Disc bulge with thickened ligamentum flavum and facet arthropathy. Mild spinal canal stenosis. No significant neural foraminal narrowing. L3-L4: Disc bulge and superimposed central disc protrusion. Thickened ligamentum flavum and facet arthropathy. Knnh-fd-qupfqymx spinal canal stenosis. No significant neural foraminal narrowing. L4-L5: Anterolisthesis of L4 on L5 with unroofing of the disc and marginal spur formation. Superimposed central disc protrusion or calcified disc. Thickened ligamentum flavum and facet arthropathy. Womc-wt-zbqgvhvi spinal canal stenosis. Byeeo-laoejft-jrbg-left lateral recess narrowing. No significant neural foraminal narrowing. L5-S1: Disc bulge with marginal spur formation. Superimposed central disc protrusion. Thickened ligamentum flavum and facet arthropathy. Mild spinal canal stenosis. Severe left and moderate right lateral recess narrowing with disc/marginal spur contacting the descending S1 nerve roots. Moderate to severe left and moderate right neural foraminal narrowing. Disc/marginal spur and facet arthropathy contacting the exiting L5 nerve roots. VISUALIZED UPPER ABDOMEN: Bilateral renal rounded T2 hyperintense lesions. The right renal posterior margin 0.8 cm focus has intrinsic T2 dark, T1 intermediate signal and does not meet criteria for simple cyst. OTHER: Partial fatty replacement/atrophy of the posterior paraspinal musculature. IMPRESSION: 1. Lumbar disc degeneration ranging up to moderate to severe with thickened ligamentum flavum and facet arthropathy as described. The spinal canal narrowing is most noticeable at L3-L4 and L4-L5. 2. Varying degrees of bilateral neural foraminal stenosis is most noticeable at L5-S1. 3. Lateral recess narrowing and other findings as above. 4. Right renal posterior cortex lesion with layering T2 dark debris does not meet criteria for a simple cyst. If this is a new finding for the patient then a contrast-enhanced renal protocol CT or MRI could be obtained. THIS IS AN ELECTRONICALLY VERIFIED FINAL REPORT 10/17/2024 1:42 PM - Electronically signed by Delfino Brooks D.O. AP: AP Report ID: [id number] Reading Location: [id number] Procedure Note Delfino Brooks, DO - 10/17/2024 EXAM DESCRIPTION: MRI LUMBAR SPINE WO CONTRAST REASON FOR STUDY: numbness and falls evaluation for myeloneuropathy Possible stroke. Numbness in legs and feet, mobility issues. Started abouta year ago. TECHNIQUE: Sagittal and Axial imaging includes T1, T2, STIR sequences. COMPARISON: None available. FINDINGS: SEGMENTATION: Last well-formed disc space seen on series 19, image 35 jocelyn labeled L5-S1. ALIGNMENT: Grade 1 retrolisthesis of T12 on L1 through L2 on L3. Grade1 anterolisthesis of L3 on L4 and L4 on L5. VERTEBRAE: No acute compression fracture in the lumbar spine. Endplate degenerative changes ranging up to moderate to severe at L5-S1. Fewscattered Schmorl's nodes. Rounded T1 and T2 hyperintense foci including in the L1 vertebral body in keeping with intraosseous hemangioma and/or focal fatty marrow. DISC HEIGHT: Diffuse disc desiccation and height loss ranging up tosevere at L5-S1. HARDWARE: None in the spine. CORD/CAUDA: Conus medullaris terminates at L1. LOWER THORACIC: Incompletely imaged. Better assessed on theconcurrently obtained thoracic spine MRI. INDIVIDUAL DISC LEVELS: L1-L2: Retrolisthesis of L1 on L2 with unroofing of the disc. Thickened ligamentum flavum and facet arthropathy. Flattening of the ventral thecal sac. Gwcv-jtmobxg-ltuq-right lateral recess effacement. Mild left and no significant right neural foraminal narrowing. L2-L3: Disc bulge with thickened ligamentum flavum and facet arthropathy. Mild spinal canal stenosis. No significant neural foraminal narrowing. L3-L4: Disc bulge and superimposed central disc protrusion. Thickened ligamentum flavum and facet arthropathy. Pjxe-fq-catoxwjn spinal canal stenosis. No significant neural foraminal narrowing. L4-L5: Anterolisthesis of L4 on L5 with unroofing of the disc and marginal spur formation. Superimposed central disc protrusion or calcified disc. Thickened ligamentum flavum and facet arthropathy. Xvnr-mq-mjxzcibehmpdsa canal stenosis. Xwvub-rcpdhwz-dpqk-left lateral recess narrowing. No significant neural foraminal narrowing. L5-S1: Disc bulge with marginal spur formation. Superimposed central disc protrusion. Thickened ligamentum flavum and facet arthropathy. Mildspinal canal stenosis. Severe left and moderate right lateral recess narrowingwith disc/marginal spur contacting the descending S1 nerve roots. Moderate to severe left and moderate right neural foraminal narrowing. Disc/marginalspur and facet arthropathy contacting the exiting L5 nerve roots. VISUALIZED UPPER ABDOMEN: Bilateral renal rounded T2 hyperintenselesions. The right renal posterior margin 0.8 cm focus has intrinsic T2 dark, T1 intermediate signal and does not meet criteria for simple cyst. OTHER: Partial fatty replacement/atrophy of the posterior paraspinal musculature. IMPRESSION: 1. Lumbar disc degeneration ranging up to moderate to severe withthickened ligamentum flavum and facet arthropathy as described. The spinal canal narrowing is most noticeable at L3-L4 and L4-L5. 2. Varying degrees of bilateral neural foraminal stenosis is mostnoticeable at L5-S1. 3. Lateral recess narrowing and other findings as above. 4. Right renal posterior cortex lesion with layering T2 dark debris doesnot meet criteria for a simple cyst. If this is a new finding for the patient then a contrast-enhanced renal protocol CT or MRI could be obtained. THIS IS AN ELECTRONICALLY VERIFIED FINAL REPORT 10/17/2024 1:42 PM - Electronically signed by Delfino Brooks D.O. AP: GIOVANNY Report ID: [id number] Reading Location: [id number] us Lars Merritt Jr., MD IMG MRI PROCEDURES Final Result documented in this encounter Visit Diagnoses Diagnosis Imbalance Abnormality of gait Sensory loss Disturbance of skin sensation documented in this encounter Care Teams Plastering Supervisor Relationship Specialty Start Date End Date Mora Canada MD [address] [place] [address] PCP - General Family Medicine 04/26/24 Mora Canada MD [address] [place] [address] Family Medicine 04/26/24 documented as of this encounter
--- OUTSIDE RECORDS SUMMARY | 2024-10-17 16:42 | XMS_ITS | Data Portability ---
Author Organization [facility] Address [address] [place] [address] Care Team Providers Care Fixture Repairer Fabricator Name Role Phone FAUSTO SALGADO Primary Care Provider Assessment Encounter Date Assessment Date Assessment LastModified by Organization Details LastModified Time 10/10/2019 10/10/2019 neoplasm - biopsy site: R lower back ddx: r/o BCC pt requests contacting her daughter, Julieth, with results when available. Seborrheic keratoses - diagnosis reviewed. Pt reassured. 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 Pt was reassured. Lentigo R cheek - diagnosis reviewed. Avoid sun exposure and use sun protection. hx inflammation lower eyelid margins discussed examination today clear rec f/u with opthalmology if recurs hx scalp dermatitis, currently resolved reassurance fbse pending path Not available 10/13/2019 22:06:48 01/21/2020 01/21/2020 BCC, R lower back cx3 1st pass 1.2cm tolerated well rtc fbse Not available 01/26/2020 22:20:00 Plan of Treatment Reminders Order Date Submit Date Provider Last Modified By Organization Details Last Modified Time Details Appointments None record ed. Lab pathol ogy, skin 020 10/10/19 20 [facility] (Pathology Department), [address], [place], [address], 0 12:55:36 Referral None record ed. Procedures None record ed. Surgeries None record ed. Imaging None record ed. Medication Orders None record ed. Patient TargetsNo targets recorded. Patient InstructionsNo instructions recorded. Reason for Referral None Reported. Results Created Date Observation Date Name Description Value Unit Range Abnormal Flag Note LastModifiedBy Organization Detail LastModifiedTime Result Notes None recorded. Problems Name Problem SNOMED Code Status Onset Date Resolution Date Notes Provider Name and Address Organization Details Recorded Time Basal cell carcinoma of skin 079262394 Active 020 09/2019 R lower back-c x3 Elba Harris MD [address] [facility], [address], [place], [address] [facility] MD 0 22:19:54 Problem Notes None recorded. Procedures Surgical History Date Name Laterality Status Provider Name and Address Organization Details Recorded Time 01/21/2020 cx3 completed Harsha Harris MD 01/21/2020 12:34:15 10/10/2019 Shave Biopsy single completed Jenny Harris MD 10/10/2019 12:25:34 Imaging Results None recorded. Procedure Notes None recorded. Medical Equipment None Reported. Allergies Allergen ID Allergen Name Allergen Category Reaction Reaction Severity Criticality Documentation Date Start Date Code Code System Note Provider Name and Address Organization Details Recorded Time 4506 Demerol medicatio n Not available Not available Not available 10/10/2019 40428 1 RxNorm [facility] MD 0 11:58:22 4507 Keflex medicatio n Not available Not available Not available 10/10/2019 77366 7 RxNorm [facility] MD 0 11:58:26 Medications Name Sig Start Date Stop Date Status Note LastModified by Organization Details LastModified Time quinapril 40 mg tablet active Not Available Not Available No t Available brimonidine 0.2 % eye drops INSTILL 1 DROP INTO AFFECTED EYE(S) BY OPHTHALMIC ROUTE EVERY 8 HOURS active Not Available Not Available No t Available metoprolol tartrate 50 mg tablet active Not Available Not Available No t Available Co Q-10 active Not Available Not Avail able Not Available calcium active Not Available Not Avail able Not Available ibuprofen active Not Available Not Rae ilable Not Available Stool Softener active Not Available Not Available Not Available Vitamin D3 active Not Available Not Av ailable Not Available multivitamin active Not Available Not Available Not Available Vitamin B12 active Not Available Not A vailable Not Available Vitals Date Recorded Body temperature Provider Name a nd Address Organization Details Last Updated DateTime 10/10/2019 98.3 [degF] Jennyvipul Escobedo [facility] 10/10/2019 12:01:04 Date Recorded Body temperature Provider Name a nd Address Organization Details Last Updated DateTime 01/21/2020 97.2 [degF] Harsha Manrique [facility] 01/21/2020 12:18:45 Social History Question Answer Notes LastModified by Organizat ion Details LastModified Time Tobacco Smoking Status Never Smoker [facility] MD 10/10/2019 12:01:18 In The 14 Days Before Symptom Onset, Have You Had Close Contact With A Laboratory-confirm ed COVID-19 While That Case Was Ill? No Information n ot available 10/10/2019 In The 14 Days Before Symptom Onset, Have You Had Close Contact With A Person Who Is Under Investigation For COVID-19 While That Person Was Ill? No Information not available 10/10/2019 Have You Been To An Area Known To Be High Risk For COVID-19? No Information not available 10/10/2019 Does Patient Have Any Fever, Cough, Sore Throat Or New Shortness Of Breath? No Information not available 10/10/2019 Sun Exposure Minimal Information not available 10/10/2019 Do You Use Sunscreen Routinely? No Information not available 10/10/2019 Tanning Bed Exposure No Information not available 10/10/2019 Sex: Unknown Functional Status Question Answer Note LastModified by Organization D etails LastModified Time What is your level of alcohol consumption? None Information not available 10/10/2019 Mental Status None recorded. Family History Nothing Reported. Medical History Condition Response Diabetes N Bleeding Disorder N Arthritis N Hyperthyroidism N Defibrillator N Cancer N Stroke N Asthma N Hypothyroidism N Lupus N HIV/AIDS N Pacemaker N Anemia N Psoriasis N Hepatitis N Heart Disease N Hypertension Y Gynecological HistoryNo gynecological history recorded. Obstetrics History GPAL:G 0 P 0 0 0 0 Past Encounters Encounter ID Performer Location Encounter Start Date Encounter Closed Date Diagnosis/Indication Diagnosis SNOMED-CT Code Diagnosis ICD10 Code Diagnosis Note [id number] Elba Harris MD Main Office [address] [facility] [address] [place] [address] 10/10/2019 11:43:41 10/10/2019 12:33:00 Neoplasm of uncertain behavior of skin 18106865 D48.5 Senile hyperkeratosis 39 6291686 L82.1 Telangiect kaykay of skin of face 911182213 I78.1 Lentigo 909979165 L81.4 [id number] Elba Harris MD Main Office [address] [facility] [address] [place] [address] 01/21/2020 12:04:09 01/21/2020 13:17:07 Basal cell carcinoma of truncal skin 200854210 C44.519 Health Concerns Section Related Observation LastModified by Organization Detai ls LastModified Time None Recorded Concern Status LastModified by Organization Details LastModified Time None Recorded Advance Directives Directive None Recorded Payers Insurance Date Sequence Insurance Name Policy Number Policy Aviles Covered Member ID Aviles Member ID Guarantor Name 01/18/2020 1 [place] Taylor Pablo Perez [id number] Taylor Perez 05/27/2020 2 [employer] (MEDICARE SUPPLEMENT) Taylor Perez [id number] Taylor Perez Notes Date Note Type Note Provider Name and Address Organization Details Recorded Time 10/10/2019 text/html COVID-19 savanah cherry. Pt waited in car prior to appt, called in for visit for checkin and rooming. Patient screening questions performed during call in car: No fever, cough, loss of taste or smell, or shortness of breath. Patient denies current diagnosis or pending testing of COVID-19 or recent exposure to any individual with known or current testing for COVID-19. Patient and staff masked for duration of visit. Full Body Check Pt has seen a Senior Construction Manager in the past-unknown name and she does not recall the treatments that have been preformed. Pt does mention that she had a surgery on her L cheek and a flap was cut.she is not sure if it was a skin cancer-but was a spot removed Rt forearmX this past yearWould get taller and then fall offGone at this time but has a scar/rough areaNo treatment also with spot in the scalp with scalingsince then it has gone away red areas on the nose and in front of the L cheek eyelids-sometimes gets sensitivity and irritation along the lower eyelid rough areas L neck and L shoulder brown area R cheek/in front of the R ear no other bleeding spots, changing moles, or sores that don't want to heal. Patient's completed past medical history form was reviewed.no f/c Elba Harris MD [address] [facility], [address], [place], [address], [facility] MD 10/13/2019 22:07:04 01/21/2020 text/html COVID-19 protoco l. Pt waited in car prior to appt, called in for visit for checkin and rooming. Patient screening questions performed during call in car: No fever, cough, loss of taste or smell, or shortness of breath. Patient denies current diagnosis or pending testing of COVID-19 or recent exposure to any individual with known or current testing for COVID-19. Patient and staff masked for duration of visit. curettage R lower back Elba Harris MD [address] [facility], [address], [place], [address], [facility] MD 01/26/2020 22:20:14 OBGyn Episode No OBEpisode recorded.
--- OUTSIDE RECORDS SUMMARY | 2024-10-17 16:42 | XMS_ITS | Clinical Summary ---
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 Name Role Phone Mora Canada MD Primary Care Provider [phone] Mora Canada MD Unavailable [phone] Allergies Active Allergy Reactions Criticality Noted Date Comments Cephalexin Unknown 02/19/2021 Meperidine Medications brimonidine (ALPHAGAN) 0.2 % ophthalmic solution brimonidine 0.2 % eye drops INSTILL 1 DROP INTO AFFECTED EYE(S) BY OPHTHALMIC ROUTE EVERY 8 HOURS Active quinapriL (ACCUPRIL) 40 mg tablet 1 Active coenzyme Q10 (Co Q-10) 10 mg capsule Co Q-10 Active multivit with minerals/lutein (MULTIVITAMIN 50 PLUS ORAL) multivitamin Act daphne cyanocobalamin 2,000 mcg tablet Vitamin B12 Active cholecalciferol (Vitamin D3) 400 unit capsule Vitamin D3 Active traZODone (DESYREL) 50 mg tablet TAKE ONE-HALF TABLET BY MOUTH ONCE DAILY AT BEDTIME FOR THREE DAYS THEN INCREASE TO ONE TABLET ONCE DAILY AT BEDTIME THEREAFTER 4 Active metoprolol (LOPRESSOR) 100 mg tablet TAKE 1 & 1/2 (ONE & ONE-HALF) TABLETS BY MOUTH TWICE DAILY 4 Active lisinopriL (PRINIVIL,ZESTR IL) 40 mg tablet Take 1 tablet (40 mg total) by mouth daily 4 Active gabapentin (NEURONTIN) 100 mg capsule TAKE 1 CAPSULE BY MOUTH TWICE DAILY BUT MAY INCREASE TO 1-3 CAPSULES 2-3 TIMES DAILY. 4 Active Active Problems Problem Noted Date Diagnosed Date Gastroesophageal reflux disease 08/07/2012 Hiatal hernia 08/07/2012 Difficulty in swallowing 08/07/2012 Dysphonia 02/23/2012 Encounters Date Type Department Care Team Description 10/17/2024 10:15 AM CDT Hospital Encounter [facility] Neurological Disorders Testing [address] [place] [id number] 10/17/2024 8:57 AM CDT Hospital Encounter [facility] [address] [place] [phone] Imbalance; Sensory loss 10/17/2024 8:56 AM CDT Hospital Encounter [facility] [address] [place] [address] Imbalance; Sensory loss 10/17/2024 8:56 AM CDT Hospital Encounter [facility] [address] [place] [id number] Imbalance; Sensory loss 10/10/2024 Telephone [facility] General Neurology [address] [facility] 6th [place] [address] [place] [phone] Anika Perkins RN 08/23/2024 7:27 AM CDT - 08/23/2024 11:59 PM CDT Hospital Encounter [address] [address] [place]mbalance; Sensory loss Discharge Disposition: Discharge to home or self care 08/21/2024 5:10 PM CDT Lab [facility] [address] [place] [phone] Imbalance; Sensory loss; Encounter for screening for diabetes mellitus 08/21/2024 12:30 PM CDT Office Visit [facility] General Neurology [address] [facility] 6th [address] [place] [phone] Lars Merritt Jr., MD Imbalance (Primary Dx); Chronic intractable headache, unspecified headache type; Sensory loss; Memory loss; Encounter for screening for diabetes mellitus 08/13/2024 Telephone [facility] Scheduling [facility] [place] [address] Trinh Castillo from Last 3 Months Immunizations Immunization Administration Dates Next Due Influenza, Quadrivalent, Hig h Dose, Preservative Free, Intrr 02/25/2020 Influenza, Trivalent, High D ose, Split, Preservative Free, Intramuscular 01/25/2019,02/01/2018 Pfizer SARS-CoV-2 Monovalent Vaccination (12+ Yrs) PURPLE 07/20/2020,06/28/2020 Pneumococcal Conjugate PCV 13 02/01/2018 Pneumococcal Polysaccharide PPV23 01/25/2019 Surgical History Surgery Date Site/Laterality Comments HIP FRACTURE SURGERY 10/08/2008 Left KNEE ARTHROPLASTY 04/17/2012 - 04/16/2013 Right CHOLECYSTECTOMY 04/17/2016 - 04/16/2017 ANKLE FRACTURE SURGERY HYSTERECTOMY Medical History Medical History Date Comments Hypertension Osteoporosis Pancreatitis 2016 Neuropathy Hearing loss Family History Medical History Relation Name Comments Diabetes Brother 1 Diabetes Brother 2 Pancreatic cancer Father Lymphoma Mother Hypertension Son Lung cancer Son Relation Name Status Comments Brother 1 Brother 2 Alive Daughter Alive Father Mother Son Social History Tobacco Use Types Packs/Day Years [...] on file Legal Sex Female 3:32 AM [employer] Gender Identity Female 02/17/2021 7:34 PM CDT Sexual Orientation Straight 02/17/2021 7: 34 PM CDT Obstetrics History Last Filed Vital Signs Vital Sign Reading Time Taken Comments Blood Pressure 151/83 08/21/2024 12:39 PM CDT Pulse 62 08/21/2024 12:39 PM CDT Temperature 36.8 C (98.2 F) 08/21/2024 12:39 PM CDT Respiratory Rate 16 02/19/2021 9:02 AM CDT Oxygen Saturation 96% 08/21/2024 12:39 PM CDT Inhaled Oxygen Concentration - - Weight 64.9 kg (143 lb) 08/21/2024 12:39 PM CDT Height 162.6 cm (5' 4) 08/21/2024 12:39 PM CDT Body Mass Index 24.55 08/21/2024 12:39 PM CDT Plan of Treatment Health Maintenance Due Date Last Done Comments Depression Screening 1940 Fall Risk Assessment 1940 Osteoporosis Screening-Bone Density Scan 1940 DTaP/Tdap/Td Vaccine (1 - Tdap) 12/25/1950 Hepatitis B Screening 12/25/1957 Zoster Vaccine (1 of 2) 12/25/1989 Well Visit 65+ 12/25/2004 Covid-19 Vaccine (3 - season) 12/17/202308/2020, 06/28/2020 Influenza Vaccine (#1) 2024 , 01/25/2019, 02/01/2018 Pneumococcal vaccine 65+ Completed 01/25/2019, 01/15 Procedures Procedure Name Priority Date/Time Associated Diagnosis Comments MRI LUMBAR SPINE WO CONTRAST Schedule Routine, Read Routine (OP Routine) 10/17/2024 10:18 AM CDT [place]mb[place] Sensory loss MRI THORACIC SPINE WO CONTRAST Schedule Routine, Read Routine (OP Routine) 10/17/2024 10:11 AM CDT [place] Sensory loss MRI CERVICAL SPINE WO CONTRAST Schedule Routine, Read Routine (OP Routine) 10/17/2024 10:11 AM CDT [place] Sensory loss CLINICAL PATHOLOGY REPORT Routine 08/23/2024 6:00 AM CDT IMMUNOFIXATION, URINE Routine 08/23/2024 6:00 AM CDT [place] Sensory loss VOLUME AND PERIOD, URINE, 24 HOUR Routine 08/23/2024 6:00 AM CDT [place] Sensory loss PROTEIN ELECTROPHORESIS, URINE, 24 HOUR RESULT Routine 08/23/2024 6:00 AM CDT [place] Sensory loss PROTEIN ELECTROPHORESIS, URINE, 24 HOUR WITH IMMUNOFIXATION Routine 08/23/2024 6:00 AM CDT [place] Sensory loss MYELOPEROXIDASE ANTIBODY Routine 08/21/2024 3:01 PM CDT [place] Sensory loss PROTEINASE-3 ANTIBODY Routine 08/21/2024 3:01 PM CDT [place] Sensory loss HEMOGLOBIN A1C Routine 08/21/2024 3:01 PM CDT [place] Sensory loss Encounter for screening for diabetes mellitus ANTI-NEUTROPHILIC CYTOPLASMIC ANTIBODY (ANCA) WITH REFLEX TO MPO AND PR3 ABS Routine 08/21/2024 3:01 PM CDT [place]mb[place] Sensory loss ANTI-DOUBLE STRANDED DNA ANTIBODIES Routine 08/21/2024 3:01 PM CDT [place] Sensory loss NICOLE QUALITATIVE WITH REFLEX TO NICOLE QUANTITATIVE Routine 08/21/2024 3:01 PM CDT [place] Sensory loss TSH Routine 08/21/2024 3:01 PM CDT [place] Sensory loss VITAMIN B12 Routine 08/21/2024 3:01 PM CDT [place] Sensory loss TREPONEMAL IGG/IGM Routine 08/21/2024 3: 01 PM CDT [place] Sensory loss from Last 3 Months Results * MRI Lumbar Spine WO Contrast [...] arthropathy. Flattening of the ventral thecal sac. Oggj-ywtafiy-ypxq-right lateral recess effacement. Mild left and no significant right neural foraminal narrowing. L2-L3: Disc bulge with thickened ligamentum flavum and facet arthropathy. Mild spinal canal stenosis. No significant neural foraminal narrowing. L3-L4: Disc bulge and superimposed central disc protrusion. Thickened ligamentum flavum and facet arthropathy. Sutt-hp-cppojspb spinal canal stenosis. No significant neural foraminal narrowing. L4-L5: Anterolisthesis of L4 on L5 with unroofing of the disc and marginal spur formation. Superimposed central disc protrusion or calcified disc. Thickened ligamentum flavum and facet arthropathy. Hmow-uq-nbkcauhb spinal canal stenosis. Ihecz-ycndfqe-jpmf-left lateral recess narrowing. No significant neural foraminal [...] Delfino Brooks D.O. AP: AP Report ID: [id number] Reading Location: [id number] Procedure Note Delfino Brooks, DO - 10/17/2024 [...] arthropathy. Flattening of the ventral thecal sac. Emzg-onbpbak-vdyx-right lateral recess effacement. Mild left and no significant right neural foraminal narrowing. L2-L3: Disc bulge with thickened ligamentum flavum and facet arthropathy. Mild spinal canal stenosis. No significant neural foraminal narrowing. L3-L4: Disc bulge and superimposed central disc protrusion. Thickened ligamentum flavum and facet arthropathy. Kjja-dx-dtjxvgyp spinal canal stenosis. No significant neural foraminal narrowing. L4-L5: Anterolisthesis of L4 on L5 with unroofing of the disc and marginal spur formation. Superimposed central disc protrusion or calcified disc. Thickened ligamentum flavum and facet arthropathy. Cuef-aw-owpxlrmhgdumdl canal stenosis. Vegtl-cvjtczo-cwvn-left lateral recess narrowing. No significant neural foraminal [...] 1:42 PM - Electronically signed by Delfino Boroks D.O. AP: GIOVANNY Report ID: [id number] Reading Location: [id number] Lars Merritt Jr., MD IMG MRI PROCEDURES Final Result * MRI Thoracic Spine WO Contrast (10/17/2024 10:11 AM CDT) Anatomical Region Laterality Modality Spine N/A Magnetic Resonan ce 10/17/2024 1:19 PM CDT Narrative 10/17/2024 1:36 PM CDT EXAM DESCRIPTION: MRI THORACIC SPINE WO CONTRAST REASON FOR STUDY: numbness and falls evaluation for myeloneuropathy Possible stroke. Numbness in legs and feet, mobility issues. Started about a year ago. TECHNIQUE: Sagittal and Axial imaging includes T1, T2, STIR and gradient echo sequences. COMPARISON: None available. FINDINGS: ALIGNMENT: Mild anterolisthesis of T1 on T2 and T2 on T3. Mild retrolisthesis of T12 on L1. VERTEBRAE: No acute compression fracture in the thoracic spine. Few scattered Schmorl's nodes. Tsqz-ij-fkehzdud endplate degenerative changes and marginal spur formation. Rounded T1 and T2 hyperintense foci including in the T4 and T6 vertebral bodies in keeping with intraosseous hemangioma. HARDWARE: None in the spine. CORD: The evaluation of the cord is limited by pulsation related artifact. No gross large T2 hyperintense cord signal alteration is reproduced on 2 separate sequences. THORACIC DISCS: T1-T2: Disc protrusion with thickened ligamentum flavum and facet arthropathy. No significant spinal canal or neural foraminal narrowing. T2-T3: Disc bulge with thickened ligamentum flavum and facet arthropathy. No significant spinal canal or neural foraminal narrowing. T6-T7: Posterior disc protrusion indents the left ventral thecal sac. Dorsal CSF cleft is maintained. No significant neural foraminal narrowing. T8-T9: Small cranial disc extrusion extending to the lower margin of T8. Bilateral facet arthropathy. No significant spinal canal or neural foraminal narrowing. T9-T10: Posterior disc protrusion eccentric to the right. No significant spinal canal or neural foraminal narrowing. T11-T12: Disc bulge with thickened ligamentum flavum and facet arthropathy. No significant spinal canal or neural foraminal narrowing. T12-L1: Disc bulge with bilateral facet arthropathy. No significant spinal canal or neural foraminal narrowing. SOFT TISSUES: Partially imaged probable hiatal hernia. LOWER CERVICAL: Incompletely imaged. Better assessed on the concurrently obtained cervical spine MRI. UPPER LUMBAR: Incompletely imaged. Better assessed on the concurrently obtained lumbar spine MRI. IMPRESSION: 1. Moed-pz-twumdlyy thoracic spine degenerative changes. No high-grade spinal canal or neural foraminal narrowing. 2. Other findings as above. THIS IS AN ELECTRONICALLY VERIFIED FINAL REPORT 10/17/2024 1:36 PM - Electronically signed by Delfino Brooks D.O. AP: AP Report ID: [id number] Reading Location: [id number] Procedure Note Delfino Brooks, DO - 10/17/2024 EXAM DESCRIPTION: MRI THORACIC SPINE WO CONTRAST REASON FOR STUDY: numbness and falls evaluation for myeloneuropathy Possible stroke. Numbness in legs and feet, mobility issues. Started abouta year ago. TECHNIQUE: Sagittal and Axial imaging includes T1, T2, STIR and gradientecho sequences. COMPARISON: None available. FINDINGS: ALIGNMENT: Mild anterolisthesis of T1 on T2 and T2 on T3. Mild retrolisthesis of T12 on L1. VERTEBRAE: No acute compression fracture in the thoracic spine. Few scattered Schmorl's nodes. Evqa-en-bpcujdec endplate degenerative changesand marginal spur formation. Rounded T1 and T2 hyperintense foci including inthe T4 and T6 vertebral bodies in keeping with intraosseous hemangioma. HARDWARE: None in the spine. CORD: The evaluation of the cord is limited by pulsation relatedartifact. No gross large T2 hyperintense cord signal alteration is reproduced on 2 separate sequences. THORACIC DISCS: T1-T2: Disc protrusion with thickened ligamentum flavum and facetarthropathy. No significant spinal canal or neural foraminal narrowing. T2-T3: Disc bulge with thickened ligamentum flavum and facet arthropathy.No significant spinal canal or neural foraminal narrowing. T6-T7: Posterior disc protrusion indents the left ventral thecal sac.Dorsal CSF cleft is maintained. No significant neural foraminal narrowing. T8-T9: Small cranial disc extrusion extending to the lower margin of T8. Bilateral facet arthropathy. No significant spinal canal or neuralforaminal narrowing. T9-T10: Posterior disc protrusion eccentric to the right. No significant spinal canal or neural foraminal narrowing. T11-T12: Disc bulge with thickened ligamentum flavum and facetarthropathy. No significant spinal canal or neural foraminal narrowing. T12-L1: Disc bulge with bilateral facet arthropathy. No significantspinal canal or neural foraminal narrowing. SOFT TISSUES: Partially imaged probable hiatal hernia. LOWER CERVICAL: Incompletely imaged. Better assessed on theconcurrently obtained cervical spine MRI. UPPER LUMBAR: Incompletely imaged. Better assessed on the concurrently obtained lumbar spine MRI. IMPRESSION: 1. Xknm-sg-aqqgiqzr thoracic spine degenerative changes. No high-grade spinal canal or neural foraminal narrowing. 2. Other findings as above. THIS IS AN ELECTRONICALLY VERIFIED FINAL REPORT 10/17/2024 1:36 PM - Electronically signed by Delfino Brooks D.O. AP: AP Report ID: [id number] Reading Location: [place] [address] Lars Merritt Jr., MD IMG MRI PROCEDURES Final Result * MRI Cervical Spine WO Contrast (10/17/2024 10:11 AM CDT) Anatomical Region Laterality Modality Spine N/A Magnetic Resonan ce 10/17/2024 1:12 PM CDT Narrative 10/17/2024 1:16 PM CDT EXAM DESCRIPTION: MRI CERVICAL SPINE WO CONTRAST REASON FOR STUDY: numbness and falls evaluation for myeloneuropathy Possible stroke. Numbness in legs and feet, mobility issues. Started about a year ago. TECHNIQUE: Sagittal and Axial imaging includes T1, T2, STIR and gradient echo sequences. COMPARISON: None available. FINDINGS: ALIGNMENT: Reversal of the normal cervical lordosis. Mild anterolisthesis of C2 on C3, C7 on T1 through T2 on T3. Mild retrolisthesis C4 on C5 through C6 on C7. No acute compression fracture in the cervical spine. If trauma is suspected then a CT has higher sensitivity for spinal fractures and can be obtained as clinically indicated. VERTEBRAE: Severe endplate degenerative changes and marginal spur formation from C3-C4 through C6-C7 and to a lesser extent the remainder of the cervical levels. Additional degenerative changes of the C1-C2 level. DISCS: Multilevel disc desiccation and height loss. HARDWARE: None in the spine. CORD: No definite T2 hyperintense cord signal alteration is reproduced on 2 separate sequences. INDIVIDUAL LEVELS: C2-C3: Anterolisthesis of C2 on C3 with unroofing of the disc. Thickened ligamentum flavum. No significant spinal canal stenosis. Uncovertebral spurring and facet arthropathy with adyp-vs-tahcmntw left and no significant right neural foraminal narrowing. C3-C4: Posterior disc osteophyte complex indents the ventral cord. Zmsw-ii-uahstfvh ventral spinal canal stenosis. Uncovertebral spurring and facet arthropathy with moderate to severe left and mild right neural foraminal narrowing. C4-C5: Posterior disc osteophyte complex flattens the ventral cord. Thickened ligamentum flavum. Beya-nt-vynqzdkc ventral spinal canal stenosis. Uncovertebral spurring and facet arthropathy with severe neural foraminal narrowing. C5-C6: Posterior disc osteophyte complex flattens the ventral cord. Thickened ligamentum flavum. Moderate spinal canal stenosis. Uncovertebral spurring and facet arthropathy with moderate to severe neural foraminal narrowing. C6-C7: Posterior disc osteophyte complex and thickened ligamentum flavum. Mild spinal canal stenosis. Uncovertebral spurring and facet arthropathy with mild neural foraminal narrowing. C7-T1: Anterolisthesis of C7 on T1 with unroofing of the disc. No significant spinal canal stenosis. Uncovertebral spurring and facet arthropathy with mild left and no significant right neural foraminal narrowing. UPPER THORACIC: Incompletely imaged. Better assessed on the concurrently obtained thoracic spine MRI. IMPRESSION: 1. 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 Spinal canal stenosis from C3-C4 through C6-C7. 2. Varying degrees of bilateral neural foraminal stenosis ranging up to moderate to severe and other findings as above. THIS IS AN ELECTRONICALLY VERIFIED FINAL REPORT 10/17/2024 1:16 PM - Electronically signed by Delfino Brooks D.O. AP: GIOVANNY Report ID: [id number] Reading Location: [id number] Procedure Note Delfino Brooks DO - 10/17/2024 EXAM DESCRIPTION: MRI CERVICAL SPINE WO CONTRAST REASON FOR STUDY: numbness and falls evaluation for myeloneuropathy Possible stroke. Numbness in legs and feet, mobility issues. Started abouta year ago. TECHNIQUE: Sagittal and Axial imaging includes T1, T2, STIR and gradientecho sequences. COMPARISON: None available. FINDINGS: ALIGNMENT: Reversal of the normal cervical lordosis. Mildanterolisthesis of C2 on C3, C7 on T1 through T2 on T3. Mild retrolisthesis C4 on G8tzjhhna C6 on C7. No acute compression fracture in the cervical spine. If traumais suspected then a CT has higher sensitivity for spinal fractures and can be obtained as clinically indicated. VERTEBRAE: Severe endplate degenerative changes and marginal spurformation from C3-C4 through C6-C7 and to a lesser extent the remainder of thecervical levels. Additional degenerative changes of the C1-C2 level. DISCS: Multilevel disc desiccation and height loss. HARDWARE: None in the spine. CORD: No definite T2 hyperintense cord signal alteration is reproducedon 2 separate sequences. INDIVIDUAL LEVELS: C2-C3: Anterolisthesis of C2 on C3 with unroofing of the disc. Thickened ligamentum flavum. No significant spinal canal stenosis. Uncovertebral spurring and facet arthropathy with dlpk-ag-pmusxxbv left and nosignificant right neural foraminal narrowing. C3-C4: Posterior disc osteophyte complex indents the ventral cord. Dvtv-ek-mycwwulf ventral spinal canal stenosis. Uncovertebral spurringand facet arthropathy with moderate to severe left and mild right neuralforaminal narrowing. C4-C5: Posterior disc osteophyte complex flattens the ventral cord.Thickened ligamentum flavum. Fkxs-cv-ibzjajbu ventral spinal canal stenosis. Uncovertebral spurring and facet arthropathy with severe neural foraminal narrowing. C5-C6: Posterior disc osteophyte complex flattens the ventral cord.Thickened ligamentum flavum. Moderate spinal canal stenosis. Uncovertebralspurring and facet arthropathy with moderate to severe neural foraminal narrowing. C6-C7: Posterior disc osteophyte complex and thickened ligamentum flavum. Mild spinal canal stenosis. Uncovertebral spurring and facet arthropathywith mild neural foraminal narrowing. C7-T1: Anterolisthesis of C7 on T1 with unroofing of the disc. Nosignificant spinal canal stenosis. Uncovertebral spurring and facet arthropathy withmild left and no significant right neural foraminal narrowing. UPPER THORACIC: Incompletely imaged. Better assessed on theconcurrently obtained thoracic spine MRI. IMPRESSION: 1. 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 Spinal canal stenosis fromC3-C4 through C6-C7. 2. Varying degrees of bilateral neural foraminal stenosis ranging up to moderate to severe and other findings as above. THIS IS AN ELECTRONICALLY VERIFIED FINAL REPORT 10/17/2024 1:16 PM - Electronically signed by Delfino Brooks D.O. AP: AP Report ID: [id number] Reading Location: [place] [address] Lars Merritt Jr., MD [facility] MRI PROCEDURES Final Result * Clinical pathology report (08/23/2024 6:00 AM CDT) Miscellaneous 08/23/2024 6:0 0 AM CDT 08/27/2024 8:47 AM CDT Narrative 08/27/2024 4:25 PM CDT EPIC results best viewed via link to PDF [facility] Department of Pathology [address] [place] [address] Final Report Note to Patients: This report may contain a detailed description of human tissue sent by a health care provider to the laboratory for pathologic evaluation. The content of this report is essential for diagnosis and may provide important critical findings. This information may be unfamiliar to patients to review without a medical professional present. It is advised that the patient review this report in the presence of a health care provider who can answer questions and explain the details. Patient Name: ALISON PEREZ Address: [address] [place] [id number] Gender: F : 1940 (Age: 83) Service: Location: [facility] #: [id number] Patient Type: [facility] SPECIMEN Taken: 08/23/2024 Received: 08/27/2024 Accessioned: 08/27/2024 Physician(s): Lars Merritt Jr., M.D. [facility] Specimen(s) Received A: Urine Urine Protein Electrophoresis with ImmunofixationReported:08/27/2024 Interpretation: Urine Protein Electrophoresis: Mild non-selective proteinuria. Urine Protein Immunofixation: Normal urine immunofixation study. Comment: Urine Protein Electrophoresis: Electrophoresis shows a mild non-selective proteinuria. Urine Protein Immunofixation: Examination of G, A and M heavy chains as well as kappa and lambda light chains reveals no evidence of abnormal bands. See Epic and/or separate report for protein fraction table. Ronald Smith MD PhDReport Electronically Reviewed and Signed Out By Ronald Smith MD PhD 08/27/2024 16:22:50 The performance characteristics of some immunohistochemical stains, fluorescence in-situ hybridization tests and immunophenotyping by flow cytometry cited in this report (if any) were determined by the Surgical Pathology Department at [facility] as part of an ongoing director quality assurance program and in compliance with federally mandated regulations drawn from the Clinical Laboratory Improvement Act of 1988 (CLIA '88). Some of these tests rely on the use of analyte specific reagents and are subject to specific labeling requirements by the US Food and Drug Administration. Such diagnostic tests may only be performed in a facility that is certified by the Department of Health and Human Services as a high complexity laboratory under CLIA '88. The FDA has determined that such clearance or approval is not necessary. This test is used for clinical purposes. It should not be regarded as investigational or for research. Nevertheless, federal rules concerning the medical use of analyte specific reagents require that the following disclaimer be attached to the report: This test was developed and its performance characteristics determined by the Surgical Pathology Department [facility]. It has not been cleared or approved by the U. S. Food and Drug Administration. REPORT IMAGES AND SCANNED DOCUMENTS, IF INCLUDED, ONLY VIEWABLE IN PDF VERSION OF REPORTe o us Lars Merritt Jr., MD LAB PATHOLOGY [facility] Final Result * Volume and period, urine, 24 hour (08/23/2024 6:00 AM CDT) Volume, ur 1,150 mL Period, Urine Collection 1,440 min [facility] ([facility]) Urine 08/23/2024 6:00 AM CDT 08/23/2024 2:16 PM CDT Lars Merritt Jr., MD LAB URINE ORDERABL ES Final Result [facility] (ANGEL) 1 [facility] [place] [address] * Protein electrophoresis, urine, 24 hour (08/23/2024 6:00 AM CDT) Protein, ur, quant 7.7 mg/dL Comment: No reference range established. Testing performed by: [address] [address] Albumin, Ur 25.2 % [facility] (ANGEL) Comment: No reference range established. Testing performed by: [address] [address] Alpha-1 globulin, Ur 35.2 % [facility] (ANGEL) Comment: No reference range established. Testing performed by: [address] [address] Alpha-2 globulin, Ur 16.5 % [facility] (ANGEL) Comment: No reference range established. Testing performed by: [address] [address] Beta globulin, Ur 13.1 % [facility] (ANGEL) Comment: No reference range established. Testing performed by: [address] [address] Gamma globulin, Ur 10.0 % [facility] (ANGEL) Comment: No reference range established. Testing performed by: [address] [address] UPEP interp See Cl Path Rpt [facility] (ANGEL) Comment:Testing performed by : [address], [address] Protein, 24 hr, ur 89 1 - 150 mg/24H [facility] (ANGEL) Comment:Testing performed by : [address] [address] Urine 08/23/2024 6:00 AM CDT 08/23/2024 3:48 PM CDT Lars Merritt Jr., MD LAB URINE ORDERABL ES Final Result Performing Organization Address [facility] de Phone Number [facility] (ANGEL) 1 [facility] [employer] [place] [address] * Immunofixation, urine with interpretation (08/23/2024 6:00 AM CDT) Immunofixation , Ur See Cl Path Rpt Comment:Testing performed by : [facility], [address] [place] [address], [address] Urine 08/23/2024 6:00 AM CDT 08/23/2024 3:48 PM CDT Lars Merritt Jr., MD LAB URINE ORDERABL ES Final Result Performing Organization Address [facility] de Phone Number [facility] ([place]) 1 [place] [address] * Treponemal IgG/IgM Blood (08/21/2024 3:01 PM CDT) Treponemal IgG/IgM Nonreactive Nonreactive Comment: Interpretive Data: If test is reported as EQUIVOCAL, a new sample should be drawn in two weeks for testing. Current interpretive data was last revised on 2018. Blood 08/21/2024 3:01 PM CDT 08/21/2024 3:40 PM CDT Lars Merritt Jr., MD LAB MICROBIOLOGY - GENERAL ORDERABLES Final Result Performing Organization Address [facility]/ZIP Co de Phone Number [facility] [place] [address] * (ABNORMAL) NICOLE ab ql w/rflx to NICOLE qn (08/21/2024 3:01 PM CDT) [facility] NICOLE Positive 1:320 Comment: Interpretive Data Normal range for NICOLE Qualitative Antibody = Negative. 1. NICOLE is performed using indirect immunofluorescence against HEp-2 cells 2. NICOLE titers are performed on all positive qualitative results. 3. A significantly positive NICOLE result is defined as a positive nuclear fluorescence at a titer of 1:80 or greater. 4. 15% of normal people above age 65 have significantly positive NICOLE results. 5% or less of normal people age 65 or under have significantly positive NICOLE results. Current interpretive data was last revised on 2019. NICOLE, quant 1:320 titer [facility] NICOLE, interp Homogeneous (A) [facility] Blood 08/21/2024 3:01 PM CDT 08/21/2024 3:39 PM CDT Lars Merritt Jr., MD LAB BLOOD ORDERABL ES Final Result Performing Organization Address [facility] de Phone Number [facility] Department of [employer] [place] [address] * Anti-double stranded DNA abs (08/21/2024 3:01 PM CDT) [facility] dsDNA Ab 1.0 <=4.0 IUnits/mL Comment: Interpretive Data Negative: < or = 4 IUnits/mL Indeterminate: 5 - 9 IUnits/mL Positive: > or = 10 IUnits/mL Current interpretive data was last revised on 2016. Blood 08/21/2024 3:01 PM CDT 08/21/2024 3:40 PM CDT Lars Merritt Jr., MD LAB BLOOD ORDERABL ES Final Result Performing Organization Address [facility] de Phone Number [facility] Department [place] [address] * PR3 - proteinase 3, Ab (08/21/2024 3:01 PM CDT) [facility] Proteinase 3 ab <0.2 <=0.9 Ab Index Comment: Interpretive Data Negative: <1 Ab Index Positive: > or = 1 Ab Index Current interpretive data was last revised on 2016. Blood 08/21/2024 3:01 PM CDT 08/21/2024 3:45 PM CDT Lars Merritt Jr., MD LAB BLOOD ORDERABL ES Final Result Performing Organization Address [facility] de Phone Number [facility] [place] [address] * MPO - myeloperoxidase antibody (08/21/2024 3:01 PM CDT) [facility] Myeloperoxidase ab <0.2 <=0.9 Ab Index Comment: Interpretive Data Negative: <1 Ab Index Positive: > or = 1 Ab Index Current interpretive data was last revised on 2016. Blood 08/21/2024 3:01 PM CDT 08/21/2024 3:45 PM CDT Lars Merritt Jr., MD LAB BLOOD ORDERABL ES Final Result Performing Organization Address [facility] de Phone Number [facility] Department [place] [address] * (ABNORMAL) Anti-Neutrophilic Cytoplasmic Antibody (ANCA) with Reflex to MPO and PR3 Abs (53:01 PM CDT) [facility] ANCA Indetermi rosa(A) Negative Comment:Indeterminate for P- ANCA - Results by antigen specific immunoassay (MPO & PR3) to follow. May indicate ulcerative colitis or Crohn's disease. Blood 08/21/2024 3:01 PM CDT 08/21/2024 3:45 PM CDT Lars Merritt Jr., MD LAB BLOOD ORDERABL ES Final Result Performing Organization Address [facility] de [facility] Number [facility] [employer] [place] [address] * TSH (08/21/2024 3:01 PM CDT) [facility] Thyroid Stimulating Hormone 2.18 0.30 - 4.20 mcIUnit/mL Blood 08/21/2024 3:01 PM CDT 08/21/2024 3:40 PM CDT Lars Merritt Jr., MD LAB BLOOD ORDERABL ES Final Result Performing Organization Address [facility] [place] [address] * (ABNORMAL) Hemoglobin A1c (08/21/2024 3:01 PM CDT) [facility] Hgb A1C 5.7(H) 4.0 - 5.6 % Estimated Average Glucose 117 mg/dL [facility] Comment: The ADA recommends reporting an estimated Average Glucose (eAG) with all Hemoglobin A1c results using the equation derived from a study of 507 normal and diabetic adults. Minority populations were underrepresented and children were not included. (Diabetes Care 2020; 43(S1): S66-S76). The eAG is not equivalent to a fasting glucose. Blood 08/21/2024 3:01 PM CDT 08/21/2024 3:40 PM CDT Lars Merritt Jr., MD LAB BLOOD ORDERABL ES Final Result Performing Organization Address [facility] de Phone Number [facility] [employer] [place] [address] * (ABNORMAL) Vitamin B12 (08/21/2024 3:01 PM CDT) [facility] Vitamin B12 >2,000(H) 230 - 1,250 pg/mL Blood 08/21/2024 3:01 PM CDT 08/21/2024 3:40 PM CDT us Lars Merritt Jr., MD LAB BLOOD ORDERABL ES Final Result [facility] Department [place] [address] from Last 3 Months Insurance MEDICARE MEDICARE MEDICARE COMMERCIAL GENERIC MEDICARE Care Teams Sorting Grapple Operator Relationship Specialty Start Date End Date Mora Canada MD [address] [place] [address] PCP - General Family Medicine 04/26/24 Mora Canada MD [address] [place] [address] Family Medicine 04/26/24
--- OUTSIDE RECORDS SUMMARY | 2024-10-17 16:42 | XMS_ITS | Encounter Summary ---
Author Organization [facility] Healthcare Address [address] [place] [address] Care Team Providers Care Automobile Or Truck Rental Dispatcher Name Role Phone Mora Canada MD Primary Care Provider [phone] Mora Canada MD Unavailable [phone] Reason for Referral * MRI/CAT/PET Scan (Routine) - Closed Specialty Diagnoses / Procedures Referred By Contac t Referred To Contact Radiology Diagnoses Imbalance Sensory loss Procedures MRI Cervical Spine WO Contrast Lars Merritt Jr., MD [address] [place] [address] Phone: tel: fax: [address] [phone] Referral ID Status Reason Start Date Expiration Date Visits Re quested Visits Authorized [id number] Closed 09/19/2024 10/19/2025 1 1 Reason for Visit * MRI/CAT/PET Scan (Routine) - Closed Specialty Diagnoses / Procedures Referred By Contac t Referred To Contact Radiology Diagnoses Imbalance Sensory loss Procedures MRI Cervical Spine WO Contrast Lars Merritt Jr., MD [address] [place] [address] Phone: tel: fax: [address] [place] [address] Referral ID Status Reason Start Date Expiration Date Visits Re quested Visits Authorized [id number] Closed 09/19/2024 10/19/2025 1 1 Encounter Details Date Type Department Care Team (Vane st Contact Info) Description 10/17/2024 8:56 AM CDT Hospital Encounter [facility] [address] [place] [address] Imbalance; Sensory loss Social History Tobacco Use [...] on file 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 Uncovertebral spurring and facet arthropathy with zclt-al-tfzcwydh left and no significant right neural foraminal narrowing. C3-C4: Posterior disc osteophyte complex indents the ventral cord. Bxdq-qk-amgqovvs ventral spinal canal stenosis. Uncovertebral spurring and facet arthropathy with moderate to severe left and mild right neural foraminal narrowing. C4-C5: Posterior disc osteophyte complex flattens the ventral cord. Thickened ligamentum flavum. Lrsq-pl-hbogkibi ventral spinal canal stenosis. Uncovertebral spurring and [...] Delfino Brooks D.O. AP: AP Report ID: [id number] Reading Location: [id number] Procedure Note Delfino Brooks, DO - 10/17/2024 EXAM DESCRIPTION: MRI CERVICAL [...] T2 on T3. Mild retrolisthesis C4 on Y3sqjquar C6 on C7. No acute compression fracture [...] stenosis. Uncovertebral spurring and facet arthropathy with rrzm-sk-fxigzrwr left and nosignificant right neural foraminal narrowing. C3-C4: Posterior disc osteophyte complex indents the ventral cord. Yuig-nz-fyiyrsmf ventral spinal canal stenosis. Uncovertebral spurringand facet arthropathy with moderate to severe left and mild right neuralforaminal narrowing. C4-C5: Posterior disc osteophyte complex flattens the ventral cord.Thickened ligamentum flavum. Llky-ed-xjuarymb ventral spinal canal stenosis. Uncovertebral spurring and [...] Delfino Brooks D.O. AP: AP Report ID: [id number] Reading Location: [place] [address] Lars Merritt Jr., MD IMG MRI PROCEDURES Final Result documented in this encounter Visit Diagnoses Diagnosis Imbalance Abnormality of gait Sensory loss Disturbance of skin sensation documented in this encounter Care Teams Automobile Or Truck Rental Dispatcher Relationship Specialty Start Date End Date Mora Canada MD [address] [place] [address] PCP - General Family Medicine 04/26/24 Mora Canada MD [address] [place] [address] Family Medicine 04/26/24 documented as of this encounter
--- OUTSIDE RECORDS SUMMARY | 2024-10-17 16:42 | XMS_ITS | Encounter Summary ---
Author Organization [facility] Healthcare Address [address] [place] [address] Care Team Providers Care Soda Dry House Operator Name Role Phone Mora Canada MD Primary Care Provider [phone] Mora Canada MD Unavailable [phone] Reason for Referral * MRI/CAT/PET Scan (Routine) - Closed Specialty Diagnoses / Procedures Referred By Contac t Referred To Contact Radiology Diagnoses Imbalance Sensory loss Procedures MRI Thoracic Spine WO Contrast Lars Merritt Jr., MD [address] [place] [address] Phone: tel: fax: [address] [phone] Referral ID Status Reason Start Date Expiration Date Visits Re quested Visits Authorized [id number] Closed 09/19/2024 10/19/2025 1 1 Reason for Visit * MRI/CAT/PET Scan (Routine) - Closed Specialty Diagnoses / Procedures Referred By Contac t Referred To Contact Radiology Diagnoses Imbalance Sensory loss Procedures MRI Thoracic Spine WO Contrast Lars Merritt Jr., MD [address] [place] [address] Phone: tel: fax: [address] [place] [phone] Referral ID Status Reason Start Date Expiration Date Visits Re quested Visits Authorized [id number] Closed 09/19/2024 10/19/2025 1 1 Encounter Details Date Type Department Care Team (Late st Contact Info) Description 10/17/2024 8:57 AM CDT Hospital Encounter [facility] [address] [place] [address] Imbalance; Sensory loss Social History Tobacco Use [...] on file 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 Few scattered Schmorl's nodes. Zwuu-lp-judfyugi endplate degenerative changes and marginal spur formation. [...] concurrently obtained lumbar spine MRI. IMPRESSION: 1. Jzms-tr-sfqsoepy thoracic spine degenerative changes. No high-grade spinal canal or neural foraminal narrowing. 2. Other findings as above. THIS IS AN ELECTRONICALLY VERIFIED FINAL REPORT 10/17/2024 1:36 PM - Electronically signed by Delfino Brooks D.O. AP: AP Report ID: [id number] Reading Location: [id number] Procedure Note Delfino Brooks, DO - 10/17/2024 [...] the thoracic spine. Few scattered Schmorl's nodes. Zoqb-tc-rkvmirde endplate degenerative changesand marginal spur formation. Rounded [...] concurrently obtained lumbar spine MRI. IMPRESSION: 1. Uvqh-lw-odacfczm thoracic spine degenerative changes. No high-grade spinal canal or neural foraminal narrowing. 2. Other findings as above. THIS IS AN ELECTRONICALLY VERIFIED FINAL REPORT 10/17/2024 1:36 PM - Electronically signed by Delfino Brooks D.O. AP: AP Report ID: [id number] Reading Location: [id number] Lars Merritt Jr., MD IM MRI PROCEDURES Final Result documented in this encounter Visit Diagnoses Diagnosis Imbalance Abnormality of gait Sensory loss Disturbance of skin sensation documented in this encounter Care Teams Soda Dry House Operator Relationship Specialty Start Date End Date Mora Canada MD [address] [place], [place] [id number] PCP - General Family Medicine 04/26/24 Mora Canada MD [address] [place] [address] Family Medicine 04/26/24 documented as of this encounter
--- OUTSIDE RECORDS SUMMARY | 2024-10-17 16:42 | XMS_ITS | Referral Summary ---
Author Organization [facility] Address [address] [place] [address] Care Team Providers Care Tripe Scraper Name Role Phone Mora Canada MD Primary Care Provider [phone] Mora Canada MD Unavailable [phone] Encounters Date Type Department Care Team Description 10/17/2024 10:15 AM CDT Hospital Encounter [facility] Neurological Disorders Testing [address] [place] [address] 10/17/2024 8:56 AM CDT Hospital Encounter [facility] [address] [place] [address] Imbalance; Sensory loss 10/17/2024 8:57 AM CDT Hospital Encounter [facility] [address] [place] [address] Imbalance; Sensory loss 10/17/2024 8:56 AM CDT Hospital Encounter [facility] [address] [place] [address] Imbalance; Sensory loss 10/10/[address] [facility] General Neurology [address] [facility] 6th [place] [address] [place] [address] Anika Perkins RN 08/23/2024 7:27 AM CDT - 08/23/2024 11:59 PM CDT Hospital Encounter [address] [address] Imbalance; Sensory loss Discharge Disposition: Discharge to home or self care 08/21/2024 5:10 PM CDT Lab [facility] [address] [place] [address] Imbalance; Sensory loss; Encounter for screening for diabetes mellitus 08/21/2024 12:30 PM CDT Office Visit [facility] General Neurology [address] [facility] 6th [address] [place] [address] Lars Merritt Jr., MD Imbalance (Primary Dx); Chronic intractable headache, unspecified headache type; Sensory loss; Memory loss; Encounter for screening for diabetes mellitus 08/13/[address] [facility] Scheduling [address] [place] [address] Trinh Castillo from Last 3 Months Allergies Active Allergy Reactions Criticality Noted Date [...] 08/07/2012 Difficulty in swallowing 08/07/2012 Dysphonia 02/23/2012 Immunizations Immunization Administration Dates Next Due Influenza, Quadrivalent, Hig h Dose, Preservative Free, Intrr 02/25/2020 Influenza, Trivalent, High D ose, Split, Preservative Free, Intramuscular 01/25/2019,02/01/2018 Pfizer SARS-CoV-2 Monovalent Vaccination (12+ Yrs) PURPLE 07/20/2020,06/28/2020 Pneumococcal Conjugate PCV 13 02/01/2018 Pneumococcal Polysaccharide PPV23 01/25/2019 Social History Tobacco Use Types Packs/Day Years [...] on file 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 Flattening of the ventral thecal sac. Aelv-dtvpluy-zxon-right lateral recess effacement. Mild left and no significant right neural foraminal narrowing. L2-L3: Disc bulge with thickened ligamentum flavum and facet arthropathy. Mild spinal canal stenosis. No significant neural foraminal narrowing. L3-L4: Disc bulge and superimposed central disc protrusion. Thickened ligamentum flavum and facet arthropathy. Wxdl-mx-nvtdjnzc spinal canal stenosis. No significant neural foraminal narrowing. L4-L5: Anterolisthesis of L4 on L5 with unroofing of the disc and marginal spur formation. Superimposed central disc protrusion or calcified disc. Thickened ligamentum flavum and facet arthropathy. Ugxn-fz-oszajkmi spinal canal stenosis. Uolip-dokzckd-xqcj-left lateral recess narrowing. No significant neural foraminal [...] Delfino Brooks D.O. AP: AP Report ID: [id number] Reading Location: [id number] Procedure Note Delfino Brooks, DO - 10/17/2024 [...] arthropathy. Flattening of the ventral thecal sac. Xvcy-dbcgqsl-xwaz-right lateral recess effacement. Mild left and no significant right neural foraminal narrowing. L2-L3: Disc bulge with thickened ligamentum flavum and facet arthropathy. Mild spinal canal stenosis. No significant neural foraminal narrowing. L3-L4: Disc bulge and superimposed central disc protrusion. Thickened ligamentum flavum and facet arthropathy. Ywjg-og-txlkjrng spinal canal stenosis. No significant neural foraminal narrowing. L4-L5: Anterolisthesis of L4 on L5 with unroofing of the disc and marginal spur formation. Superimposed central disc protrusion or calcified disc. Thickened ligamentum flavum and facet arthropathy. Rhth-oc-ryaokxxxkhwnfw canal stenosis. Ceqip-cklnwle-tfup-left lateral recess narrowing. No significant neural foraminal [...] Delfino Brooks D.O. AP: AP Report ID: [id number] Reading Location: [place] [address] Lars Merritt Jr., MD IMG MRI PROCEDURES [...] the thoracic spine. Few scattered Schmorl's nodes. Ufgv-gj-rcmfqmnd endplate degenerative changes and marginal spur formation. [...] concurrently obtained lumbar spine MRI. IMPRESSION: 1. Gjlo-fu-nwgojqxt thoracic spine degenerative changes. No high-grade spinal canal or neural foraminal narrowing. 2. Other findings as above. THIS IS AN ELECTRONICALLY VERIFIED FINAL REPORT 10/17/2024 1:36 PM - Electronically signed by Delfino Brooks D.O. AP: AP Report ID: [id number] Reading Location: [id number] Procedure Note Delfino Brooks, DO - 10/17/2024 [...] the thoracic spine. Few scattered Schmorl's nodes. Eqoa-hc-oaeyeovv endplate degenerative changesand marginal spur formation. Rounded [...] concurrently obtained lumbar spine MRI. IMPRESSION: 1. Zrth-to-irsdrwwu thoracic spine degenerative changes. No high-grade spinal canal or neural foraminal narrowing. 2. Other findings as above. THIS IS AN ELECTRONICALLY VERIFIED FINAL REPORT 10/17/2024 1:36 PM - Electronically signed by Delfino Brooks D.O. AP: AP Report ID: [id number] Reading Location: [place] [address] Lars Merritt Jr., MD [facility] MRI PROCEDURES Final Result * MRI Cervical [...] stenosis. Uncovertebral spurring and facet arthropathy with rabs-ew-byxjcxcd left and no significant right neural foraminal narrowing. C3-C4: Posterior disc osteophyte complex indents the ventral cord. Vkkh-nm-djfhdunl ventral spinal canal stenosis. Uncovertebral spurring and facet arthropathy with moderate to severe left and mild right neural foraminal narrowing. C4-C5: Posterior disc osteophyte complex flattens the ventral cord. Thickened ligamentum flavum. Kcca-jv-yvhdukxv ventral spinal canal stenosis. Uncovertebral spurring and [...] Delfino Brooks D.O. AP: AP Report ID: [id number] Reading Location: [id number] Procedure Note Delfino Brooks, DO - 10/17/2024 [...] T2 on T3. Mild retrolisthesis C4 on N2agqegcb C6 on C7. No acute compression fracture [...] stenosis. Uncovertebral spurring and facet arthropathy with awzd-sh-ybxigytt left and nosignificant right neural foraminal narrowing. C3-C4: Posterior disc osteophyte complex indents the ventral cord. Pqdo-mk-yqacuncv ventral spinal canal stenosis. Uncovertebral spurringand facet arthropathy with moderate to severe left and mild right neuralforaminal narrowing. C4-C5: Posterior disc osteophyte complex flattens the ventral cord.Thickened ligamentum flavum. Sxwd-ix-njtjkmda ventral spinal canal stenosis. Uncovertebral spurring and [...] Delfino Brooks D.O. AP: AP Report ID: [id number] Reading Location: [id number] Lars Merritt Jr., MD IM MRI PROCEDURES Final Result * Clinical pathology report (08/23/2024 6:00 AM CDT) Miscellaneous 08/23/2024 6:0 0 AM CDT 08/27/2024 8:47 AM CDT Narrative 08/27/2024 4:25 PM CDT [facility] results best viewed via link to PDF [facility] Department of Pathology [address] [place] [address] Final Report Note to Patients: This report [...] the details. Patient Name: ALISON PEREZ Address: [address] [place] [id number] Gender: F : 1940 (Age: 83) Service: Location: N : [id number] Hospital #: [id number] Patient Type: [facility] SPECIMEN Taken: 08/23/2024 Received: 08/27/2024 Accessioned: 08/27/2024 Physician(s): Lars Merritt Jr., M.D. [facility] Specimen(s) Received A: Urine Urine Protein [...] determined by the Surgical Pathology Department at [facility] as part of an ongoing quality improvement specialist program and in compliance with federally mandated [...] characteristics determined by the Surgical Pathology Department [facility]. It has not been cleared or approved by the U. S. Food and Drug Administration. REPORT IMAGES AND SCANNED DOCUMENTS, IF INCLUDED, ONLY VIEWABLE IN PDF VERSION OF REPORTe o Lars Merritt Jr., MD LAB PATHOLOGY [place] [place] Final Result * Volume and period, urine, 24 hour (08/23/2024 6:00 AM CDT) Volume, ur 1,150 mL Period, Urine Collection 1,440 min ASIYA COLE) Urine 08/23/2024 6:0 0 AM CDT 08/23/2024 2:16 PM CDT Lars Merritt Jr., MD LAB URINE ORDERABL ES Final Result ASIYA COTTON (CANJILON) 1 [facility] Department [place] [address] * Protein electrophoresis, urine, 24 hour (08/23/2024 6:00 AM CDT) Protein, ur, quant 7.7 mg/dL Comment: No reference range established. Testing performed by: [facility], [address] [place] [address], [place]., [address] Albumin, Ur 25.2 % ASIYA Sidhu (ANGEL) Comment: No reference range established. Testing performed by: [facility], [address] [place] [address], [place]., [address] Alpha-1 globulin, Ur 35.2 % ASIYA COTTON (ANGEL) Comment: No reference range established. Testing performed by: [facility], [address] [place] [address]., [address] Alpha-2 globulin, Ur 16.5 % [facility] (ANGEL) Comment: No reference range established. Testing performed by: [facility], [address] [place] [address]., [address] Beta globulin, Ur 13.1 % [facility] (ANGEL) Comment: No reference range established. Testing performed by: [facility], [address] [place] [address]., [address] Gamma globulin, Ur 10.0 % [facility] (ANGEL) Comment: No reference range established. Testing performed by: [facility], [address] [place] [address], [address] UPEP interp See Cl Path Rpt [facility] (ANGEL) Comment:Testing performed by : [facility], [address] [place] [address], [address] Protein, 24 hr, ur 89 1 - 150 mg/24H [facility] (ANGEL) Comment:Testing performed by : [facility], [address] [place] [address], [id number] Urine 08/23/2024 6:00 AM CDT 08/23/2024 3:48 PM CDT Lars Merritt Jr., MD LAB URINE ORDERABL ES Final Result Performing Organization Address [facility]/ZIP Co de Phone Number ASIYA COTTON (ANGEL) 1 [facility] [place] [address] * Immunofixation, urine with interpretation (08/23/2024 6:00 AM CDT) Immunofixation , Ur See Cl Path Rpt Comment:Testing performed by : [facility], [address] [place] [address]., [address] Urine 08/23/2024 6:00 AM CDT 08/23/2024 3:48 PM CDT Lars Merritt Jr., MD LAB URINE ORDERABL ES Final Result Performing Organization Address City/[facility]/ZIP Co de Phone Number ASIYA COTTON (ANGEL) [address] Department [place] [address] * Treponemal IgG/IgM Blood (08/21/2024 3:01 PM CDT) Pathologist [facility] Treponemal IgG/IgM Nonreactive Nonreactive Comment: Interpretive Data: If test is reported as EQUIVOCAL, a new sample should be drawn in two weeks for testing. Current interpretive data was last revised on 2018. Blood 08/21/2024 3:01 PM CDT 08/21/2024 3:40 PM CDT Lars Merritt Jr., MD LAB MICROBIOLOGY - GENERAL ORDERABLES Final Result Performing Organization Address City/[facility]/[place] [address] * (ABNORMAL) NICOLE ab ql w/rflx to NICOLE qn (08/21/2024 3:01 PM CDT) Pathologist [facility] NICOLE Positive 1:320 Comment: Interpretive Data Normal [...] revised on 2019. NICOLE, quant 1:320 titer [facility] NICOLE, interp Homogeneous (A) [facility] Blood 08/21/2024 3:01 PM CDT 08/21/2024 3:39 PM CDT Lars Merritt Jr., MD LAB BLOOD ORDERABL ES Final Result Performing Organization Address City/[facility]/ZIP Co de Phone Number [facility] [place] [address] * Anti-double stranded DNA abs (08/21/2024 3:01 PM CDT) Pathologist [facility] dsDNA Ab 1.0 <=4.0 IUnits/mL Comment: Interpretive Data Negative: < or = 4 IUnits/mL Indeterminate: 5 - 9 IUnits/mL Positive: > or = 10 IUnits/mL Current interpretive data was last revised on 2016. Blood 08/21/2024 3:01 PM CDT 08/21/2024 3:40 PM CDT Lars Merritt Jr., MD LAB BLOOD ORDERABL ES Final Result Performing Organization Address [facility] Co de Phone Number [facility] Department of [facility] [place] [address] * PR3 - proteinase 3, Ab (08/21/2024 3:01 PM CDT) [facility] Proteinase 3 ab <0.2 <=0.9 Ab Index Comment: Interpretive Data Negative: <1 Ab Index Positive: > or = 1 Ab Index Current interpretive data was last revised on 2016. Blood 08/21/2024 3:01 PM CDT 08/21/2024 3:45 PM CDT Lars Merritt Jr., MD LAB BLOOD ORDERABL ES Final Result Performing Organization Address [facility] Co de Phone Number [facility] Department of [facility] [place] [address] * MPO - myeloperoxidase antibody (08/21/2024 3:01 PM CDT) [facility] Myeloperoxidase ab <0.2 <=0.9 Ab Index Comment: Interpretive Data Negative: <1 Ab Index Positive: > or = 1 Ab Index Current interpretive data was last revised on 2016. Blood 08/21/2024 3:01 PM CDT 08/21/2024 3:45 PM CDT Lars Merritt Jr., MD LAB BLOOD ORDERABL ES Final Result Performing Organization Address [facility] de Phone Number [facility] [place] [address] * (ABNORMAL) Anti-Neutrophilic Cytoplasmic Antibody (ANCA) with Reflex to MPO and PR3 Abs (53:01 PM CDT) [facility] ANCA Indetermi rosa(A) Negative Comment:Indeterminate for P- ANCA - Results by antigen specific immunoassay (MPO & PR3) to follow. May indicate ulcerative colitis or Crohn's disease. Blood 08/21/2024 3:01 PM CDT 08/21/2024 3:45 PM CDT Lars Merritt Jr., MD LAB BLOOD ORDERABL ES Final Result Performing Organization Address [facility] de Phone Number [facility] [place] [address] * TSH (08/21/2024 3:01 PM CDT) [facility] Thyroid Stimulating Hormone 2.18 0.30 - 4.20 mcIUnit/mL Blood 08/21/2024 3:01 PM CDT 08/21/2024 3:40 PM CDT Lars Merritt Jr., MD LAB BLOOD ORDERABL ES Final Result Performing Organization Address [facility] de Phone Number [facility] [place] [address] * (ABNORMAL) Hemoglobin A1c (08/21/2024 3:01 PM CDT) [facility] Hgb A1C 5.7(H) 4.0 - 5.6 % Estimated Average Glucose 117 mg/dL [facility] Comment: The ADA recommends reporting an estimated [...] ORDERABL ES Final Result Performing Organization Address City/[facility] Co de Phone Number ASIYA [facility] Department [place] [address] * (ABNORMAL) Vitamin B12 (08/21/2024 3:01 PM CDT) Pathologist [facility] Vitamin B12 >2,000(H) 230 - 1,250 pg/mL Blood 08/21/2024 3:01 PM CDT 08/21/2024 3:40 PM CDT Lars Merritt Jr., MD LAB BLOOD ORDERABL ES Final Result Performing Organization Address City/[facility] de Phone Number ASIYA [facility] Department of [facility] [place] [address] from Last 3 Months Insurance MEDICARE MEDICARE MEDICARE COMMERCIAL GENERIC MEDICARE Care Teams Tripe Scraper Relationship Specialty Start Date End Date Mora Canada MD [address] [place] [address] PCP - General Family Medicine 04/26/24 Mora Canada MD [address] [place] [address] Family Medicine 04/26/24
--- OUTSIDE RECORDS SUMMARY | 2024-10-17 16:42 | XMS_ITS | Encounter Summary ---
Author Organization [facility] Healthcare Address [address] [place] [address] Care Team Providers Care Drywall Hanger Name Role Phone Mora Canada MD Primary Care Provider [phone] Mora Canada MD Unavailable Reason for Visit * Neurology (Routine) - Closed Specialty Diagnoses / Procedures Referred By Contac t Referred To Contact Diagnoses Sensory loss Procedures EMG/NCV - Lars Merritt Jr., MD [address] [facility] [address] [place] [address] Phone: tel: fax: [facility] (All Locations) Referral ID Status Reason Start Date Expiration Date Visits Re quested Visits Authorized [id number] Closed 08/21/2024 09/20/2025 1 1 Encounter Details Date Type Department Care Team (Late st Contact Info) Description 10/17/2024 10:15 AM CDT Hospital Encounter [facility] Neurological Disorders Testing [address] [place] [address] Social History Tobacco Use Types Packs/Day Years [...] on file 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 Gender Identity Female 02/17/2021 7:34 PM CDT Sexual Orientation Straight 02/17/2021 7: 34 PM CDT documented as of this encounter Plan of Treatment Pending Results Name Type Priority Associated Diagnoses Date /Time EMG/NCV - Neurology Routine Sensory loss 10/17/2024 11:48 AM CDT documented as of this encounter Visit Diagnoses Not on filedocumented in this encounter Care Teams Drywall Hanger Relationship Specialty Start Date End Date Mora Canada MD [address] [place] [address] PCP - General Family Medicine 04/26/24 Mora Canada MD [address] [place] [address] Family Medicine 04/26/24 documented as of this encounter
--- NOTE | 2024-10-17 16:59 | ECG_ITS ---
Test Date: 2024-10-17 17:14:34 Measurements Intervals Sterling Rate: 75 P: 53 SC: 167 QRS: -54 QRSD: 130 T: 49 QT: 404 QTc: 454 Interpretive Statements SINUS RHYTHM RIGHT BUNDLE BRANCH BLOCK [120+ ms QRS DURATION, UPRIGHT V1, 40+ ms S IN I/aVL/V4/V5/V6] LEFT ANTERIOR FASCICULAR BLOCK [QRS AXIS <= -45, QR IN I, RS IN II] VOLTAGE CRITERIA FOR LVH [MEETS CRITERIA IN ONE OF: R(aVL), S(V1), R(V5), R(V5/V6)+S(V1)] No previous ECG available for comparison Electronically Signed On 10-21-2024 22:36:16 CDT by Lou Prieto M.D.
[2024-10-17] MEDS: ACETAMINOPHEN 325 MG TABLET 650 MG PO (17:14)
[2024-10-17] MEDS: SODIUM CHLORIDE 0.9% IV 1,000 ML 999 ML IV CONT (17:14)
--- OUTSIDE RECORDS SUMMARY | 2024-10-17 17:16 | XMS_ITS | Encounter Summary ---
Author Organization [facility] Healthcare Address [address] [place] [address] Care Team Providers Care Car Icer Name Role Phone Mora Canada MD Primary Care Provider [phone] Mora Canada MD Unavailable [phone] Reason for Referral * MRI/CAT/PET Scan (Routine) - Closed Specialty Diagnoses / Procedures Referred By Contac t Referred To Contact Radiology Diagnoses Imbalance Sensory loss Procedures MRI Cervical Spine WO Contrast Lars Merritt Jr., MD [address] [place] [address] Phone: tel: fax: [address] [address] Referral ID Status Reason Start Date Expiration Date Visits Re quested Visits Authorized [id number] Closed 09/19/2024 10/19/2025 1 1 Reason for Visit * MRI/CAT/PET Scan (Routine) - Closed Specialty Diagnoses / Procedures Referred By Contac t Referred To Contact Radiology Diagnoses Imbalance Sensory loss Procedures MRI Cervical Spine WO Contrast Lars Merritt Jr., MD [address] [place] [address] Phone: tel: fax: [address] [place] [address] Referral ID Status Reason Start Date Expiration Date Visits Re quested Visits Authorized [id number] Closed 09/19/2024 10/19/2025 1 1 Encounter Details Date Type Department Care Team (Vane st Contact Info) Description 10/17/2024 8:56 AM CDT Hospital Encounter 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 Uncovertebral spurring and facet arthropathy with fbvo-ob-omtxcaze left and no significant right neural foraminal narrowing. C3-C4: Posterior disc osteophyte complex indents the ventral cord. Dytg-kk-bcujunig ventral spinal canal stenosis. Uncovertebral spurring and facet arthropathy with moderate to severe left and mild right neural foraminal narrowing. C4-C5: Posterior disc osteophyte complex flattens the ventral cord. Thickened ligamentum flavum. Lkqk-je-ogkvojui ventral spinal canal stenosis. Uncovertebral spurring and [...] Delfino Brooks D.O. AP: AP Report ID: [id number] Reading Location: [id number] Procedure Note Delfino Brooks, DO - 10/17/2024 [...] T2 on T3. Mild retrolisthesis C4 on T2zpfxqkt C6 on C7. No acute compression fracture [...] stenosis. Uncovertebral spurring and facet arthropathy with wsmh-ck-rmxbloel left and nosignificant right neural foraminal narrowing. C3-C4: Posterior disc osteophyte complex indents the ventral cord. Dbzs-do-slodajlx ventral spinal canal stenosis. Uncovertebral spurringand facet arthropathy with moderate to severe left and mild right neuralforaminal narrowing. C4-C5: Posterior disc osteophyte complex flattens the ventral cord.Thickened ligamentum flavum. Vilo-yj-hokuzpkb ventral spinal canal stenosis. Uncovertebral spurring and [...] Delfino Brooks D.O. AP: AP Report ID: [id number] Reading Location: [place] [address] Lars Merritt Jr., MD IMG MRI PROCEDURES Final Result documented in this encounter Visit Diagnoses Diagnosis Imbalance Abnormality of gait Sensory loss Disturbance of skin sensation documented in this encounter Care Teams Car Icer Relationship Specialty Start Date End Date Mora Canada MD [address] [place] [address] PCP - General Family Medicine 04/26/24 Mora Canada MD [address] [place] [address] Family Medicine 04/26/24 documented as of this encounter
--- OUTSIDE RECORDS SUMMARY | 2024-10-17 17:16 | XMS_ITS | Encounter Summary ---
Author Organization [facility] Healthcare Address [address] [place] [address] Care Team Providers Care Lighting Fixtures Decorator Name Role Phone Mora Canada MD Primary Care Provider [phone] Mora Canada MD Unavailable [phone] Reason for Referral * MRI/CAT/PET Scan (Routine) - Closed Specialty Diagnoses / Procedures Referred By Contac t Referred To Contact Radiology Diagnoses Imbalance Sensory loss Procedures MRI Thoracic Spine WO Contrast Lars Merritt Jr., MD [address] [place] [address] Phone: tel: fax: [address] [address] Referral ID Status Reason Start Date Expiration Date Visits Re quested Visits Authorized [id number] Closed 09/19/2024 10/19/2025 1 1 Reason for Visit * MRI/CAT/PET Scan (Routine) - Closed Specialty Diagnoses / Procedures Referred By Contac t Referred To Contact Radiology Diagnoses Imbalance Sensory loss Procedures MRI Thoracic Spine WO Contrast Lars Merritt Jr., MD [address] [place] [address] Phone: tel: fax: [address] [place] [address] Referral ID Status Reason Start Date Expiration Date Visits Re quested Visits Authorized [id number] Closed 09/19/2024 10/19/2025 1 1 Encounter Details Date Type Department Care Team (Late st Contact Info) Description 10/17/2024 8:57 AM CDT Hospital Encounter [facility] [address] [place] [address] Imbalance; Sensory loss Social History Tobacco Use [...] on file 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 Few scattered Schmorl's nodes. Xjcy-yv-rpbwpkwn endplate degenerative changes and marginal spur formation. [...] concurrently obtained lumbar spine MRI. IMPRESSION: 1. Dyry-bo-wrhmpqmb thoracic spine degenerative changes. No high-grade spinal canal or neural foraminal narrowing. 2. Other findings as above. THIS IS AN ELECTRONICALLY VERIFIED FINAL REPORT 10/17/2024 1:36 PM - Electronically signed by Delfino Brooks D.O. AP: AP Report ID: [id number] Reading Location: [id number] Procedure Note Delfino Brooks, DO - 10/17/2024 [...] the thoracic spine. Few scattered Schmorl's nodes. Noxa-pw-moyshemq endplate degenerative changesand marginal spur formation. Rounded [...] concurrently obtained lumbar spine MRI. IMPRESSION: 1. Ydbc-hd-nrywfnou thoracic spine degenerative changes. No high-grade spinal canal or neural foraminal narrowing. 2. Other findings as above. THIS IS AN ELECTRONICALLY VERIFIED FINAL REPORT 10/17/2024 1:36 PM - Electronically signed by Delfino Brooks D.O. AP: AP Report ID: [id number] Reading Location: [id number] Lars Merritt Jr., MD IM MRI PROCEDURES Final Result documented in this encounter Visit Diagnoses Diagnosis Imbalance Abnormality of gait Sensory loss Disturbance of skin sensation documented in this encounter Care Teams Lighting Fixtures Decorator Relationship Specialty Start Date End Date Mora Canada MD [address] [place], [place] [id number] PCP - General Family Medicine 04/26/24 Mora Canada MD [address] [place] [address] Family Medicine 04/26/24 documented as of this encounter
--- OUTSIDE RECORDS SUMMARY | 2024-10-17 17:16 | XMS_ITS | Encounter Summary ---
Author Organization [facility] Address [address] [place] [address] Phone Care Team Providers Care Geotechnical Field Technician Name Role Phone Mora Canada MD Primary Care Provider [phone] Mora Canada MD Unavailable [phone] Encounter Details Date Type Department Care Team (Late st Contact Info) Description 10/10/2024 Telephone [facility] General Neurology [facility] 6th [place] [address] [place] [address] Anika Perkins RN Social History [...] on file 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 Merritt- When EMGs are scheduled at [facility], they will need to know what extremities need to be tested. Would you please advise on this patient. She is scheduled next . Thanks, Anika Gómez [facility] stating she wasn't sure why the EMG was being done [phone] 10/17/24 [facility] documented in this encounter Plan of Treatment Not on file documented as of this encounter Visit Diagnoses Not on filedocumented in this encounter Care Teams Geotechnical Field Technician Relationship Specialty Start Date End Date Mora Canada MD [address] [place] [address] PCP - General Family Medicine 04/26/24 Mora Canada MD [address] [place] [address] Family Medicine 04/26/24 documented as of this encounter
--- OUTSIDE RECORDS SUMMARY | 2024-10-17 17:16 | XMS_ITS | Encounter Summary ---
Author Organization [facility] Healthcare Address [address] [place] [address] Care Team Providers Care Mounter Brass Wind Instruments Name Role Phone Mora Canada MD Primary Care Provider [phone] Mora Canada MD Unavailable [phone] Reason for Referral * MRI/CAT/PET Scan (Routine) - Closed Specialty Diagnoses / Procedures Referred By Contac t Referred To Contact Radiology Diagnoses Imbalance Sensory loss Procedures MRI Lumbar Spine WO Contrast Lars Merritt Jr., MD [address] [place] [address] Phone: tel: fax: [address] [address] Referral ID Status Reason Start Date Expiration Date Visits Re quested Visits Authorized [id number] Closed 09/19/2024 10/19/2025 1 1 Reason for Visit * MRI/CAT/PET Scan (Routine) - Closed Specialty Diagnoses / Procedures Referred By Contac t Referred To Contact Radiology Diagnoses Imbalance Sensory loss Procedures MRI Lumbar Spine WO Contrast Lars Merritt Jr., MD [address] [place] [address] Phone: tel: fax: [address] [place] [address] Referral ID Status Reason Start Date Expiration Date Visits Re quested Visits Authorized [id number] Closed 09/19/2024 10/19/2025 1 1 Encounter Details Date Type Department Care Team (Late st Contact Info) Description 10/17/2024 8:56 AM CDT Hospital Encounter [facility] 1 [place] [address] Imbalance; Sensory loss Social History Tobacco Use [...] on file 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 Flattening of the ventral thecal sac. Stuo-ooqikxt-ofvy-right lateral recess effacement. Mild left and no significant right neural foraminal narrowing. L2-L3: Disc bulge with thickened ligamentum flavum and facet arthropathy. Mild spinal canal stenosis. No significant neural foraminal narrowing. L3-L4: Disc bulge and superimposed central disc protrusion. Thickened ligamentum flavum and facet arthropathy. Dcfv-gg-ohvidsrb spinal canal stenosis. No significant neural foraminal narrowing. L4-L5: Anterolisthesis of L4 on L5 with unroofing of the disc and marginal spur formation. Superimposed central disc protrusion or calcified disc. Thickened ligamentum flavum and facet arthropathy. Vgwr-vq-gpzwsgyg spinal canal stenosis. Jrcks-ycxpmch-jwrb-left lateral recess narrowing. No significant neural foraminal [...] Delfino Brooks D.O. AP: AP Report ID: [id number] Reading Location: [id number] Procedure Note Delfino Brooks, DO - 10/17/2024 [...] arthropathy. Flattening of the ventral thecal sac. Xoyy-ljtbqvx-vrjr-right lateral recess effacement. Mild left and no significant right neural foraminal narrowing. L2-L3: Disc bulge with thickened ligamentum flavum and facet arthropathy. Mild spinal canal stenosis. No significant neural foraminal narrowing. L3-L4: Disc bulge and superimposed central disc protrusion. Thickened ligamentum flavum and facet arthropathy. Ycjl-em-joraaqzu spinal canal stenosis. No significant neural foraminal narrowing. L4-L5: Anterolisthesis of L4 on L5 with unroofing of the disc and marginal spur formation. Superimposed central disc protrusion or calcified disc. Thickened ligamentum flavum and facet arthropathy. Twvz-mr-waunuyblimaerm canal stenosis. Atbqr-dldsnpz-jbdm-left lateral recess narrowing. No significant neural foraminal [...] Delfino Brooks D.O. AP: GIOVANNY Report ID: [id number] Reading Location: [id number] us Lars Merritt Jr., MD IMG MRI PROCEDURES Final Result documented in this encounter Visit Diagnoses Diagnosis Imbalance Abnormality of gait Sensory loss Disturbance of skin sensation documented in this encounter Care Teams Mounter Brass Wind Instruments Relationship Specialty Start Date End Date Mora Canada MD [address] [place] [address] PCP - General Family Medicine 04/26/24 Mora Canada MD [address] [place] [address] Family Medicine 04/26/24 documented as of this encounter
--- OUTSIDE RECORDS SUMMARY | 2024-10-17 17:16 | XMS_ITS | Encounter Summary ---
Author Organization [facility] Healthcare Address [address] [place] [address] Care Team Providers Care Spike Machine Heater Name Role Phone Mora Canada MD Primary Care Provider [phone] Mora Canada MD Unavailable [phone] Reason for Visit * Neurology (Routine) - Closed Specialty Diagnoses / Procedures Referred By Contac t Referred To Contact Diagnoses Sensory loss Procedures EMG/NCV - Lars Merritt Jr., MD [address] [facility] 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 Gender Identity Female 02/17/2021 7:34 PM CDT Sexual Orientation Straight 02/17/2021 7: 34 PM CDT documented as of this encounter Plan of Treatment Pending Results Name Type Priority Associated Diagnoses Date /Time EMG/NCV - Neurology Routine Sensory loss 10/17/2024 11:48 AM CDT documented as of this encounter Visit Diagnoses Not on filedocumented in this encounter Care Teams Spike Machine Heater Relationship Specialty Start Date End Date Mora Canada MD [address] [place] [address] PCP - General Family Medicine 04/26/24 Mora Canada MD [address] [place] [address] Family Medicine 04/26/24 documented as of this encounter
--- OUTSIDE RECORDS SUMMARY | 2024-10-17 17:17 | XMS_ITS | Referral Summary ---
Author Organization [facility] Address [address] [place] [address] Care Team Providers Care Legal Cashier Name Role Phone Mora Canada MD Primary Care Provider [phone] Mora Canada MD Unavailable [phone] Encounters Date Type Department Care Team Description 10/17/2024 10:15 AM CDT Hospital Encounter [facility] Neurological Disorders Testing [address] [place] [address] 10/17/2024 8:56 AM CDT Hospital Encounter [facility] [address] [place] [address] Imbalance; Sensory loss 10/17/2024 8:57 AM CDT Hospital Encounter [facility] [address] [place] [address] [place]al[place]; Sensory loss 10/17/2024 8:56 AM CDT Hospital Encounter [facility] [address] [place] [address] [place]mbalance; Sensory loss 10/10/2024 Telephone [facility] General Neurology [address] [facility] 6th [place] [address] [place] [address] Anika Perkins RN 08/23/2024 7:27 AM CDT - 08/23/2024 11:59 PM CDT Hospital Encounter [address] [address] [place]mbalance; Sensory loss Discharge Disposition: Discharge to home or self care 08/21/2024 5:10 PM CDT Lab [facility] [address] [place] [address] [place]; Sensory loss; Encounter for screening for diabetes mellitus 08/21/2024 12:30 PM CDT Office Visit [facility] General Neurology [address] [facility] 6th [address] [place] [address] Lars Merritt Jr., MD Imbalance (Primary Dx); Chronic intractable headache, unspecified headache type; Sensory loss; Memory loss; Encounter for screening for diabetes mellitus 08/13/2024 Telephone [facility] Scheduling [address] [place] [address] Trinh Castillo from Last 3 [...] on file 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 Flattening of the ventral thecal sac. Pnxv-ratbggv-qibg-right lateral recess effacement. Mild left and no significant right neural foraminal narrowing. L2-L3: Disc bulge with thickened ligamentum flavum and facet arthropathy. Mild spinal canal stenosis. No significant neural foraminal narrowing. L3-L4: Disc bulge and superimposed central disc protrusion. Thickened ligamentum flavum and facet arthropathy. Bnqt-xm-tazrrbzx spinal canal stenosis. No significant neural foraminal narrowing. L4-L5: Anterolisthesis of L4 on L5 with unroofing of the disc and marginal spur formation. Superimposed central disc protrusion or calcified disc. Thickened ligamentum flavum and facet arthropathy. Bkgd-lw-ugcavpaa spinal canal stenosis. Cfwis-sjriodo-vqsw-left lateral recess narrowing. No significant neural foraminal [...] Delfino Brooks D.O. AP: AP Report ID: [id number] Reading Location: [id number] Procedure Note Delfino Brooks, DO - 10/17/2024 [...] arthropathy. Flattening of the ventral thecal sac. Okcj-hzyrwoq-tbom-right lateral recess effacement. Mild left and no significant right neural foraminal narrowing. L2-L3: Disc bulge with thickened ligamentum flavum and facet arthropathy. Mild spinal canal stenosis. No significant neural foraminal narrowing. L3-L4: Disc bulge and superimposed central disc protrusion. Thickened ligamentum flavum and facet arthropathy. Ccky-pc-zvqfyhmu spinal canal stenosis. No significant neural foraminal narrowing. L4-L5: Anterolisthesis of L4 on L5 with unroofing of the disc and marginal spur formation. Superimposed central disc protrusion or calcified disc. Thickened ligamentum flavum and facet arthropathy. Ukzq-rz-kgrybeonhpmnxp canal stenosis. Wlpua-mdejzwl-cbsz-left lateral recess narrowing. No significant neural foraminal [...] Delfino Brooks D.O. AP: AP Report ID: [id number] Reading Location: [place] [address] Lars Merritt Jr., MD IMG MRI PROCEDURES [...] the thoracic spine. Few scattered Schmorl's nodes. Glvz-yk-yqcahevb endplate degenerative changes and marginal spur formation. [...] concurrently obtained lumbar spine MRI. IMPRESSION: 1. Pmaq-wb-jkhfjoug thoracic spine degenerative changes. No high-grade spinal canal or neural foraminal narrowing. 2. Other findings as above. THIS IS AN ELECTRONICALLY VERIFIED FINAL REPORT 10/17/2024 1:36 PM - Electronically signed by Delfino Brooks D.O. AP: AP Report ID: [id number] Reading Location: [id number] Procedure Note Delfino Brooks, DO - 10/17/2024 [...] the thoracic spine. Few scattered Schmorl's nodes. Asid-xm-jnrkivnz endplate degenerative changesand marginal spur formation. Rounded [...] concurrently obtained lumbar spine MRI. IMPRESSION: 1. Eapq-mb-qibbulku thoracic spine degenerative changes. No high-grade spinal canal or neural foraminal narrowing. 2. Other findings as above. THIS IS AN ELECTRONICALLY VERIFIED FINAL REPORT 10/17/2024 1:36 PM - Electronically signed by Delfino Brooks D.O. AP: AP Report ID: [id number] Reading Location: [place] [address] Lars Merritt Jr., MD [facility] MRI PROCEDURES Final Result * MRI Cervical [...] stenosis. Uncovertebral spurring and facet arthropathy with xecf-vo-ecxlzvns left and no significant right neural foraminal narrowing. C3-C4: Posterior disc osteophyte complex indents the ventral cord. Jcxc-vv-ddewcvug ventral spinal canal stenosis. Uncovertebral spurring and facet arthropathy with moderate to severe left and mild right neural foraminal narrowing. C4-C5: Posterior disc osteophyte complex flattens the ventral cord. Thickened ligamentum flavum. Bung-cg-bwdbbaqp ventral spinal canal stenosis. Uncovertebral spurring and [...] Delfino Brooks D.O. AP: AP Report ID: [id number] Reading Location: [id number] Procedure Note Delfino Brooks, DO - 10/17/2024 [...] T2 on T3. Mild retrolisthesis C4 on B3zswvqmd C6 on C7. No acute compression fracture [...] stenosis. Uncovertebral spurring and facet arthropathy with hbuw-im-qhwznjhc left and nosignificant right neural foraminal narrowing. C3-C4: Posterior disc osteophyte complex indents the ventral cord. Wemp-hz-fearhbrj ventral spinal canal stenosis. Uncovertebral spurringand facet arthropathy with moderate to severe left and mild right neuralforaminal narrowing. C4-C5: Posterior disc osteophyte complex flattens the ventral cord.Thickened ligamentum flavum. Opsm-el-enibijmr ventral spinal canal stenosis. Uncovertebral spurring and [...] Delfino Brooks D.O. AP: AP Report ID: [id number] Reading Location: [id number] Lars Merritt Jr., MD IM MRI PROCEDURES Final Result * Clinical pathology report (08/23/2024 6:00 AM CDT) Miscellaneous 08/23/2024 6:0 0 AM CDT 08/27/2024 8:47 AM CDT Narrative 08/27/2024 4:25 PM CDT [facility] results best viewed via link to PDF [facility] Department of Pathology [address] [place] [id number] Final Report Note to Patients: This report [...] the details. Patient Name: ALISON PEREZ Address: [address] [place] [id number] Gender: F : 1940 (Age: 83) Service: Location: N : [id number] Hospital #: [id number] Patient Type: [facility] SPECIMEN Taken: 08/23/2024 Received: 08/27/2024 Accessioned: 08/27/2024 Physician(s): Lars Merritt Jr., M.D. [facility] Specimen(s) Received A: Urine Urine Protein Electrophoresis [...] determined by the Surgical Pathology Department at [facility] as part of an ongoing quality process lead program and in compliance with federally mandated [...] characteristics determined by the Surgical Pathology Department [facility]. It has not been cleared or approved [...] URINE ORDERABL ES Final Result ASIYA COTTON (THICKET) 1 [facility] [place] [address] * Protein electrophoresis, urine, 24 hour (08/23/2024 6:00 AM CDT) Protein, ur, quant 7.7 mg/dL Comment: No reference range established. Testing performed by: [facility], [address] [place] [address], [place]., [address] Albumin, Ur 25.2 % ASIYA Sidhu (ANGEL) Comment: No reference range established. Testing performed by: [facility], [address] [place] [address], [place]., [address] Alpha-1 globulin, Ur 35.2 % ASIYA COTTON (ANGEL) Comment: No reference range established. Testing performed by: [facility], [address] [place] [address]., [address] Alpha-2 globulin, Ur 16.5 % [facility] (ANGEL) Comment: No reference range established. Testing performed by: [facility], [address] [place] [address]., [address] Beta globulin, Ur 13.1 % [facility] (ANGEL) Comment: No reference range established. Testing performed by: [facility], [address] [place] [address]., [address] Gamma globulin, Ur 10.0 % [facility] (ANGEL) Comment: No reference range established. Testing performed by: [facility], [address] [place] [address], [address] UPEP interp See Cl Path Rpt [facility] (ANGEL) Comment:Testing performed by : [facility], [address] [place] [address], [address] Protein, 24 hr, ur 89 1 - 150 mg/24H [facility] (ANGEL) Comment:Testing performed by : [facility], [address] [place] [address], [id number] Urine 08/23/2024 6:00 AM CDT 08/23/2024 3:48 PM CDT Lars Merritt Jr., MD LAB URINE ORDERABL ES Final Result Performing Organization Address [facility]/ZIP Co de Phone Number ASIYA COTTON (ANGEL) 1 [facility] [place] [address] * Immunofixation, urine with interpretation (08/23/2024 6:00 AM CDT) Immunofixation , Ur See Cl Path Rpt Comment:Testing performed by : [facility], [address] [place] [address]., [address] Urine 08/23/2024 6:00 AM CDT 08/23/2024 3:48 PM CDT Lars Merritt Jr., MD LAB URINE ORDERABL ES Final Result Performing Organization Address City/[facility]/ZIP Co de Phone Number ASIYA COTTON (ANGEL) [address] [place] [address] * Treponemal IgG/IgM Blood (08/21/2024 3:01 PM CDT) Pathologist [facility] Treponemal IgG/IgM Nonreactive Nonreactive Comment: Interpretive Data: If test is reported as EQUIVOCAL, a new sample should be drawn in two weeks for testing. Current interpretive data was last revised on 2018. Blood 08/21/2024 3:01 PM CDT 08/21/2024 3:40 PM CDT Lars Merritt Jr., MD LAB MICROBIOLOGY - GENERAL ORDERABLES Final Result Performing Organization Address City/[facility]/[place] [address] * (ABNORMAL) NICOLE ab ql w/rflx to NICOLE qn (08/21/2024 3:01 PM CDT) Pathologist [facility] NICOLE Positive 1:320 Comment: Interpretive Data Normal [...] revised on 2019. NICOLE, quant 1:320 titer [facility] NICOLE, interp Homogeneous (A) [facility] Blood 08/21/2024 3:01 PM CDT 08/21/2024 3:39 PM CDT Lars Merritt Jr., MD LAB BLOOD ORDERABL ES Final Result Performing Organization Address City/[facility]/ZIP Co de Phone Number [facility] [place] [address] * Anti-double stranded DNA abs (08/21/2024 3:01 PM CDT) Pathologist [facility] dsDNA Ab 1.0 <=4.0 IUnits/mL Comment: Interpretive Data Negative: < or = 4 IUnits/mL Indeterminate: 5 - 9 IUnits/mL Positive: > or = 10 IUnits/mL Current interpretive data was last revised on 2016. Blood 08/21/2024 3:01 PM CDT 08/21/2024 3:40 PM CDT Lars Merritt Jr., MD LAB BLOOD ORDERABL ES Final Result Performing Organization Address [facility] Co de Phone Number [facility] [place] [address] * PR3 - proteinase 3, Ab (08/21/2024 3:01 PM CDT) [facility] Proteinase 3 ab <0.2 <=0.9 Ab Index Comment: Interpretive Data Negative: <1 Ab Index Positive: > or = 1 Ab Index Current interpretive data was last revised on 2016. Blood 08/21/2024 3:01 PM CDT 08/21/2024 3:45 PM CDT Lars Merritt Jr., MD LAB BLOOD ORDERABL ES Final Result Performing Organization Address [facility] Co de Phone Number [facility] [place] [address] * MPO - myeloperoxidase antibody (08/21/2024 3:01 PM CDT) [facility] Myeloperoxidase ab <0.2 <=0.9 Ab Index Comment: Interpretive Data Negative: <1 Ab Index Positive: > or = 1 Ab Index Current interpretive data was last revised on 2016. Blood 08/21/2024 3:01 PM CDT 08/21/2024 3:45 PM CDT Lars Merritt Jr., MD LAB BLOOD ORDERABL ES Final Result Performing Organization Address [facility] de Phone Number [facility] [place] [address] * (ABNORMAL) Anti-Neutrophilic Cytoplasmic Antibody (ANCA) with Reflex to MPO and PR3 Abs (53:01 PM CDT) [facility] ANCA Indetermi rosa(A) Negative Comment:Indeterminate for P- ANCA - Results by antigen specific immunoassay (MPO & PR3) to follow. May indicate ulcerative colitis or Crohn's disease. Blood 08/21/2024 3:01 PM CDT 08/21/2024 3:45 PM CDT Lars Merritt Jr., MD LAB BLOOD ORDERABL ES Final Result Performing Organization Address [facility] de Phone Number [facility] [place] [address] * TSH (08/21/2024 3:01 PM CDT) [facility] Thyroid Stimulating Hormone 2.18 0.30 - 4.20 mcIUnit/mL Blood 08/21/2024 3:01 PM CDT 08/21/2024 3:40 PM CDT Lars Merritt Jr., MD LAB BLOOD ORDERABL ES Final Result Performing Organization Address [facility] de Phone Number [facility] [place] [address] * (ABNORMAL) Hemoglobin A1c (08/21/2024 3:01 PM CDT) [facility] Hgb A1C 5.7(H) 4.0 - 5.6 % Estimated Average Glucose 117 mg/dL [facility] Comment: The ADA recommends reporting an [...] ORDERABL ES Final Result Performing Organization Address City/[facility] Co de Phone Number ASIYA [facility] Department [place] [address] * (ABNORMAL) Vitamin B12 (08/21/2024 3:01 PM CDT) Pathologist [facility] Vitamin B12 >2,000(H) 230 - 1,250 pg/mL Blood 08/21/2024 3:01 PM CDT 08/21/2024 3:40 PM CDT Lars Merritt Jr., MD LAB BLOOD ORDERABL ES Final Result Performing Organization Address City/[facility] de Phone Number ASIYA [facility] [place] [address] from Last 3 Months Insurance MEDICARE MEDICARE MEDICARE COMMERCIAL GENERIC MEDICARE Care Teams Legal Cashier Relationship Specialty Start Date End Date Mora Canada MD [address] [place] [address] PCP - General Family Medicine 04/26/24 Mora Canada MD [address] [place] [address] Family Medicine 04/26/24
--- OUTSIDE RECORDS SUMMARY | 2024-10-17 17:17 | XMS_ITS | Clinical Summary ---
Author Organization [facility] Address [address] [place] [address] Care Team Providers Care Chemical Handler Name Role Phone Mora Canada MD Primary Care Provider [phone] Mora Canada MD Unavailable [phone] Allergies Active Allergy Reactions Criticality Noted [...] Description 10/17/2024 10:15 AM CDT Hospital Encounter [facility] Neurological Disorders Testing [address] [place] [address] 10/17/2024 8:57 AM CDT Hospital Encounter [facility] [address] [place] [address] Imbalance; Sensory loss 10/17/2024 8:56 AM CDT Hospital Encounter [facility] [address] [place] [address] Imbalance; Sensory loss 10/17/2024 8:56 AM CDT Hospital Encounter [facility] [address] [place] [address] Imbalance; Sensory loss 10/10/2024 Telephone [facility] General Neurology [address] [facility] 6th [place] [address] [place] [phone] Anika Perkins RN 08/23/2024 7:27 AM CDT - 08/23/2024 11:59 PM CDT Hospital Encounter [address] [address] Imbalance; Sensory loss Discharge Disposition: Discharge to home or self care 08/21/2024 5:10 PM CDT Lab [facility] [address] [place] [address] Imbalance; Sensory loss; Encounter for screening for diabetes mellitus 08/21/2024 12:30 PM CDT Office Visit [facility] General Neurology [address] [facility] [address] 6th [address] [place] [phone] Lars Merritt Jr., MD Imbalance (Primary Dx); Chronic intractable headache, unspecified headache type; Sensory loss; Memory loss; Encounter for screening for diabetes mellitus 08/13/2024 Telephone [facility] Scheduling [facility] [place] [place] [address] Trinh Castillo from Last 3 Months Immunizations [...] on file 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 Flattening of the ventral thecal sac. Yvwo-hmdrdbx-nuvr-right lateral recess effacement. Mild left and no significant right neural foraminal narrowing. L2-L3: Disc bulge with thickened ligamentum flavum and facet arthropathy. Mild spinal canal stenosis. No significant neural foraminal narrowing. L3-L4: Disc bulge and superimposed central disc protrusion. Thickened ligamentum flavum and facet arthropathy. Bbvn-na-awqslkqo spinal canal stenosis. No significant neural foraminal narrowing. L4-L5: Anterolisthesis of L4 on L5 with unroofing of the disc and marginal spur formation. Superimposed central disc protrusion or calcified disc. Thickened ligamentum flavum and facet arthropathy. Zcof-rp-nhpfpzfd spinal canal stenosis. Ojoag-rshtmru-ppce-left lateral recess narrowing. No significant neural foraminal [...] Delfino Brooks D.O. AP: AP Report ID: [id number] Reading Location: [id number] Procedure Note Delfino Brooks, DO - 10/17/2024 [...] arthropathy. Flattening of the ventral thecal sac. Sxee-ydfgjgk-uqyu-right lateral recess effacement. Mild left and no significant right neural foraminal narrowing. L2-L3: Disc bulge with thickened ligamentum flavum and facet arthropathy. Mild spinal canal stenosis. No significant neural foraminal narrowing. L3-L4: Disc bulge and superimposed central disc protrusion. Thickened ligamentum flavum and facet arthropathy. Tfbb-gj-gjimymgm spinal canal stenosis. No significant neural foraminal narrowing. L4-L5: Anterolisthesis of L4 on L5 with unroofing of the disc and marginal spur formation. Superimposed central disc protrusion or calcified disc. Thickened ligamentum flavum and facet arthropathy. Ikvf-vk-wikofbmieitcqg canal stenosis. Htfab-vkmbmfu-xlps-left lateral recess narrowing. No significant neural foraminal [...] Delfino Brooks D.O. AP: GIOVANNY Report ID: [id number] Reading Location: [id number] us Lars Merritt Jr., MD IMG MRI [...] the thoracic spine. Few scattered Schmorl's nodes. Sdad-uz-efanupnc endplate degenerative changes and marginal spur formation. [...] concurrently obtained lumbar spine MRI. IMPRESSION: 1. Jtea-if-dfjuhopa thoracic spine degenerative changes. No high-grade spinal canal or neural foraminal narrowing. 2. Other findings as above. THIS IS AN ELECTRONICALLY VERIFIED FINAL REPORT 10/17/2024 1:36 PM - Electronically signed by Delfino Brooks D.O. AP: AP Report ID: [id number] Reading Location: [id number] Procedure Note Delfino Brooks, DO - 10/17/2024 [...] the thoracic spine. Few scattered Schmorl's nodes. Ckjs-pb-jadkjclj endplate degenerative changesand marginal spur formation. Rounded [...] concurrently obtained lumbar spine MRI. IMPRESSION: 1. Eihg-am-aujdgsot thoracic spine degenerative changes. No high-grade spinal canal or neural foraminal narrowing. 2. Other findings as above. THIS IS AN ELECTRONICALLY VERIFIED FINAL REPORT 10/17/2024 1:36 PM - Electronically signed by Delfino Brooks D.O. AP: AP Report ID: [id number] Reading Location: [place] [address] Lars Merritt Jr., MD IMG MRI PROCEDURES [...] stenosis. Uncovertebral spurring and facet arthropathy with ttvg-xg-vyydmaob left and no significant right neural foraminal narrowing. C3-C4: Posterior disc osteophyte complex indents the ventral cord. Tlpw-hb-cvtnpjtk ventral spinal canal stenosis. Uncovertebral spurring and facet arthropathy with moderate to severe left and mild right neural foraminal narrowing. C4-C5: Posterior disc osteophyte complex flattens the ventral cord. Thickened ligamentum flavum. Pysa-wa-onabjuce ventral spinal canal stenosis. Uncovertebral spurring and [...] Delfino Brooks D.O. AP: GIOVANNY Report ID: [id number] Reading Location: [id number] Procedure Note Delfino Brooks DO - 10/17/2024 [...] T2 on T3. Mild retrolisthesis C4 on R0wluajxu C6 on C7. No acute compression fracture [...] stenosis. Uncovertebral spurring and facet arthropathy with ubzw-nt-fjdusgvy left and nosignificant right neural foraminal narrowing. C3-C4: Posterior disc osteophyte complex indents the ventral cord. Pwoi-oi-yppkjpxc ventral spinal canal stenosis. Uncovertebral spurringand facet arthropathy with moderate to severe left and mild right neuralforaminal narrowing. C4-C5: Posterior disc osteophyte complex flattens the ventral cord.Thickened ligamentum flavum. Xqtl-ih-vahedypj ventral spinal canal stenosis. Uncovertebral spurring and [...] Delfino Brooks D.O. AP: AP Report ID: [id number] Reading Location: [place] [address] Lars Merritt Jr., MD [facility] MRI PROCEDURES Final Result * Clinical pathology report (08/23/2024 6:00 AM CDT) Miscellaneous 08/23/2024 6:0 0 AM CDT 08/27/2024 8:47 AM CDT Narrative 08/27/2024 4:25 PM CDT EPIC results best viewed via link to PDF [facility] Department of Pathology [address] [place] [address] Final Report Note to Patients: This report [...] the details. Patient Name: ALISON PEREZ Address: [address] [place] [id number] Gender: F : 1940 (Age: 83) Service: Location: [facility] #: [id number] Patient Type: [facility] SPECIMEN Taken: 08/23/2024 Received: 08/27/2024 Accessioned: 08/27/2024 Physician(s): Lars Merritt Jr., M.D. [facility] Specimen(s) Received A: Urine Urine Protein [...] determined by the Surgical Pathology Department at [facility] as part of an ongoing air quality engineer program and in compliance with federally mandated [...] characteristics determined by the Surgical Pathology Department [facility]. It has not been cleared or approved [...] ES Final Result [facility] (ANGEL) 1 [facility] [place] [address] * Protein electrophoresis, urine, 24 hour (08/23/2024 6:00 AM CDT) Protein, ur, quant 7.7 mg/dL Comment: No reference range established. Testing performed by: [address] [address] Albumin, Ur 25.2 % [facility] (ANGEL) Comment: No reference range established. Testing performed by: [address] [address] Alpha-1 globulin, Ur 35.2 % [facility] (ANGEL) Comment: No reference range established. Testing performed by: [address] [address] Alpha-2 globulin, Ur 16.5 % [facility] (ANGEL) Comment: No reference range established. Testing performed by: [address] [address] Beta globulin, Ur 13.1 % [facility] (ANGEL) Comment: No reference range established. Testing performed by: [address] [address] Gamma globulin, Ur 10.0 % [facility] (ANGEL) Comment: No reference range established. Testing performed by: [address] [address] UPEP interp See Cl Path Rpt [facility] (ANGEL) Comment:Testing performed by : [address], [address] Protein, 24 hr, ur 89 1 - 150 mg/24H [facility] (ANGEL) Comment:Testing performed by : [address] [address] Urine 08/23/2024 6:00 AM CDT 08/23/2024 3:48 PM CDT Lars Merritt Jr., MD LAB URINE ORDERABL ES Final Result Performing Organization Address [facility] Co de Phone Number [facility] (ANGEL) 1 [facility] [place] [address] * Immunofixation, urine with interpretation (08/23/2024 6:00 AM CDT) Immunofixation , Ur See Cl Path Rpt Comment:Testing performed by : [facility], [address] [place] [address], [address] Urine 08/23/2024 6:00 AM CDT 08/23/2024 3:48 PM CDT Lars Merritt Jr., MD LAB URINE ORDERABL ES Final Result Performing Organization Address [facility] de Phone Number [facility] (DECKER) 1 [place] [address] * Treponemal IgG/IgM Blood (08/21/2024 3:01 PM CDT) Treponemal IgG/IgM Nonreactive Nonreactive Comment: Interpretive Data: If test is reported as EQUIVOCAL, a new sample should be drawn in two weeks for testing. Current interpretive data was last revised on 2018. Blood 08/21/2024 3:01 PM CDT 08/21/2024 3:40 PM CDT Lars Merritt Jr., MD LAB MICROBIOLOGY - GENERAL ORDERABLES Final Result Performing Organization Address City/[facility]/ZIP Co de Phone Number [facility] [place] [address] * (ABNORMAL) NICOLE ab ql w/rflx to NICOLE qn (08/21/2024 3:01 PM CDT) [facility] NICOLE Positive 1:320 Comment: Interpretive Data Normal [...] revised on 2019. NICOLE, quant 1:320 titer [facility] NICOLE, interp Homogeneous (A) [facility] Blood 08/21/2024 3:01 PM CDT 08/21/2024 3:39 PM CDT Lars Merritt Jr., MD LAB BLOOD ORDERABL ES Final Result Performing Organization Address [facility] de Phone Number [facility] [place] [address] * Anti-double stranded DNA abs (08/21/2024 3:01 PM CDT) [facility] dsDNA Ab 1.0 <=4.0 IUnits/mL Comment: Interpretive Data Negative: < or = 4 IUnits/mL Indeterminate: 5 - 9 IUnits/mL Positive: > or = 10 IUnits/mL Current interpretive data was last revised on 2016. Blood 08/21/2024 3:01 PM CDT 08/21/2024 3:40 PM CDT Lars Merritt Jr., MD LAB BLOOD ORDERABL ES Final Result Performing Organization Address [facility] Co de Phone Number [facility] Department [place] [address] * PR3 - proteinase 3, Ab (08/21/2024 3:01 PM CDT) [facility] Proteinase 3 ab <0.2 <=0.9 Ab Index Comment: Interpretive Data Negative: <1 Ab Index Positive: > or = 1 Ab Index Current interpretive data was last revised on 2016. Blood 08/21/2024 3:01 PM CDT 08/21/2024 3:45 PM CDT Lars Merritt Jr., MD LAB BLOOD ORDERABL ES Final Result Performing Organization Address [facility] Co de Phone Number [facility] Department [place] [address] * MPO - myeloperoxidase antibody (08/21/2024 3:01 PM CDT) [facility] Myeloperoxidase ab <0.2 <=0.9 Ab Index Comment: Interpretive Data Negative: <1 Ab Index Positive: > or = 1 Ab Index Current interpretive data was last revised on 2016. Blood 08/21/2024 3:01 PM CDT 08/21/2024 3:45 PM CDT Lars Merritt Jr., MD LAB BLOOD ORDERABL ES Final Result Performing Organization Address [facility] de Phone Number [facility] Department [place] [address] * (ABNORMAL) Anti-Neutrophilic Cytoplasmic Antibody (ANCA) with Reflex to MPO and PR3 Abs (53:01 PM CDT) [facility] ANCA Indetermi rosa(A) Negative Comment:Indeterminate for P- ANCA - Results by antigen specific immunoassay (MPO & PR3) to follow. May indicate ulcerative colitis or Crohn's disease. Blood 08/21/2024 3:01 PM CDT 08/21/2024 3:45 PM CDT Lars Merritt Jr., MD LAB BLOOD ORDERABL ES Final Result Performing Organization Address City/[facility] Co de Phone Number [facility] [place] [address] * TSH (08/21/2024 3:01 PM CDT) [facility] Thyroid Stimulating Hormone 2.18 0.30 - 4.20 mcIUnit/mL Blood 08/21/2024 3:01 PM CDT 08/21/2024 3:40 PM CDT Lars Merritt Jr., MD LAB BLOOD ORDERABL ES Final Result Performing Organization Address [facility] [place] [address] * (ABNORMAL) Hemoglobin A1c (08/21/2024 3:01 PM CDT) [facility] Hgb A1C 5.7(H) 4.0 - 5.6 % Estimated Average Glucose 117 mg/dL [facility] Comment: The ADA recommends reporting an estimated [...] ORDERABL ES Final Result Performing Organization Address [facility] de Phone Number [facility] [place] [address] * (ABNORMAL) Vitamin B12 (08/21/2024 3:01 PM CDT) [facility] Vitamin B12 >2,000(H) 230 - 1,250 pg/mL Blood 08/21/2024 3:01 PM CDT 08/21/2024 3:40 PM CDT us Lars Merritt Jr., MD LAB BLOOD ORDERABL ES Final Result [facility] Department [place] [address] from Last 3 Months Insurance MEDICARE MEDICARE MEDICARE COMMERCIAL GENERIC MEDICARE Care Teams Chemical Handler Relationship Specialty Start Date End Date Mora Canada MD [address] [place] [address] PCP - General Family Medicine 04/26/24 Mora Canada MD [address] [place] [address] Family Medicine 04/26/24
--- OUTSIDE RECORDS SUMMARY | 2024-10-17 17:17 | XMS_ITS | Continuity of Care Document ---
Author Organization [facility] Address [address] [place] [address] Phone Care Team Providers Care Gang Saw Operator Name Role Phone Mc OD, Teo Unavailable [...] Diagnoses Date Provider Providers Copied on Encounter [facility], [address], [place], [place], [id number], tel:[phone] [facility] No Information Sep-2 2-201 0 Mc OD Teo. [address] [facility] [address] , [address], [place], [address], [place]. tel:[phone] Referring Provider: Teo Mc OD A, [address] [facility] [address], [place], [address]. tel:[phone] [facility], [address] [place] [address] [address], [place], [place], [address], [place] tel:[phone] [facility] No Information Aug-2 7-201 0 Mc OD Teo. [address] [facility] [address] , [address], [place], [address], [place]. tel:[phone] [facility], [address] [place] [address] [address], [place], [place], [id number], [place] tel:[phone] [facility] No Information Aug-2 0-201 0 Mc OD Teo. [address] [facility] , [address], [place], [place], [facility], [place]. tel:[phone] [facility], [address] [place] [address] [address], [place], [place], [address], [place] tel:[phone] [facility] No Information Aug-1 3-201 0 Mc OD Teo. [address] [facility] , [address], [place], [facility], [place]. tel:[phone] Office/outpat ient Visit, Est [facility], [address], [place], [place], [id number], [place] tel:[phone] [facility] No Information Aug-0 5-201 0 Mc OD Teo. [address] [facility] , [address], [place], [address], [place]. tel:[phone] [facility], [address] [place] [address] [address], [place], [place], [id number], [place] tel:[phone] [facility] No Information 2 6-201 0 Krishnasamy Arben. [address], [place], [address], [place]. tel:[phone] Referring Provider: Arben borden, [address], [place], [address]. tel:[phone] [facility], [address] [place] [address] [address], [place], [place], [address], [place] tel:[phone] [facility] No Information 0 9-201 0 Krishnasamy Arben. [facility] [address], [place], [facility], [place]. tel:[phone] Referring Provider: Arben borden, [address] [place], [place] [address] [address], [place], [place], [facility]. tel:[phone] Office/outpat ient Visit, [facility], [address] [place] [address] [address], [place], [place], [address], [place] tel:[phone] [facility] No Information 0 6-201 0 Krishnasamy Arben. [facility] [address], [place], [address], [place]. tel:[phone] Referring Provider: Arben borden, [facility] [address], [place], [place], [facility]. tel:[phone] [facility], [address] [place] [address] [address], [place], [place], [id number], [place] tel:[phone] [facility] No Information 0 8-200 9 Krishnasamy Arben. [address] [facility] [address], [place], [facility], [place]. tel:[phone] Referring Provider: Arben borden, [facility] [address], [place], [facility]. tel:[phone] [facility], [address], [place], [place], [id number], [place] tel:[phone] [facility] No Information 0 6-200 9 Krishnasamy Arben. [address] [facility] [address], [place], [address], [place]. tel:[phone] Referring Provider: Arben borden, [address] [facility] [address], [place], [address]. tel:[phone] [facility], [address], [place], [place], [id number], [place] tel:[phone] [facility] No Information 0 1-200 9 Krishnasamy Arben. [address], [address], [place]. tel:[phone] Office/outpat ient Visit, Est [facility], [address], [place], [place], [id number], [place] tel:[phone] [facility] No Information 6-200 8 Krishnasamy Arben. [facility]1 [facility] [address], [place], [address], [place]. tel:[phone] Office/outpat ient Visit, Est [facility], [address], [place], [place], [address], [place] tel:[phone] [facility] No Information 1 5-200 7 Jina Kirby. [address] [facility] [place], [address], [place]. tel:[phone] Referring Provider: Kofi Sidhu, [address] [facility] [address], [place], [address] . tel:[phone] [facility], [address], [place], [place], [address], tel:[phone] [facility] No Information 0-200 7 Jina Kirby. [address] [facility] [place], [address], . tel:[phone] Referring Provider: Kofi Sidhu, [address] [facility] [place], [address] . tel:[phone] [facility], [address], [place], [place], [address], tel:[phone] [facility] No Information 4-200 7 Jina Kirby. [address] [facility], [facility] [place], [id number], . tel:[phone] Referring Provider: Kofi Sidhu, [address] [place], [address] . tel:[phone] Office/outpat ient Visit, [facility], [address], [place], [place], [address], [place] tel:[phone] [facility] No Information 2-200 7 Jina Kibry. [address] [place], [place], [address], . tel:[phone] Family History Family Member Type Diagnosis Age At Onset No Information Payers Payer name Insurance type Covered alliance party ID Authoriza tion(s) No Information Social History [...]
[2024-10-17 17:23] LABS: Hematocrit 38.7 % (35.0-42.0); Hemoglobin 12.8 g/dL (11.7-13.8); Mean Corpuscular HGB Conc 33.1 g/dL (32-36); Mean Corpuscular Hemoglobin 33.8 pg (27.0-31.0); Mean Corpuscular Volume 102.1 fL (78.0-102.0); Platelet Count Result 160 K/mm3 (150-420); Red Blood Count 3.79 M/mm3 (4.20-5.40); White Blood Count 5.7 K/mm3 (4.8-10.8)
[2024-10-17 17:36] LABS: Band Neutrophils Percent 0 % (0-6); Basophils Absolute Manual 0.00 K/mm3 (0-0.1); Basophils Percent Manual 0 % (0-1); Eosinophils Absolute Manual 0.00 K/mm3 (0.02-0.50); Eosinophils Percent Manual 0 % (1-6); Lymphocytes Absolute Manual 1.08 K/mm3 (1.1-4.5); Lymphocytes Percent Manual 19 % (18-44); Monocytes Absolute Manual 0.79 K/mm3 (0.1-0.90); Monocytes Percent Manual 14 % (3-9); Neutrophils Absolute Manual 3.81 K/mm3 (1.3-6.7); Neutrophils Percent Manual 67 % (46-73)
[2024-10-17 17:38] LABS: INR 1.0; Partial Thromboplastin Time 30.2 Sec (23.9-30.70); Prothrombin Time 10.9 Seconds (9.50-12.1)
[2024-10-17 17:39] LABS: Alanine Aminotransferase 27 U/L (6-35); Albumin Level 4.1 g/dL (3.5-5.1); Alkaline Phosphatase 81 U/L (38-126); Anion Gap 6 mmol/L (4-12); Aspartate Amino Transferase 42 U/L (14-36); Bilirubin,Total 0.5 mg/dL (0.2-1.3); Blood Urea Nitrogen 14 mg/dL (7-17); CRP 2.6 mg/dL (<1.0); Calcium 8.6 mg/dL (8.4-10.2); Carbon Dioxide 28 mmol/L (22-30); Chloride 105 mmol/L (98-107); Estimated CRCL calculation 36 ml/min; Estimated Glomerular Filt Rate > 60; Glucose 96 mg/dL (65-110); Osmolality Calculated 288 mOsm/kg (285-295); Potassium 4.0 mmol/L (3.4-5.0); Sodium 139 mmol/L (137-145); Total Protein 7.3 g/dL (6.3-8.2)
[2024-10-17 17:48] LABS: Troponin I < 0.012 ng/mL (0.000-0.034)
[2024-10-17 18:01] LABS: Add Urine Microscopic? NO; Appearance Urine Clear (Clear); Glucose Urine UA Negative (Negative); Leukocyte Esterase Ur Negative LEU/UL (Negative); Nitrate Urine Negative (Negative); Specific Grav Ur 1.010 (1.010-1.020)
[2024-10-17 18:03] LABS: Influenza A QL RT-PCR Negative (Negative); Influenza B QL RT-PCR Negative (Negative); RSV RNA, RT-PCR Negative (Negative); SARS-CoV-2 RNA PCR Positive (Negative)
--- NOTE | 2024-10-17 19:02 | ED_ITS ---
HPI - Weakness General Chief complaint: Weakness Stated complaint: weakness Time Seen by Provider: 10/17/24 16:53 Source: patient, family and EMS Mode of arrival: EMS Limitations: physical limitation and clinical condition History of Present Illness HPI Narrative: This is a 89-year-old female who presents via EMS with fever weakness with no cough congestion no headache no blurry vision no neurological deficits has been having generalized weakness for the past couple of days patient with history of hypertension history of cerebral carcinoma followed by Neurology. There is no chest pain no shortness of breath no nausea vomiting no abdominal pain no diarrhea constipation. MD Complaint: generalized weakness Onset (ago): day(s) Duration: constant Location: generalized Severity: moderate Related Data Home Medications ?Medication ?Instructions ?Recorded ?Confirmed ?Last Taken ?Type cholecalciferol (vitamin D3) 50 2,000 unit PO DAILY 05/14/19 09/26/24 09/03/21 History mcg (2,000 unit) tablet (Vitamin D3) pyridoxine (vitamin B6) 100 mg 100 mg PO DAILY 03/02/21 09/26/24 09/03/21 History tablet brimonidine 0.2 % eye drops 1 drp EACH EYE BID 09/02/21 09/26/24 09/06/21 History cyanocobalamin (vitamin B-12) 1,000 mcg PO DAILY 09/14/21 09/26/24 Unknown History 1,000 mcg tablet multivitamin 1 tablet PO DAILY 09/14/21 09/26/24 Unknown History w-min#[id number]-CN-vviufmon-lutein 2.8 mg-500 mcg-500 mcg tablet calcium citrate 1,200 mg PO DAILY 12/05/22 09/26/24 Unknown History etvxtfok-evq- 250 mg-dha 90 1 cap PO DAILY 12/05/22 09/26/24 Unknown History mg-epa 160 bj-kylq-vnqt-zeax capsule (Ocuvite Adult 50 Plus) docusate sodium 50 mg capsule 50 mg PO DAILY 08/09/23 09/26/24 Unknown History (Stool Softener) ibuprofen 200 mg tablet 200 mg PO Q6H PRN 08/09/23 09/26/24 Unknown History Allergies Allergy/AdvReac Type Severity Reaction Status Date / Time alendronate sodium (From AdvReac Intermediate upset Verified 10/17/24 16:51 Fosamax) stomach cephalexin AdvReac Unknown YEAST Verified 10/17/24 16:51 INFECTION meperidine AdvReac Unknown LOW BLOOD Verified 10/17/24 16:51 PRESSURE, N/V Review of Systems 2 Review of Systems: All systems reviewed & are unremarkable except as noted in HPI and below PMFSH Past Medical History Medical History Cerebrovascular disease Chronic headache Cerebral cavernoma Prediabetes Anemia Low vitamin D level DVT (deep venous thrombosis) DVT prophylaxis Encephalopathy Trimalleolar fracture of ankle, closed Skin cancer Osteopenia Displaced trimalleolar fracture of left ankle Glaucoma Gastroesophageal reflux disease Hypertension Dysphagia Bimalleolar ankle fracture Bimalleolar avulsion fracture of left ankle Anosmia Arthritis High cholesterol Hearing loss Ankle arthritis Paresthesia Ankle arthralgia (~07/22/20) Osteoporosis Post-menopausal Vitamin D deficiency disease HTN (hypertension) Surgical History Surgical History History of open reduction and internal fixation (ORIF) procedure (09/06/21) Displaced left ankle trimalleolar fracture. History of benign breast biopsy History of laparoscopic cholecystectomy (08/2016) History of colonoscopy Internal hemorrhoids and diverticulosis. Status post trigger finger release (08/2009) Right 3rd finger. History of repair of hip fracture (09/2008) Internal fixation with gamma nail of a left intertrochanteric hip fracture. History of meniscectomy of right knee (08/2012) History of sacrocolpopexy (04/2014) For uterine prolapse. History of bilateral salpingo-oophorectomy (04/2014) History of abdominal supracervical subtotal hysterectomy (04/2014) History of total left hip arthroplasty Family History Family History Mother Family history of malignant neoplasm Family history of lymphoma, Onset Age: 81 Sibling Family history of diabetes mellitus in first degree relative Father Family history of pancreatic cancer, Onset Age: 58 Son Lung cancer Other Arthritis Cerebrovascular accident Diabetes mellitus Family history of lung cancer High cholesterol Hypertension Social History Social History Social History: Surrogate decision maker: Parker or Julieth Perez, and daughter. Code status: Full code. Smoking status: Never smoker Second hand tobacco smoke exposure: No Alcohol intake: never Substance use: never Substance use type: does not use Do You Feel Safe in your Home?: Yes Lack of Transportation: No Lack of Food: Never True Current Housing: I Have Housing Concerned About Future Housing: No Difficulty Paying Gas/Electric Bills: No Difficulty Paying for Meds: No Currently Unemployed: No Education: High School Diploma/GED Difficulty w/ Childcare or Family Care: No Living arrangements: with family Occupation/Education: retired Spiritual care concerns: No Exam 2 Const: General: no acute distress and ill appearing Nutritional Appearance: well nourished Orientation/consciousness: patient oriented x3 HENMT: Head: normal to inspection Eyes: Conjunctivae: conjunctivae normal Pupils: Equal, round and reactive pupils present EOM: EOMs intact bilaterally Chest: Chest palpation & inspection: normal inspection of the chest Resp: Effort & Inspection: normal respiratory effort Auscultation: clear to auscultation bilaterally Cardio: Rate: regular rate Rhythm: regular rhythm GI: GI Palp: Yes Soft to palpation Auscultation: normal bowel sounds : General: Yes bladder normal to palpation Urinary Catheter: Urinary Catheter: patent and draining Skin: General skin exam: normal color Rashes: no rashes Wounds: no wounds Neuro: General: patient oriented x3, moves all extremities, no meningeal signs and no focal motor deficits Extrem: General: normal to inspection Course Course Emergency Course: And with generalized weakness had COVID a was positive, CT scan showed no acute abnormalities chest x-ray with no infiltrates UA was normal the rest of her blood work was unremarkable, patient received IV fluids and will admit for generalized weakness and hydration. Vital Signs Vital signs: Vital Signs Temperature 37.3 C 10/17/24 16:39 Pulse Rate 79 10/17/24 16:39 Respiratory Rate 20 10/17/24 16:39 Blood Pressure 148/128 H 10/17/24 16:39 Pulse Oximetry 95 10/17/24 16:39 Oxygen Delivery Room Air 10/17/24 16:39 Temperature 37.1 C 10/17/24 18:01 Pulse Rate 76 10/17/24 19:00 Respiratory Rate 18 10/17/24 19:00 Blood Pressure 131/78 10/17/24 19:00 Pulse Oximetry 96 10/17/24 19:00 Oxygen Delivery Room Air 10/17/24 19:00 MDM - Weakness Lab Data 10/17/24 17:12 10/17/24 17:12 Labs: Lab Results 10/17/24 10/17/24 10/17/24 Range/Units 16:59 17:12 17:24 WBC 5.7 (4.8-10.8) K/mm3 RBC 3.79 L (4.20-5.40) M/mm3 Hgb 12.8 (11.7-13.8) g/dL Hct 38.7 (35.0-42.0) % MCV 102.1 H (78.0-102.0) fL MCH 33.8 H (27.0-31.0) pg MCHC 33.1 (32-36) g/dL RDW 12.6 (11.6-14.4) % Plt Count 160 (150-420) K/mm3 MPV 9.6 (9.2-11.8) fl Immature Gran % (Auto) Not Reportable Neut % (Auto) Not Reportable Lymph % (Auto) Not Reportable [place] % (Auto) Not Reportable Eos % (Auto) Not Reportable Baso % (Auto) Not Reportable Lymph # (Auto) Not Reportable [place] # (Auto) Not Reportable Eos # (Auto) Not Reportable Baso # (Auto) Not Reportable Abs Immat Gran (auto) Not Reportable Absolute Neuts (auto) Not Reportable Absolute Nucleated RBC Not Reportable Neutrophils % (Manual) 67 (46-73) % Band Neutrophils % 0 (0-6) % Lymphocytes % (Manual) 19 (18-44) % Monocytes % (Manual) 14 H (3-9) % Eosinophils % (Manual) 0 L (1-6) % Basophils % (Manual) 0 (0-1) % Nucleated RBC % Not Reportable Abs Neuts (Manual) 3.81 (1.3-6.7) K/mm3 Abs Lymphs (Manual) 1.08 L (1.1-4.5) K/mm3 Abs Monocytes (Manual) 0.79 (0.1-0.90) K/mm3 Absolute Eos (Manual) 0.00 L (0.02-0.50) K/mm3 Abs Basophils (Manual) 0.00 (0-0.1) K/mm3 Platelet Estimate Adequate (Adequate) Schistocytes Not Reportable PT 10.9 (9.50-12.1) Seconds INR 1.0 APTT 30.2 (23.9-30.70) Sec Sodium 139 (137-145) mmol/L Potassium 4.0 (3.4-5.0) mmol/L Chloride 105 (98-107) mmol/L Carbon Dioxide 28 (22-30) mmol/L Anion Gap 6 (4-12) mmol/L BUN 14 (7-17) mg/dL Creatinine 0.83 (0.7-1.0) mg/dL Estim Creat Clear Calc 36 ml/min Estimated GFR > 60 (59 - ) Glucose 96 (65-110) mg/dL Calculated Osmolality 288 (285-295) mOsm/kg Lactic Acid 1.1 (0.4-2.0) mmol/L Calcium 8.6 (8.4-10.2) mg/dL Total Bilirubin 0.5 (0.2-1.3) mg/dL AST 42 H (14-36) U/L ALT 27 (6-35) U/L Alkaline Phosphatase 81 (38-126) U/L Troponin I < 0.012 (0.000-0.034) ng/mL C-Reactive Protein 2.6 H (<1.0) mg/dL Total Protein 7.3 (6.3-8.2) g/dL Albumin 4.1 (3.5-5.1) g/dL Urine Color Light yellow (Yellow) Urine Appearance Clear (Clear) Urine pH 6.5 (5.0-8.0) Ur Specific [place] 1.010 (1.010-1.020) Urine Protein Negative (Negative) Urine Glucose (UA) Negative (Negative) Urine Ketones Negative (Negative) Ur Blood (Man) Trace-intact H (Negative) Urine Nitrate Negative (Negative) Urine Bilirubin Negative (Negative) Urine Urobilinogen 0.2 (0.2-1.0) mg/dL Leukocyte Esterase Rfl Negative (Negative) [place]/UL Influenza A (RT-PCR) Negative (Negative) Influenza B (RT-PCR) Negative (Negative) RSV (RT-PCR) Negative (Negative) SARS-CoV-2 RNA (RT-PCR) Positive A (Negative) Critical Care Time Critical Care Time Critical Care Time: No Discharge Plan Discharge Clinical Impression: COVID, Dehydration Patient Disposition: Acute Care Hospital Condition: Guarded Prognosis Patient Language: Bulgarian Prescriptions: No Action pyridoxine (vitamin B6) 100 mg tablet 100 mg PO DAILY calcium citrate 250 mg calcium tablet 1,200 mg PO DAILY Ocuvite Adult 50 Plus 250 mg (90 mg-160 mg) capsule 1 cap PO DAILY ibuprofen 200 mg tablet 200 mg PO Q6H PRN Stool Softener 50 mg capsule 50 mg PO DAILY cholecalciferol (vitamin D3) [Vitamin D3] 2,000 unit tablet 2,000 unit PO DAILY Rx Instructions: take with water and meal brimonidine 0.2 % drops 1 drp EACH EYE BID lisinopril 40 mg tablet 40 mg PO DAILY Qty: 90 1RF metoprolol tartrate 100 mg tablet 150 mg PO BID Qty: 270 1RF cyanocobalamin (vitamin B-12) 1,000 mcg Tablet 1,000 mcg PO DAILY Rx Instructions: take with water and meal [id number] 2.8-500-500 mg-mcg-mcg Tablet 1 tablet PO DAILY Rx Instructions: take with food Follow-up/Referrals: Mora Canada MD [Primary Care Provider] - Time of Disposition: 19:05
[2024-10-17] MEDS: SODIUM CHLORIDE 0.9% IV 1,000 ML 100 ML IV CONT (19:58)
[2024-10-17] MEDS: METOPROLOL TARTRATE 50 MG TAB 150 MG PO (22:00)
--- NOTE | 2024-10-18 00:21 | ADMGEN ---
This patient, Taylor Perez, was admitted to 2nd Floor Room 209-1. Patient/family oriented to hospital policies and general routines including ID bracelet, bed and alarms, pain management, procedures, bathroom and other care routines, personal items, smoking policy, room service/diet, and visiting hours. Information on how to activate the Rapid Response Team has been discussed. Patient/Family are encouraged to report perceived risks to care and to ask questions if they do not understand what they are told or what they should do.
[2024-10-18] MEDS: SODIUM CHLORIDE 0.9% IV 1,000 ML 100 ML IV CONT (06:12)
[2024-10-18 06:56] LABS: Hematocrit 35.3 % (35.0-42.0); Hemoglobin 11.6 g/dL (11.7-13.8); Mean Corpuscular HGB Conc 32.9 g/dL (32-36); Mean Corpuscular Hemoglobin 33.9 pg (27.0-31.0); Mean Corpuscular Volume 103.2 fL (78.0-102.0); Platelet Count Result 144 K/mm3 (150-420); Red Blood Count 3.42 M/mm3 (4.20-5.40); White Blood Count 5.0 K/mm3 (4.8-10.8)
[2024-10-18 07:07] LABS: Alanine Aminotransferase 25 U/L (6-35); Albumin Level 3.5 g/dL (3.5-5.1); Alkaline Phosphatase 73 U/L (38-126); Anion Gap 3 mmol/L (4-12); Aspartate Amino Transferase 43 U/L (14-36); Bilirubin,Total 0.5 mg/dL (0.2-1.3); Blood Urea Nitrogen 11 mg/dL (7-17); Calcium 7.8 mg/dL (8.4-10.2); Carbon Dioxide 23 mmol/L (22-30); Chloride 112 mmol/L (98-107); Estimated CRCL calculation 43 ml/min; Estimated Glomerular Filt Rate > 60; Glucose 102 mg/dL (65-110); Neutrophils Percent Manual 68 % (46-73); Osmolality Calculated 285 mOsm/kg (285-295); Potassium 4.2 mmol/L (3.4-5.0); Sodium 138 mmol/L (137-145); Total Cells Counted 100; Total Protein 6.4 g/dL (6.3-8.2)
[2024-10-18 07:08] LABS: Lymphocytes Absolute Manual 1.00 K/mm3 (1.1-4.5); Lymphocytes Percent Manual 20 % (18-44); Monocytes Absolute Manual 0.60 K/mm3 (0.1-0.90); Monocytes Percent Manual 12 % (3-9); Schistocytes None Seen
[2024-10-18 07:55] VITALS: BP 147/71; PULSE 64; RESP 16; TEMP 37.7; O2SAT 94
[2024-10-18 08:30] VITALS: PULSE 64; RESP 16; O2SAT 94
--- NOTE | 2024-10-18 08:50 | P.SS_ITS ---
Same Day Admit/Disch: HPI History of Present Illness Chief complaint: weakness Narrative: Taylor Perez is a 83 year old female who presented to the emergency department for evaluation of generalized weakness. Patient reports she he has started feeling generally weak Monday night after her shower which continued through at which time daughter brought patient in for evaluation. patient does have a past medical history CVA, cerebral cavernoma, encephalopathy, anemia, HTN, and HLD. It was reported patient is following with a neurologist outpatient. for ER notes at that time patient denied any chest pain, shortness a breath, nausea, vomiting, abdominal pain, diarrhea, fever or chills. In the ED: patient's labs were unremarkable and vitals stable except febrile at 100.7. CXR with no cardiopulmonary process and a CT head with no intracranial process. However, patient did test positive for COVID. Patient was admitted to the medical unit for IV fluid hydration and supportive care for generalized weakness secondary to COVID infection. [facility] Past Medical History Medical History Cerebrovascular disease Chronic headache Cerebral cavernoma Prediabetes Anemia Low vitamin D level DVT (deep venous thrombosis) DVT prophylaxis Encephalopathy Trimalleolar fracture of ankle, closed Skin cancer Osteopenia Displaced trimalleolar fracture of left ankle Glaucoma Gastroesophageal reflux disease Hypertension Dysphagia Bimalleolar ankle fracture Bimalleolar avulsion fracture of left ankle Anosmia Arthritis High cholesterol Hearing loss Ankle arthritis Paresthesia Ankle arthralgia (~07/22/20) Osteoporosis Post-menopausal Vitamin D deficiency disease HTN (hypertension) Surgical History Surgical History History of open reduction and internal fixation (ORIF) procedure (09/06/21) Displaced left ankle trimalleolar fracture. History of benign breast biopsy History of laparoscopic cholecystectomy (08/2016) History of colonoscopy Internal hemorrhoids and diverticulosis. Status post trigger finger release (08/2009) Right 3rd finger. History of repair of hip fracture (09/2008) Internal fixation with gamma nail of a left intertrochanteric hip fracture. History of meniscectomy of right knee (08/2012) History of sacrocolpopexy (04/2014) For uterine prolapse. History of bilateral salpingo-oophorectomy (04/2014) History of abdominal supracervical subtotal hysterectomy (04/2014) History of total left hip arthroplasty Family History Family History Mother Family history of malignant neoplasm Family history of lymphoma, Onset Age: 81 Sibling Family history of diabetes mellitus in first degree relative Father Family history of pancreatic cancer, Onset Age: 58 Son Lung cancer Other Arthritis Cerebrovascular accident Diabetes mellitus Family history of lung cancer High cholesterol Hypertension Social History Social History Social History: Surrogate decision maker: Parker or Julieth Perez, and daughter. Code status: Full code. Smoking status: Never smoker Second hand tobacco smoke exposure: No Alcohol intake: never Substance use: never Substance use type: does not use Do You Feel Safe in your Home?: Yes Lack of Transportation: No Lack of Food: Never True Current Housing: I Have Housing Concerned About Future Housing: No Difficulty Paying Gas/Electric Bills: No Difficulty Paying for Meds: No Currently Unemployed: No Education: High School Diploma/GED Difficulty w/ Childcare or Family Care: No Living arrangements: with family Occupation/Education: retired Spiritual care concerns: No Same Day Admit/Disch: Med Pre-admit Medications Home Medications ?Medication ?Instructions ?Recorded ?Confirmed ?Type cholecalciferol (vitamin D3) 50 2,000 unit PO DAILY 05/14/19 10/17/24 History mcg (2,000 unit) tablet (Vitamin D3) pyridoxine (vitamin B6) 100 mg 100 mg PO DAILY 03/02/21 10/17/24 History tablet brimonidine 0.2 % eye drops 1 drp EACH EYE BID 09/02/21 10/17/24 History cyanocobalamin (vitamin B-12) 1,000 mcg PO DAILY 09/14/21 10/17/24 History 1,000 mcg tablet multivitamin 1 tablet PO DAILY 09/14/21 10/17/24 History w-min#51-PD-imjljpcl-lutein 2.8 mg-500 mcg-500 mcg tablet qcxheoyc-coe-qopzj7 250 mg-dha 90 1 cap PO DAILY 12/05/22 10/17/24 History mg-epa 160 oh-ijec-jfnl-zeax capsule (Ocuvite Adult 50 Plus) ibuprofen 200 mg tablet 200 mg PO Q6H PRN pain 08/09/23 10/17/24 History lisinopril 40 mg tablet 40 mg PO DAILY #90 tabs 07/19/24 10/17/24 Rx metoprolol tartrate 100 mg tablet 150 mg (1.5 x 100 mg) PO BID #270 07/19/24 10/17/24 Rx tabs calcium 600 mg (as 1 tablet PO DAILY 10/17/24 10/17/24 History carbonate)-vitamin D3 5 mcg (200 unit) tablet Review of Systems Review of Systems All systems reviewed & are unremarkable except as noted in HPI and below Exam Const: General: comfortable and no acute distress HENMT: Mouth: Yes moist mucous membranes Eyes: General: appearance normal, both eyes and all related structures Sclera: sclerae normal Pupils: Equal, round and reactive pupils present Neck: Neck: supple and no JVD Resp: Effort & Inspection: normal respiratory effort Auscultation: clear to auscultation bilaterally Cardio: Rate: regular rate Rhythm: regular rhythm GI: GI Palp: Yes Soft to palpation Auscultation: normal bowel sounds Skin: General skin exam: normal color and no rashes or lesions noted Wounds: no wounds Neuro: Speech: normal speech Motor exam (neuro): 5/5 motor strength present throughout Extrem: General: normal to inspection Psych: Mental Status: mental status grossly normal Affect: normal affect DS: Data Data Completed and Pending Labs on day of discharge: Labs from last 24 hours 10/18/24 10/17/24 10/17/24 06:50 17:24 17:12 WBC 5.0 5.7 RBC 3.42 L 3.79 L Hgb 11.6 L 12.8 Hct 35.3 38.7 MCV 103.2 H 102.1 H MCH 33.9 H 33.8 H MCHC 32.9 33.1 RDW 12.8 12.6 Plt Count 144 L 160 MPV 9.3 9.6 Immature Gran % (Auto) Not Reportable Not Reportable Neut % (Auto) Not Reportable Not Reportable Lymph % (Auto) Not Reportable Not Reportable [place] % (Auto) Not Reportable Not Reportable Eos % (Auto) Not Reportable Not Reportable Baso % (Auto) Not Reportable Not Reportable Lymph # (Auto) Not Reportable Not Reportable [place] # (Auto) Not Reportable Not Reportable Eos # (Auto) Not Reportable Not Reportable Baso # (Auto) Not Reportable Not Reportable Abs Immat Gran (auto) Not Reportable Not Reportable Absolute Neuts (auto) Not Reportable Not Reportable Absolute Nucleated RBC Not Reportable Not Reportable Total Counted 100 Neutrophils % (Manual) 68 67 Band Neutrophils % Not Reportable 0 Lymphocytes % (Manual) 20 19 Monocytes % (Manual) 12 H 14 H Eosinophils % (Manual) 0 L Basophils % (Manual) 0 Nucleated RBC % Not Reportable Not Reportable Abs Neuts (Manual) 3.81 Abs Lymphs (Manual) 1.00 L 1.08 L Abs Monocytes (Manual) 0.60 0.79 Absolute Eos (Manual) 0.00 L Abs Basophils (Manual) 0.00 Platelet Estimate Adequate Adequate Schistocytes None seen Not Reportable PT 10.9 INR 1.0 APTT 30.2 Sodium 138 139 Potassium 4.2 4.0 Chloride 112 H 105 Carbon Dioxide 23 28 Anion Gap 3 L 6 BUN 11 14 Creatinine 0.70 0.83 Estim Creat Clear Calc 43 36 Estimated GFR > 60 > 60 Glucose 102 96 Calculated Osmolality 285 288 Lactic Acid 1.1 Calcium 7.8 L 8.6 Total Bilirubin 0.5 0.5 AST 43 H 42 H ALT 25 27 Alkaline Phosphatase 73 81 Troponin I < 0.012 C-Reactive Protein 2.6 H Total Protein 6.4 7.3 Albumin 3.5 4.1 Urine Color Urine Appearance Urine pH Ur Specific [place] Urine Protein Urine Glucose (UA) Urine Ketones Ur Blood (Man) Urine Nitrate Urine Bilirubin Urine Urobilinogen Leukocyte Esterase Rfl Influenza A (RT-PCR) Negative Influenza B (RT-PCR) Negative RSV (RT-PCR) Negative SARS-CoV-2 RNA (RT-PCR) Positive A 10/17/24 16:59 WBC RBC Hgb Hct MCV MCH MCHC RDW Plt Count MPV Immature Gran % (Auto) Neut % (Auto) Lymph % (Auto) [place] % (Auto) Eos % (Auto) Baso % (Auto) Lymph # (Auto) [place] # (Auto) Eos # (Auto) Baso # (Auto) Abs Immat Gran (auto) Absolute Neuts (auto) Absolute Nucleated RBC Total Counted Neutrophils % (Manual) Band Neutrophils % Lymphocytes % (Manual) Monocytes % (Manual) Eosinophils % (Manual) Basophils % (Manual) Nucleated RBC % Abs Neuts (Manual) Abs Lymphs (Manual) Abs Monocytes (Manual) Absolute Eos (Manual) Abs Basophils (Manual) Platelet Estimate Schistocytes PT INR APTT Sodium Potassium Chloride Carbon Dioxide Anion Gap BUN Creatinine Estim Creat Clear Calc Estimated GFR Glucose Calculated Osmolality Lactic Acid Calcium Total Bilirubin AST ALT Alkaline Phosphatase Troponin I C-Reactive Protein Total Protein Albumin Urine Color Light yellow Urine Appearance Clear Urine pH 6.5 Ur Specific [place] 1.010 Urine Protein Negative Urine Glucose (UA) Negative Urine Ketones Negative Ur Blood (Man) Trace-intact H Urine Nitrate Negative Urine Bilirubin Negative Urine Urobilinogen 0.2 Leukocyte Esterase Rfl Negative Influenza A (RT-PCR) Influenza B (RT-PCR) RSV (RT-PCR) SARS-CoV-2 RNA (RT-PCR) DS: Summary Hospital Course Hospital Course: Admission Taylor Perez is a 83 year old female who presented to the emergency department for evaluation of generalized weakness. Patient reports she he has started feeling generally weak Monday night after her shower which continued through at which time daughter brought patient in for evaluation. patient does have a past medical history CVA, cerebral cavernoma, encephalopathy, anemia, HTN, and HLD. It was reported patient is following with a neurologist outpatient. for ER notes at that time patient denied any chest pain, shortness a breath, nausea, vomiting, abdominal pain, diarrhea, fever or chills. In the ED: patient's labs were unremarkable and vitals stable except febrile at 100.7. CXR with no cardiopulmonary process and a CT head with no intracranial process. However, patient did test positive for COVID Hospital course: Patient was admitted to the medical unit for IV fluid hydration and supportive care for generalized weakness secondary to COVID infection. patient was evaluated up in chair reported feeling better after IV fluid hydration toleratin g breakfast denied any chest pain, shortness a breath, nausea, vomiting, abdominal pain, or chills. Follow-up labs unremarkable and vitals remained stable patient remained afebrile overnight and remained on room air with an oxygen saturation 97% was tolerating her breakfast in the a.m. denied any nausea or vomiting no diarrhea. nursing staff reported patient was ambulating with assistance to the bathroom without difficulty. Patient was discharged home with family provided information supportive care management for COVID-19. Status at Discharge Functional status at discharge: uses cane/walker Time Spent with Patient Time attestation: Total time spent providing and/or coordinating discharge services: Time spent: Greater than 30 minutes DS: Admitting Diagnosis Discharge Date 10/18/2024 Admitting Diagnosis Generalized weakness/COVID DS: Discharge Diagnosis Discharge Diagnosis (1) HTN (hypertension): Qualifiers: Hypertension type: essential hypertension Qualified Code(s): I10 - Essential (primary) hypertension Code(s): I10 - Essential (primary) hypertension Status: Acute (2) COVID: Code(s): U07.1 - COVID-19 Status: Acute (3) Fatigue: Code(s): R53.83 - Other fatigue Status: Acute (4) Generalized weakness: Code(s): R53.1 - Weakness Status: Acute Plan Patient discharged to home with family Discharge Plan Discharge Attending physician on discharge: Uche Borja Consulting providers: Atiya Dobbins Discharging Clinician: Atiya Dobbins Anticipated Discharge Date/Time: 10/18/24 09:01 Patient Disposition: Home Activity: may shower and as tolerated Diet: heart healthy Discharge Instructions: 1). COVID * Supportive care may use acetaminophen for fever or body aches * Encourage hydration * Encourage activity as tolerated * social distancing and face covering information attached How can you care for yourself at home? ? Keep track of any new symptoms or changes in your symptoms. ? Rest until you feel better. ? Be safe with medicines. Take your medicines exactly as prescribed. Call your doctor if you think you are having a problem with your medicine. ? Do not drive after taking a prescription pain medicine. ? Ensure to follow-up with primary care physician as indicated and provide updated medication list provided to you at discharge. When should you call for help? Call 911 anytime you think you may need emergency care. For example, call if: ? You passed out (lost consciousness). Call your doctor now or seek immediate medical care if: ? You have new symptoms like fever, difficulty breathing, Chest pain, vomiting, or rash. ? You have new or different pain. ? You are confused and are having trouble thinking clearly. ? Your symptoms are getting worse. Watch closely for changes in your health, and be sure to contact your doctor if: ? You do not get better as expected. Patient Instructions: Antibiotic Form, COVID-19 (Coronavirus Disease 2019) (DC), Face Coverings (Masks) and COVID-19 (DC), How to Recover from COVID-19 at Home (GEN), Social Distancing Guidelines for COVID-19 (DC) Patient Language: Iraqi Stand Alone Forms: General Discharge Information Follow-up/Referrals: Mora Canada MD [Primary Care Provider] - 2 weeks Discharge Medications: No Action calcium carbonate-vitamin D3 600 mg-5 mcg (200 unit) tablet 1 tablet PO DAILY pyridoxine (vitamin B6) 100 mg tablet 100 mg PO DAILY Ocuvite Adult 50 Plus 250 mg (90 mg-160 mg) capsule 1 cap PO DAILY ibuprofen 200 mg tablet 200 mg PO Q6H PRN (Reason: pain) cholecalciferol (vitamin D3) [Vitamin D3] 2,000 unit tablet 2,000 unit PO DAILY Rx Instructions: take with water and meal brimonidine 0.2 % drops 1 drp EACH EYE BID lisinopril 40 mg tablet 40 mg PO DAILY Qty: 90 1RF metoprolol tartrate 100 mg tablet 150 mg PO BID Qty: 270 1RF cyanocobalamin (vitamin B-12) 1,000 mcg Tablet 1,000 mcg PO DAILY Rx Instructions: take with water and meal yeqtzevl-[id number]-[id number]-ZJ-cribjxrb-xfi 2.8-500-500 mg-mcg-mcg Tablet 1 tablet PO DAILY Rx Instructions: take with food Date of admission: 10/17/24 19:06 Primary Care Provider: Mora Canada Admitting Provider: Deepak Martinez Attending physician on admission: Deepak Martinez Condition: Stable Quality VTE Prophylaxis VTE prophylaxis: mechanical ordered -Patient's previous records reviewed on admission -ER notes reviewed in detail on admission -discussed all findings and current treatment plan with patient/Family/POA -Consultations reviewed for recommendations -Patient's disposition for safe discharge discussed with pillowcase sewer Dictation performed by [facility] [employer] direct speech recognition software, therefore polysomnography technician variants and typographical errors may occur. Hospitalist MIPS Advance Care Plan I have confirmed that the patient's Advanced Care Plan is present, code status is documented, or surrogate decision maker is listed in patient medical record.: Yes Medication Reconciliation I have utilized all available resources to obtain, update and review the patients current medications (includes all prescriptions, OTC, herbals, cannabis , and nutritional supplements).: Yes The patient is not eligible for med reconciliation; the patient is in a emergent medical situation where delaying treatment would jeopardize the patients health.: No Heart Failure (Exclusion) Patient has history of Heart Transplant or Left Ventricular Assistive Device?: No IF YES, STOP HERE Heart Failure (Qualifier) Patient has current or prior documentation of LVEF less than or equal to 40%, or mod/servere depressed LVSF?: No IF NO, STOP HERE
[2024-10-18 09:31] VITALS: PULSE 64
[2024-10-18] MEDS: METOPROLOL TARTRATE 50 MG TAB 150 MG PO (09:31)
[2024-10-18] MEDS: PYRIDOXINE HCL 50 MG TABLET 100 MG PO (09:31)
[2024-10-18] MEDS: CHOLECALCIFEROL (VITAMIN D3) 25 MCG (1,000 UNITS) TABLET 50 MCG PO (09:32)
[2024-10-18] MEDS: CYANOCOBALAMIN 1,000 MCG TABLET 1000 MCG PO (09:32)
[2024-10-18] MEDS: BRIMONIDINE TARTRATE 0.2% OP SOLN 5 ML BTL 1 DROP EACH EYE (09:32)
[2024-10-18] MEDS: THERAPEUTIC MULTIVITAMINS/MINERALS TAB (*BKC) 1 TABLET PO (09:32)
[2024-10-18] MEDS: OPTI-GEN TAB 1 TABLET PO (09:32)
--- NOTE | 2024-10-18 10:55 | PC.NURSE ---
Patient discharging home. Daughter here to transport patient home. IV sites removed from left forearm and right AC. Dressing applied, patient tolerated well. All discharge instructions and education reviewed with patient and daughter. Both parties state understanding. All belongings gathered together and sent home with patient. Patient denies any needs or questions at discharge. this nurse accompanied patient to front door via wheelchair, patient left via private vehicle with daughter.
--- NOTE | 2024-10-22 08:48 | PC.NURSE ---
Discharge call back call made. No answer. No identification on VM, did not leave message.
== END 2024-10-18 10:55 | disposition home or self-care (01) ==
LOC: CHSED 19:05 → CHS2ND 19:11
PROVIDERS: Admitting Provider Internal Medicine; Emergency Provider Emergency Medicine; PCP Family Medicine; Visit Provider Internal Medicine
DX: U07.1 COVID-19 (principal); E86.0 Dehydration; I10 Essential (primary) hypertension; K21.9 Gastro-esophageal reflux disease without esophagitis; R73.03 Prediabetes; E78.5 Hyperlipidemia, unspecified; D64.9 Anemia, unspecified; E55.9 Vitamin D deficiency, unspecified; Z86.718 Personal history of other venous thrombosis and embolism; Z86.73 Personal history of transient ischemic attack (TIA), and cerebral infarction without residual deficits
CPT/HCPCS: 36415; 70450; 71045; 80053; 81003; 83605; 84484; 85025; 85610; 85730; 86140; 87040; 87637; 93005; 96360; 96361; 99285; A9270; G0378; J7030

== ENCOUNTER 2024-11-30 12:07 | Outpatient (CLI) | payer MEDICARE, OTHER, SELFPAY ==
--- NOTE | ~2024-11-30 | MR_ITS ---
MRI of the abdomen: Clinical indication: Bilateral flank pain. Technique: Coronal SSFSE ARC, WATER:coronal LAVA-FLEX, Coronal 2D FIESTA FatSat, Axial SSFSE BH ARC, Axial 3D DualEcho BH, Axial SSFSE-IR, Axial DWI b=500, Axial 2D FIESTA FatSat, pre and dynamic postco ntrast Axial LAVA ARC, postcontrast Coronal In and Opposed phase LAVA FLEX. Following intravenous adm inistration of 14 cc MultiHance gadolinium, T1-weighted fat-sat imaging was performed in the axial an d coronal planes. Findings: Gallbladder absent. The common bile duct is normal in course and caliber. No filling defect s are seen within the CBD. No evidence of intrahepatic biliary ductal dilatation. The pancreatic duct is normal in size. Liver, spleen, pancreas, left adrenal gland, and kidneys appear unremarkable, aside from small right renal cyst. 1.4 cm right adrenal gland nodule demonstrates signal loss on out of phase images relativ e to in phase images, compatible with benign adenoma. The aorta and the paraaortic regions appear nor mal. Impression: 1.4 cm right adrenal adenoma. No other significant findings. Reviewed, dictated and finalized at [place] [facility]. Impression: 1.4 cm right adrenal adenoma. No other significant findings.
--- OUTSIDE RECORDS SUMMARY | 2024-11-30 12:10 | XMS_ITS | Clinical Summary ---
Author Organization [facility] Address [address] [place] [address] Care Team Providers Care Safety And Health Manager Name Role Phone Mora Canada MD Primary Care Provider [phone] Mora Canada MD Unavailable [phone] Allergies Active Allergy Reactions Criticality Noted Date Comments Cephalexin Unknown 02/19/2021 Meperidine Medications brimonidine (ALPHAGAN) 0.2 % ophthalmic solution brimonidine 0.2 % eye drops INSTILL 1 DROP INTO AFFECTED EYE(S) BY OPHTHALMIC ROUTE EVERY 8 HOURS Active quinapriL (ACCUPRIL) 40 mg tablet 12/09/19 21 Active coenzyme Q10 (Co Q-10) 10 mg capsule Co Q-10 Active multivit with minerals/lutei n (MULTIVITAMIN 50 PLUS ORAL) multivitamin Act daphne cyanocobalamin 2,000 mcg tablet Vitamin B12 Active cholecalcifero l (Vitamin D3) 400 unit capsule Vitamin D3 Active traZODone (DESYREL) 50 mg tablet TAKE ONE-HALF TABLET BY MOUTH ONCE DAILY AT BEDTIME FOR THREE DAYS THEN INCREASE TO ONE TABLET ONCE DAILY AT BEDTIME THEREAFTER 04/12/20 24 Active metoprolol (LOPRESSOR) 100 mg tablet TAKE 1 & 1/2 (ONE & ONE-HALF) TABLETS BY MOUTH TWICE DAILY 04/05/20 24 Active lisinopriL (PRINIVIL,ZEST RIL) 40 mg tablet Take 1 tablet (40 mg total) by mouth daily 04/12/20 Active gabapentin (NEURONTIN) 100 mg capsule TAKE 1 CAPSULE BY MOUTH TWICE DAILY BUT MAY INCREASE TO 1-3 CAPSULES 2-3 TIMES DAILY. 04/12/20 025 Discontinued Active Problems Problem Noted Date Diagnosed Date Gastroesophageal reflux disease 08/07/2012 Hiatal hernia 08/07/2012 Difficulty in swallowing 08/07/2012 Dysphonia 02/23/2012 Encounters Date Type Department Care Team Description 11/25/2024 11:00 AM CDT Office Visit [facility] General Neurology [address] [facility] 6th [place] [address] [place] [address] Lars Merritt Jr., MD Other chronic pain (Primary Dx) 11/08/2024 12:00 PM CDT Clinical Support [facility] Neuro Psychology [address] [facility] [address] [place] [address] Becca Stoddard, PhD Memory loss 11/04/2024 10:30 AM CDT Office Visit [facility] Neurosurgery [address] [place] [address] [address] [place] [address] Gerardo Bettencourt MD Degenerative cervical spinal stenosis 11/04/2024 9:38 AM CDT - 11/04/2024 11:59 PM CDT Hospital Encounter [facility] [address] [place] [address] [address] [place] [id number] Low back pain, non-specific; Thoracic spine pain; Neck pain Discharge Disposition: Discharge to home or self care 11/04/2024 Orders Only [facility] Neurosurgery [address] [place] [address] Office [facility] [address] [place] [address] Gerardo Bettencourt MD Low back pain, non-specific (Primary Dx) 11/01/2024 Orders Only [facility] Neurosurgery [address] [place] [address] [place] [phone] Gerardo Bettencourt MD Low back pain, non-specific (Primary Dx); Thoracic spine pain; Neck pain 10/24/2024 Telephone [facility] Scheduling [address] [place] [address] Aspen Simon 10/23/2024 Telephone [facility] General Neurology [address] [facility] 6th [place] [address] [place] [phone] Anika Perkins RN 10/23/2024 Telephone [facility] General Neurology [address] [facility] 6th [address] [place] [phone] Lars Merritt Jr., MD 10/21/2024 Documentation [facility] [address] [facility] [address] [place] [address] Lucio Christine MD 10/17/2024 10:15 AM CDT - 10/17/2024 11:59 PM CDT Hospital Encounter [facility] [address] [place] [address] Discharge Disposition: Discharge to home or self care 10/17/2024 8:57 AM CDT - 10/17/2024 11:59 PM CDT Hospital Encounter [facility] [address] [place] [id number] [place]mbalance; Sensory loss Discharge Disposition: Discharge to home or self care 10/17/2024 8:56 AM CDT - 10/17/2024 11:59 PM CDT Hospital Encounter [address] [address] [place]mbalance; Sensory loss Discharge Disposition: Discharge to home or self care 10/17/2024 8:56 AM CDT - 10/17/2024 11:59 PM CDT Hospital Encounter [address] [address] Imbalance; Sensory loss Discharge Disposition: Discharge to home or self care 10/10/2024 Telephone [facility] General Neurology [address] [facility] Medicine 6th [place] [address] [place] [address] Anika Perkins, RN from Last 3 Months Immunizations Immunization Administration [...] 04/17/2016 - 04/16/2017 ANKLE FRACTURE SURGERY HYSTERECTOMY FEMUR FRACTURE SURGERY 04/17/2007 - 04/16/2008 Medical History Medical History Date Comments Hypertension Osteoporosis Pancreatitis 2017 Neuropathy Hearing loss Anemia Deep vein thrombosis (HCC) Gastric reflux Glaucoma Osteoarthritis Family History Medical History Relation Name Comments Diabetes Brother 1 Hypertension Brother 1 Diabetes Brother 2 Hypertension Daughter Cancer Father Pancreatic cancer Father Cancer Mother Lymphoma Mother Hypertension Son Lung cancer Son Relation Name Status Comments Brother 1 Brother 2 Alive Daughter Alive Father Mother Son Social History Tobacco Use Types Packs/Day Years Used Date Smoking Tobacco: Former Cigarettes Smokeless Tobacco: Never Tobacco Cessation:Counseling Given: No AUDIT-C Answer Date Recorded Q1: How often do you have a drink containing alc ohol? 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 Gender Identity Female 02/17/2021 7:34 PM CDT Sexual Orientation Straight 02/17/2021 7: 34 PM CDT Obstetrics History Last Filed Vital Signs Vital Sign Reading Time Taken Comments Blood Pressure 122/78 11/25/2024 10:51 AM CDT Pulse 58 11/25/2024 10:51 AM CDT Temperature 36.8 C (98.2 F) 08/21/2024 12:39 PM CDT Respiratory Rate 16 02/19/2021 9:02 AM CDT Oxygen Saturation 96% 08/21/2024 12:39 PM CDT Inhaled Oxygen Concentration - - Weight 65.6 kg (144 lb 9.6 oz) 11/25/2024 10:51 AM CDT Height 162.6 cm (5' 4) 11/25/2024 10:51 AM CDT Body Mass Index 24.82 11/25/2024 10:51 AM CDT Plan of Treatment Health Maintenance Due [...] Procedure Name Priority Date/Time Associated Diagnosis Comments XR SCOLIOSIS 6 OR MORE VIEWS Schedule Routine, Read Routine (OP Routine) 11/04/2024 11:09 AM CDT Low back pain, non-specific Thoracic spine pain Neck pain EMG/NCV Routine 10/17/2024 11:48 AM CDT Sensory loss MRI LUMBAR SPINE WO CONTRAST Schedule Routine, Read Routine (OP Routine) 10/17/2024 10:18 AM CDT Imbalance Sensory loss MRI THORACIC SPINE WO CONTRAST Schedule Routine, Read Routine (OP Routine) 10/17/2024 10:11 AM CDT Imbalance Sensory loss MRI CERVICAL SPINE WO CONTRAST Schedule Routine, Read Routine (OP Routine) 10/17/2024 10:11 AM CDT Imbalance Sensory loss from Last 3 Months Results * XR Scoliosis 6 or More Views (11/04/2024 11:09 AM CDT) Anatomical Region Laterality Modality Spine N/A Computed Radiogr aphy 11/04/2024 1:17 PM CDT Impressions 11/04/2024 3:13 PM CDT 1. Moderate to severe degenerative disc disease throughout the cervical, thoracic, and lumbar spine with mild rotatory scoliosis and anterior sagittal imbalance. Dictated by: Ronald Meng MD The radiology attending physician has personally reviewed this study, and had reviewed and/or edited this written report and agrees with it. Electronically signed by: Noe Araujo M.D. Narrative 11/04/2024 3:13 PM CDT EXAMINATION: XR SCOLIOSIS 6 OR MORE VIEWS HISTORY: Neck and back pain COMPARISON: 06/29/2020, MRI from 10/17/2024 FINDINGS: AP and lateral views entire spine are submitted for interpretation including dedicated views of the cervical, thoracic, and lumbar spine with flexion and extension views of the cervical and lumbar spine, a total of 14 radiographs. Mild thoracic levoscoliosis and lumbar dextroscoliosis centered at L3 is present. There is no coronal imbalance or pelvic obliquity. Mild anterior sagittal imbalance. A left femoral medullary nail is noted. Multilevel degenerative changes throughout the spine are present, greatest from C4-C6. Whether severe degenerative disc disease and facet arthropathy. There is loss of usual cervical lordosis without compression fracture or suspicious prevertebral soft tissue swelling. Mild anterolisthesis of C2-C3. There is hypomobility of the cervical spine with flexion and extension. No dynamic listhesis. There is mild exaggeration of the thoracic kyphosis without acute compression fracture. Multilevel degenerative disc disease in the thoracic spine is present in greatest along the scoliotic curvature. There is grade 1 anterolisthesis of L4-L5 with multilevel degenerative disc disease and facet arthropathy, greatest from L4-L5. There is no change in listhesis with flexion or extension. Procedure Note Noe Araujo MD - 11/04/2024 EXAMINATION: XR SCOLIOSIS 6 OR MORE VIEWS HISTORY: Neck and back pain COMPARISON: 06/29/2020, MRI from 10/17/2024 FINDINGS: AP and lateral views entire spine are submitted for interpretation including dedicated views of the cervical, thoracic, and lumbar spine with flexion and extension views of the cervical and lumbar spine, a total of 14 radiographs. Mild thoracic levoscoliosis and lumbar dextroscoliosis centered at L3 is present. There is no coronal imbalance or pelvic obliquity. Mild anterior sagittal imbalance. A left femoral medullary nail is noted. Multilevel degenerative changes throughout the spine are present, greatest from C4-C6. Whether severe degenerative disc disease and facet arthropathy. There is loss of usual cervical lordosis without compression fracture or suspicious prevertebral soft tissue swelling. Mild anterolisthesis of C2-C3. There is hypomobility of the cervical spine with flexion and extension. No dynamic listhesis. There is mild exaggeration of the thoracic kyphosis without acute compression fracture. Multilevel degenerative disc disease in the thoracic spine is present in greatest along the scoliotic curvature. There is grade 1 anterolisthesis of L4-L5 with multilevel degenerative disc disease and facet arthropathy, greatest from L4-L5. There is no change in listhesis with flexion or extension. IMPRESSION: 1. Moderate to severe degenerative disc disease throughout the cervical, thoracic, and lumbar spine with mild rotatory scoliosis and anterior sagittal imbalance. Dictated by: Ronald Meng MD The radiology attending physician has personally reviewed this study, and had reviewed and/or edited this written report and agrees with it. Electronically signed by: Noe Araujo M.D. us Gerardo Bettencourt MD IMG XR PROCEDURES Final Re sult * EMG/NCV - (10/17/2024 11:48 AM CDT) Anatomical Region Laterality Modality EMG, EMG Impressions 10/17/2024 11:48 AM CDT History: This is 83 years old patient being evaluated for tingling and numbness of right upper and lower extremities. Nerve conduction studies: Right median motor nerve conduction study showed slightly prolonged DML, normal CMAP amplitude, normal motor nerve conduction velocity and normal F wave latency. Right ulnar motor nerve conduction study showed normal DML, normal CMAP amplitude, normal motor nerve conduction velocity and normal F wave latency. Right radial antidromic sensory nerve conduction study showed normal SNAP peak latency, normal amplitude and normal sensory nerve conduction velocity. Right median orthodromic sensory nerve conduction study showed moderate prolonged SNAP peak latency, normal amplitude and slow sensory nerve conduction velocity. Right ulnar orthodromic sensory nerve conduction study showed normal SNAP peak latency, normal amplitude and normal sensory nerve conduction velocity. Right median and right radial SNAP peak latency comparison study using ring electrodes showed SNAP peak latency 2.1 ms for right radial nerve and 5.4 ms for right median nerve. Right peroneal motor nerve conduction study when recording from the EDB showed normal DML, normal CMAP amplitude, normal motor nerve conduction velocity and normal F wave latency. Right peroneal motor nerve conduction study when recording from the EDB showed normal DML, normal CMAP amplitude when stimulated at ankle, borderline low CMAP amplitude when stimulated below and above fibular head, normal motor nerve conduction velocity and normal F wave latency. Right peroneal motor nerve conduction study when recording from the tibialis anterior showed normal DML, normal CMAP amplitude, normal motor nerve conduction velocity. Right tibial motor nerve conduction study showed normal DML, normal amplitudes, normal motor nerve conduction velocity and normal F wave latency. Bilateral medial plantar and bilateral lateral plantar antidromic sensory nerve conduction studies did not induce any response. EMG studies: The concentric needle electrode examination was performed on right FDI, APB, flexor carpi radialis, biceps and deltoid, as well as right tibialis anterior, gastrocnemius medialis, peroneus longus, vastus medialis and extensor digitorum brevis. There was no evidence of acute or chronic denervation or reinnervation. The interference pattern is full in all muscle tested. Impression: This is an abnormal study. There was electrophysiologic evidence suggestive of: 1. Right median sensorimotor entrapment neuropathy (mild motor fiber, moderate sensory fiber) at the flexor retinaculum, for example, carpal tunnel syndrome. 2. Absent response from bilateral medial plantar and bilateral lateral plantar sensory nerve. The finding is nonspecific. 3. There was no electrophysiologic evidence suggestive of significant large fiber neuropathy of right lower extremity. The needle EMG study of right upper and the right lower extremity did not show any ongoing denervation. The clinical correlation is recommended. us Lars Merritt Jr., MD NEUROLOGY ORDERABL ES Final Result * MRI Lumbar Spine WO Contrast (10/17/2024 [...] arthropathy. Flattening of the ventral thecal sac. Bbfc-kdevmkp-zqaa-right lateral recess effacement. Mild left and no significant right neural foraminal narrowing. L2-L3: Disc bulge with thickened ligamentum flavum and facet arthropathy. Mild spinal canal stenosis. No significant neural foraminal narrowing. L3-L4: Disc bulge and superimposed central disc protrusion. Thickened ligamentum flavum and facet arthropathy. Dkrq-ci-vcuripbu spinal canal stenosis. No significant neural foraminal narrowing. L4-L5: Anterolisthesis of L4 on L5 with unroofing of the disc and marginal spur formation. Superimposed central disc protrusion or calcified disc. Thickened ligamentum flavum and facet arthropathy. Vfrl-fn-fqvqghqt spinal canal stenosis. Ocakq-uyommmb-ywiz-left lateral recess narrowing. No significant neural foraminal [...] Delfino Brooks D.O. AP: AP Report ID: [id number] Reading Location: [place] [address] Procedure Note Delfino Brooks, DO - 10/17/2024 [...] arthropathy. Flattening of the ventral thecal sac. Erwh-teblxiz-rkbg-right lateral recess effacement. Mild left and no significant right neural foraminal narrowing. L2-L3: Disc bulge with thickened ligamentum flavum and facet arthropathy. Mild spinal canal stenosis. No significant neural foraminal narrowing. L3-L4: Disc bulge and superimposed central disc protrusion. Thickened ligamentum flavum and facet arthropathy. Aksx-wu-kbbwozec spinal canal stenosis. No significant neural foraminal narrowing. L4-L5: Anterolisthesis of L4 on L5 with unroofing of the disc and marginal spur formation. Superimposed central disc protrusion or calcified disc. Thickened ligamentum flavum and facet arthropathy. Swbp-mz-eqkxrjvoltwwff canal stenosis. Dfhyd-lburqza-ntwf-left lateral recess narrowing. No significant neural foraminal [...] Delfino Brooks D.O. AP: AP Report ID: [id number] Reading Location: [id number] us Lars Merritt Jr., MD [facility] [place] PROCEDURES Final Result * MRI Thoracic [...] the thoracic spine. Few scattered Schmorl's nodes. Mhkp-zp-fvtgnqmu endplate degenerative changes and marginal spur formation. [...] concurrently obtained lumbar spine MRI. IMPRESSION: 1. Tiuh-kw-txcyhtyl thoracic spine degenerative changes. No high-grade spinal canal or neural foraminal narrowing. 2. Other findings as above. THIS IS AN ELECTRONICALLY VERIFIED FINAL REPORT 10/17/2024 1:36 PM - Electronically signed by Delfino Brooks D.O. AP: AP Report ID: [id number] Reading Location: [id number] Procedure Note Delfino Brooks, DO - 10/17/2024 [...] the thoracic spine. Few scattered Schmorl's nodes. Wqkk-fd-jgkanzdx endplate degenerative changesand marginal spur formation. Rounded [...] concurrently obtained lumbar spine MRI. IMPRESSION: 1. Kjnf-aw-taamizek thoracic spine degenerative changes. No high-grade spinal canal or neural foraminal narrowing. 2. Other findings as above. THIS IS AN ELECTRONICALLY VERIFIED FINAL REPORT 10/17/2024 1:36 PM - Electronically signed by Delfino Brooks D.O. AP: AP Report ID: [id number] Reading Location: [id number] Lars Merritt Jr., MD IM MRI PROCEDURES Final Result * MRI Cervical [...] stenosis. Uncovertebral spurring and facet arthropathy with rjks-or-scjhgqcy left and no significant right neural foraminal narrowing. C3-C4: Posterior disc osteophyte complex indents the ventral cord. Aepa-ci-tjzbhkdy ventral spinal canal stenosis. Uncovertebral spurring and facet arthropathy with moderate to severe left and mild right neural foraminal narrowing. C4-C5: Posterior disc osteophyte complex flattens the ventral cord. Thickened ligamentum flavum. Oqzj-fm-egxmhucx ventral spinal canal stenosis. Uncovertebral spurring and [...] Delfino Brooks D.O. AP: AP Report ID: [id number] Reading Location: [id number] Procedure Note Delfino Brooks, DO - 10/17/2024 [...] T2 on T3. Mild retrolisthesis C4 on I9njybuhq C6 on C7. No acute compression fracture [...] stenosis. Uncovertebral spurring and facet arthropathy with oong-kx-kuozsxpy left and nosignificant right neural foraminal narrowing. C3-C4: Posterior disc osteophyte complex indents the ventral cord. Ltmi-lc-bkbiavjb ventral spinal canal stenosis. Uncovertebral spurringand facet arthropathy with moderate to severe left and mild right neuralforaminal narrowing. C4-C5: Posterior disc osteophyte complex flattens the ventral cord.Thickened ligamentum flavum. Qpjm-rz-ysgpgyxz ventral spinal canal stenosis. Uncovertebral spurring and [...] Delfino Brooks D.O. AP: AP Report ID: [id number] Reading Location: [place] [address] Lars Merritt Jr., MD [facility] MRI PROCEDURES Final Result from Last 3 Months Insurance MEDICARE [facility] Address: [facility] [address] [place] [address] [facility] [place] [address] [employer] Care Teams Safety And Health Manager Relationship Specialty Start Date End Date Mora Canada MD PCP - General Family Medicine 04/26/24 Mora Canada MD Family Medicine 04/26/24
--- OUTSIDE RECORDS SUMMARY | 2024-11-30 12:10 | XMS_ITS | Continuity of Care Document ---
Author Organization [facility] [place] [address] [place] [address] Phone Care Team Providers Care Player Services Representative Name Role Phone Mc OD, Teo Unavailable Unavailable Procedures Procedure Date Cntct Lens Hydrophil Bifocal Medical Tax Contact Lens Check Contact Lens Check Contact Lens Check Office/outpatient Visit, Est Refraction Contact Lens Fit, Med Superv, Level 1 Au Visual Field Examination-Professional Aynaa l-2009 Visual Field Examination(s) Office/outpatient Visit, Est [...] Diagnoses Date Provider Providers Copied on Encounter [facility], [address], [place], [place], [id number], tel:[phone] [facility] No Information Sep-2 2-201 0 Mc OD Teo. [address] [facility] , [address], [place], [address], [place]. tel:[phone] Referring Provider: Teo Mc OD A, [address] [facility] [address], [place], [address]. tel:[phone] [facility], [address] [place] [address] [address], [place], [place], [address], [place] tel:[phone] [facility] No Information Aug-2 7-201 0 Mc OD Teo. [address] [facility] , [address], [place], [address], [place]. tel:[phone] [facility], [address] [place] [address] [address], [place], [place], [address], [place] tel:[phone] [facility] No Information Aug-2 0-201 0 Mc OD Teo. [address] [facility] , [address], [place], [place], [facility], [place]. tel:[phone] [facility], [address] [place] [address] [address], [place], [place], [address], [place] tel:[phone] [facility] No Information Aug-1 3-201 0 Mc OD Teo. [address] [facility] , [address], [place], [place], [facility], [place]. tel:[phone] Office/outpat ient Visit, Est [facility], [address], [place], [place], [address], [place] tel:[phone] [facility] No Information Aug-0 5-201 0 Mc OD Teo. [address] [facility] , [address], [place], [address], [place]. tel:[phone] [facility], [address] [place] [address] [address], [place], [place], [address], [place] tel:[phone] [facility] No Information 2 6-201 0 Krishnasamy Arben. [address], [place], [address], [place]. tel:[phone] Referring Provider: Arben borden, [address], [place], [address]. tel:[phone] [facility], [address] [place] [address] [address], [place], [place], [address], [place] tel:[phone] [facility] No Information 0 9-201 0 Krishnasamy Arben. Critical access hospital1 [facility] [address], [place], [facility], [place]. tel:[phone] Referring Provider: Arben borden, [address] [place], [place] [address]ate [facility] [address], [place], [place], [facility]. tel:[phone] Office/outpat ient Visit, [facility], [address] [place] [address] [address], [place], [place], [address], [place] tel:[phone] [facility] No Information 0 6-201 0 Krishnasamy Arben. [facility] [address], [place], [address], [place]. tel:[phone] Referring Provider: Arben borden, [facility] [address], [place], [facility]. tel:[phone] [facility], [address] [place] [address] [address], [place], [place], [address], [place] tel:[phone] [facility] No Information 0 8-200 9 Krishnasamy Arben. [address] [facility] [address], [place], [facility], [place]. tel:[phone] Referring Provider: Arben borden, [facility] Corporate [facility] [address], [place], [facility]. tel:[phone] [facility], [address], [place], [place], [address], [place] tel:[phone] [facility] No Information 0 6-200 9 Krishnasamy Arben. [address] [facility] [address], [place], [address], [place]. tel:[phone] Referring Provider: Arben borden, [address] [facility] [address], [place], [address]. tel:[phone] [facility], [address], [place], [place], [address], [place] tel:[phone] [facility] No Information 0 1-200 9 Krishnasamy Arben. [address], [address], [place]. tel:[phone] Office/outpat ient Visit, Est [facility], [address], [place], [place], [address], [place] tel:[phone] [facility] No Information 6-200 8 Krishnasamy Arben. Critical access hospital1 [facility] [address], [place], [address], [place]. tel:[phone] Office/outpat ient Visit, Est [facility], [address], [place], [place], [address], [place] tel:[phone] [facility] No Information 1 5-200 7 Jina Kirby. [address] [facility] [place], [address], [place]. tel:[phone] Referring Provider: Kofi Sidhu, [address] [facility] [address], [place], [address] . tel:[phone] [facility], [address], [place], [place], [address], tel:[phone] [facility] No Information 0-200 7 Jina Kirby. [address] [facility] [place], [place], [address], . tel:[phone] Referring Provider: Kofi Sidhu, [address] [facility] [place], [address] . tel:[phone] [facility], [address], [place], [place], [address], tel:[phone] [facility] No Information 4-200 7 Jina Kirby. [address] [facility], [facility] [place], [address], . tel:[phone] Referring Provider: Kofi Sidhu, [address] [place], [address] . tel:[phone] Office/outpat ient Visit, [facility], [address], [place], [place], [address], [place] tel:[phone] [facility] No Information 2-200 7 Jina Kirby. [address] [place], [place], [address], . tel:[phone] Family History Family Member Type Diagnosis Age At Onset No Information Payers Payer name Insurance type Covered green party ID Authoriza tion(s) No Information Social [...]
== END 2024-11-30 12:08 | disposition home or self-care (01) ==
PROVIDERS: PCP Family Medicine; Visit Provider Family Medicine
DX: N28.89 Other specified disorders of kidney and ureter (principal); D35.01 Benign neoplasm of right adrenal gland
CPT/HCPCS: 74183; A9577

== ENCOUNTER 2025-03-20 08:39 | Emergency (ER) | payer MEDICARE, OTHER, SELFPAY ==
--- NOTE | ~2025-03-20 | XR_ITS ---
XR orbits min 4V 03/20/2025 09:44 INDICATION: Status post fall. Swelling right eye. PROCEDURE: 4 views of the orbits COMPARISON: No prior studies for comparison. FINDINGS: Fracture, dislocation or subluxation is not identified. Bilateral cochlear device is noted. The soft tissues appear within normal limits. No foreign bodies are identified. IMPRESSION: 1: NO ACUTE BONE OR JOINT ABNORMALITY IDENTIFIED. Reviewed, dictated and finalized at location I. HETER HAND
--- NOTE | ~2025-03-20 | XR_ITS ---
EXAMINATION: XR ribs RT 2V, 03/20/2025 9:14 SENIOR C DEVELOPER HISTORY: rib pain COMPARISON: No comparisons available. Findings: No acute fracture or malalignment. No significant degenerative changes. Soft tissues unremarkable. Impression: No acute fracture or malalignment. Reviewed, dictated and finalized at location P. OR C DEVELOPER Impression: No acute fracture or malalignment.
--- NOTE | 2025-03-20 08:44 | ED.HEATRA ---
HPI - Head Injury General Chief complaint: Fall Stated complaint: FALL/FACIAL INJURY Time Seen by Provider: 03/20/25 08:46 Source: patient and family Mode of arrival: ambulatory Limitations: no limitations History of Present Illness HPI Narrative: Taylor is a 84 year old female patient presenting to the clinic today with c/o fall/facial injury. She reports she fell sometime this morning and hit the right side of her head. Is not take any blood thinners. She denies a headache or any neck pain at this time. Has a small superficial laceration with controlled bleeding to the right eyebrow region. Denies loss of consciousness. States she has tripped on a rolled up a rug and possibly hit her head on the table. She is alert and oriented x4. Is able to walk with a single-point cane. Is also complaining some right-sided rib pain that occurred when she fell approximately 1.5 weeks ago. States she was getting clothes out of the washer and slipped and hit her ribs on the side of the washer. Is requesting x-rays for her ribs as well. Related Data Home Medications ?Medication ?Instructions ?Recorded ?Confirmed ?Last Taken ?Type cholecalciferol (vitamin D3) 50 2,000 unit PO DAILY 05/14/19 03/20/25 09/03/21 History mcg (2,000 unit) tablet (Vitamin D3) pyridoxine (vitamin B6) 100 mg 100 mg PO DAILY 03/02/21 03/20/25 09/03/21 History tablet brimonidine 0.2 % eye drops 1 drp EACH EYE BID 09/02/21 03/20/25 09/06/21 History cyanocobalamin (vitamin B-12) 1,000 mcg PO DAILY 09/14/21 03/20/25 Unknown History 1,000 mcg tablet multivitamin-min 1 tablet PO DAILY 09/14/21 03/20/25 Unknown History 75-VS-rizmudkn-lutein 2.8 mg-500 mcg-500 mcg tablet gotcvaww-ucm-xpbip8 250 mg-dha 90 1 cap PO DAILY 12/05/22 03/20/25 Unknown History mg-epa 160 hj-sxvf-zjwl-zeax capsule (Ocuvite Adult 50 Plus) calcium 600 mg (as 1 tablet PO DAILY 10/17/24 03/20/25 Unknown History carbonate)-vitamin D3 5 mcg (200 unit) tablet Allergies Allergy/AdvReac Type Severity Reaction Status Date / Time alendronate sodium (From AdvReac Intermediate upset Verified 03/20/25 08:57 Fosamax) stomach cephalexin AdvReac Unknown YEAST Verified 03/20/25 08:57 INFECTION meperidine AdvReac Unknown LOW BLOOD Verified 03/20/25 08:57 PRESSURE, N/V Review of Systems Review of Systems: Pertinent positives per HPI. Patient denies any fever, chills, rash, headache, visual changes, dizziness, cough, runny nose, sore throat, shortness of breath, chest pain, palpitations, nausea, vomiting, diarrhea, constipation, abdominal pain, or any urinary issues. [facility] Past Medical History Medical History Fever and chills Cerebrovascular disease Chronic headache Cerebral cavernoma Prediabetes Anemia Low vitamin D level DVT (deep venous thrombosis) DVT prophylaxis Encephalopathy Trimalleolar fracture of ankle, closed Skin cancer Osteopenia Displaced trimalleolar fracture of left ankle Glaucoma Gastroesophageal reflux disease Hypertension Dysphagia Bimalleolar ankle fracture Bimalleolar avulsion fracture of left ankle Anosmia Arthritis High cholesterol Hearing loss Ankle arthritis Paresthesia Ankle arthralgia (~07/22/20) Osteoporosis Post-menopausal Vitamin D deficiency disease HTN (hypertension) Surgical History Surgical History History of open reduction and internal fixation (ORIF) procedure (09/06/21) Displaced left ankle trimalleolar fracture. History of benign breast biopsy History of laparoscopic cholecystectomy (08/2016) History of colonoscopy Internal hemorrhoids and diverticulosis. Status post trigger finger release (08/2009) Right 3rd finger. History of repair of hip fracture (09/2008) Internal fixation with gamma nail of a left intertrochanteric hip fracture. History of meniscectomy of right knee (08/2012) History of sacrocolpopexy (04/2014) For uterine prolapse. History of bilateral salpingo-oophorectomy (04/2014) History of abdominal supracervical subtotal hysterectomy (04/2014) History of total left hip arthroplasty Family History Family History Mother Family history of malignant neoplasm Family history of lymphoma, Onset Age: 81 Sibling Family history of diabetes mellitus in first degree relative Father Family history of pancreatic cancer, Onset Age: 58 Son Lung cancer Other Arthritis Cerebrovascular accident Diabetes mellitus Family history of lung cancer High cholesterol Hypertension Social History Social History Social History: Surrogate decision maker: Parker or Julieth Perez, and daughter. Code status: Full code. Smoking status: Never smoker Second hand tobacco smoke exposure: No Alcohol intake: never Substance use: never Substance use type: does not use Lack of Transportation: No Lack of Food: Never True Current Housing: I Have Housing Concerned About Future Housing: No Difficulty Paying Gas/Electric Bills: No Difficulty Paying for Meds: No Currently Unemployed: No Education: High School Diploma/GED Difficulty w/ Childcare or Family Care: No Living arrangements: with family Occupation/Education: retired Spiritual care concerns: No Comments At the time of my signature, I reviewed and agree with the nursing past medical, surgical, social, and family history. There is no relevant family history pertinent to the patient complaint. Exam Narrative: General: Well-developed, well nourished, in no apparent distress Head: Normocephalic, bruising with mild swelling to the right lower and orbit with tenderness to palpation without step-off deformity, 1 cm superficial laceration just above the right eyebrow, bleedings controlled Eyes: Pupils equally round and reactive to light bilaterally, EOM intact, sclera and conjunctive clear, no discharge, lids normal Ears: TMs intact and clear, ear canals clear, no drainage, grossly hearing normal. Nose: Nares patent, no discharge, no inflammation, no sinus tenderness. Mouth: Oropharynx without lesions or masses, good dentition, MMM. Tongue midline, even rise and fall of uvula Neck: Supple, trachea midline, no enlargement of anterior or posterior cervical nodes, no thyroid masses or goiter palpable. Cardio: Regular rate and rhythm, s1 and s2 normal, no murmur appreciated. Resp: Clear to auscultation bilaterally anteriorly and posteriorly, no rhonchi, rales, wheezing or rubs Musculoskeletal: No deformity, non-tender to palpation, grossly normal range of motion, muscle strength strong and equal, peripheral pulse strong, no edema, no cyanosis, normal gait and station Neuro: Alert and oriented x4 with normal speech, no focal deficits, cranial nerves I through XII intact, muscle strength 4 out of 5, sensation intact bilaterally. Course Course Level of Care: Express Care Visit Vital Signs Vital signs: Vital Signs Temperature 36.5 C 03/20/25 08:58 Pulse Rate 107 H 03/20/25 08:58 Respiratory Rate 16 03/20/25 08:58 Blood Pressure 189/96 H 03/20/25 08:58 Pulse Oximetry 99 03/20/25 08:58 Temperature 36.5 C 03/20/25 08:58 Pulse Rate 107 H 03/20/25 08:58 Respiratory Rate 16 03/20/25 08:58 Blood Pressure 189/96 H 03/20/25 08:58 Pulse Oximetry 99 03/20/25 08:58 MDM MDM Narrative Medical decision making narrative: At the time of visit patient is resting comfortably on the exam table. Patient appears to be nontoxic. C/o fall/facial injury. She reports she fell sometime this morning and hit the right side of her head. Is not take any blood thinners. She denies a headache or any neck pain at this time. Has a small superficial laceration with controlled bleeding to the right eyebrow region. Denies loss of consciousness. States she has tripped on a rolled up a rug and possibly hit her head on the table. She is alert and oriented x4. Is able to walk with a single-point cane. Denies any headache or neck pain at this time. Is also complaining some right-sided rib pain that occurred when she fell approximately 1.5 weeks ago. States she was getting clothes out of the washer and slipped and hit her ribs on the side of the washer. Is requesting x-rays for her ribs as well. On exam patient has a 1 cm superficial laceration just above the right eyebrow, x-rays of the right ribs and right orbits ordered. Tetanus not up-to-date. Tetanus was ordered Medications: Tdap 0.5 mL IM given in the clinic today. Diagnostics: X-ray of the right ribs and right orbit is negative for any sign of fracture or malalignment. Plan: I suspect patient has a hematoma, superficial laceration, and rib contusion. Head injury instructions were reviewed with the patient and daughter and they voiced understanding. Supportive measures were discussed with the patient and they voiced understanding discharge instructions and agrees to treatment plan. Return precautions reviewed Differential Diagnosis Differential Diagnosis: Close head injury, concussion, facial laceration, contusion, hematoma, rib fracture, rib contusion Imaging Data Radiologist's impression: ITS Impressions Orbit X-Ray 03/20/25 09:45 IMPRESSION: 1: NO ACUTE BONE OR JOINT ABNORMALITY IDENTIFIED. Ribs X-Ray 03/20/25 09:45 Impression: No acute fracture or malalignment. Discharge Plan Discharge Clinical Impression: Superficial laceration, Hematoma, Fall from ground level Contusion of rib on right side Qualifiers: Encounter type: initial encounter Qualified Code(s): S29.8XXA - Other specified injuries of thorax, initial encounter Patient Disposition: Home Condition: Stable Instructions: Antibiotic Form, Hematoma (ED), Laceration Without Closure (ED), Rib Contusion (ED) Additional Instructions: X-ray of the orbits and right ribs are negative for any sign of fracture or malalignment. You have a superficial laceration to the right forehead/eyebrow. No closure was needed Keep wound clean and dry Watch for signs and symptoms of infection- redness, streaking, swelling, purulent discharge, or increase in pain. Tylenol as needed for headache for the first 24 hours then may take Ibuprofen Increase fluids and stay well hydrated. Avoid taking any sedative medications such as muscle relaxers, benadryl, benzos, or narcotic pain medication. Watch for red flag symptoms such as confusion, lethargy, nausea/vomiting, worsening of headache, visual changes, increase in dizziness, or any stroke-like symptoms. If these symptoms develop go to the Emergency Room immediately. Reduce stimuli- lights, computers, video games, smart phones, tv, and noise over the next 2 days. Increase stimuli gradually. If headache worsens with stimuli reduce stimuli to tolerable level. Apply ice to the affected area 20 minutes on/20 minutes off for the next 24 hours Follow up with your PCP in 3-5 days Patient Language: Sinhala Prescriptions: No Action calcium carbonate-vitamin D3 600 mg-5 mcg (200 unit) tablet 1 tablet PO DAILY pyridoxine (vitamin B6) 100 mg tablet 100 mg PO DAILY Ocuvite Adult 50 Plus 250 mg (90 mg-160 mg) capsule 1 cap PO DAILY cholecalciferol (vitamin D3) [Vitamin D3] 2,000 unit tablet 2,000 unit PO DAILY Rx Instructions: take with water and meal brimonidine 0.2 % drops 1 drp EACH EYE BID metoprolol tartrate 100 mg tablet 150 mg PO BID Qty: 270 1RF lisinopril 40 mg tablet 40 mg PO DAILY Qty: 90 1RF cyanocobalamin (vitamin B-12) 1,000 mcg Tablet 1,000 mcg PO DAILY Rx Instructions: take with water and meal tgcjnjry-[id number]-[id number]-KT-ccfsdcmm-kxg 2.8-500-500 mg-mcg-mcg Tablet 1 tablet PO DAILY Rx Instructions: take with food Follow-up/Referrals: UNKNOWN,DOCTOR [Primary Care Provider] Time of Disposition: 09:55 Quality NIHSS Nursing Documentation ED NIHSS nursing documentation: reviewed/agree
[2025-03-20 08:58] VITALS: BP 189/96; PULSE 107; RESP 16; TEMP 36.5; O2SAT 99
[2025-03-20] MEDS: TETANUS,DIPHTHERIA,AC PERTUSSIS ADULT (0.5 ML) BOOSTRIX IM (09:47)
[2025-03-20 10:15] VITALS: BP 158/80
--- NOTE | 2025-03-20 11:28 | PC.NURSE ---
0900 patient is awake, alert, oriented x3; able to comprehend questions, pleasant and cooperative mood. Patient has symmetrical facial features, speech is clear. Normal performance for finger to nose, heel to fang tests but patient has unsteady gait. Using cane for ambulatory assist-pt/daughter report patient uses walker for home use.
== END 2025-03-20 10:15 | disposition home or self-care (01) ==
PROVIDERS: Emergency Provider Nurse Practitioner Family
DX: S01.81XA Laceration without foreign body of other part of head, initial encounter (principal); S05.11XA Contusion of eyeball and orbital tissues, right eye, initial encounter; W18.09XA Striking against other object with subsequent fall, initial encounter; S29.8XXA Other specified injuries of thorax, initial encounter; Z23 Encounter for immunization; W01.198A Fall on same level from slipping, tripping and stumbling with subsequent striking against other object, initial encounter; I10 Essential (primary) hypertension; E78.00 Pure hypercholesterolemia, unspecified; I67.9 Cerebrovascular disease, unspecified; R73.03 Prediabetes; E55.9 Vitamin D deficiency, unspecified; M85.80 Other specified disorders of bone density and structure, unspecified site; H40.9 Unspecified glaucoma; K21.9 Gastro-esophageal reflux disease without esophagitis; M19.90 Unspecified osteoarthritis, unspecified site; M81.0 Age-related osteoporosis without current pathological fracture
CPT/HCPCS: 70200; 71100; 90471; 90715; 99214; G0463